=== PATIENT | female | born 1940 | race Caucasian/White ===

== ENCOUNTER 2016-11-20 17:00 | Inpatient (IN) | payer OTHER ==
[~2016-11-20] VITALS: Ht 152.4 cm; Wt 82.0 kg
[~2016-11-20 17:00] MED LIST: ALBU1AER9 INH; ALLO100T PO; CLOP1TAB15 PO; CRAN1CAP16 PO; DOCU100C31 PO; ERGO1TAB10 PO; INSUINJ SQ; LEVO50TA PO; LOVA40TA3 PO; MAGN1CAP4 PO; NYST100010 TOP; NYST80OI TOP; ONDA4TAB46 PO; OXYB5TAB74 PO; PANT40TA PO; POTA10CA28 PO; RANI150T3 PO; RIVA1TAB4 PO; SUCR1TAB29 PO; SYMIN160 INH; TRAM-10 PO
[2016-11-20] MEDS ORDERED: ALLO300T2 PO (17:10)
[2016-11-20] MEDS ORDERED: FERR325T5 PO (17:10)
[2016-11-20] MEDS ORDERED: MISC4CAP PO (17:41)
[2016-11-20] MEDS ORDERED: CRAN200C PO (17:41)
[2016-11-20] MEDS ORDERED: LEVO75TA5 PO (17:41)
[2016-11-20] MEDS ORDERED: MAGN1TAB19 PO (17:41)
[2016-11-20] MEDS ORDERED: POLY99.0 OPB (17:41)
[2016-11-20] MEDS ORDERED: OPTIRAY 320 IV PRN (17:45)
[2016-11-20] MEDS ORDERED: GUAI1TAB55 PO (17:47)
[2016-11-20] MEDS ORDERED: NVLNI SC (17:47)
[2016-11-20] MEDS ORDERED: TPRSR/25 PO (17:47)
[2016-11-20] MEDS ORDERED: POTA20TA13 PO (18:00)
[2016-11-20] MEDS ORDERED: PRVC/40 PO (18:00)
[2016-11-20] MEDS ORDERED: METO2.5T PO (18:00)
[2016-11-20] MEDS ORDERED: SERT25TA PO (18:00)
[2016-11-20] MEDS ORDERED: SCPTP TOP (18:00)
[2016-11-20] MEDS ORDERED: PRED20TA PO (18:00)
[2016-11-20] MEDS ORDERED: ONDA8TAB12 PO (18:04)
[2016-11-20 18:08] LABS: ISTAT CREATININE 1.2 mg/dl (0.6-1.3); ISTAT HEMOGLOBIN 12.9 g/dl (12.0-16.0); ISTAT IONIZED CALCIUM 1.22 mmol/l (1.12-1.32)
[2016-11-20] MEDS ORDERED: ACET325T96 PO (18:15)
[2016-11-20] MEDS ORDERED: SODIENE PR (18:15)
[2016-11-20] MEDS ORDERED: BISA10SU7 PR (18:15)
[2016-11-20] MEDS ORDERED: IPRASOL4 INH (18:15)
[2016-11-20] MEDS ORDERED: TRAM-10 PO (18:15)
[2016-11-20] MEDS ORDERED: MOML PO (18:15)
[2016-11-20 18:25] LABS: ALT/SGPT 18 U/L (12-78); BLOOD UREA NITROGEN 51 mg/dl (7-18); BUN/CREATININE RATIO 42.5 (10-20); CALCIUM 9.9 mg/dl (8.5-10.1); CARBON DIOXIDE 29 mmol/L (21-32); CHLORIDE 93 mmol/L (98-107); GLUCOSE 217 mg/dl (70-99); POTASSIUM 3.1 mmol/L (3.5-5.1); SODIUM 136 mmol/L (136-145)
[2016-11-20 18:29] LABS: ALB/GLOB RATIO 0.6 (0.9-2); ALKALINE PHOSPHATASE 110 U/L (45-117); AST/SGOT 16 U/L (15-37)
[2016-11-20 18:47] LABS: HEMATOCRIT 36.2 % (37-47); MEAN CELL VOLUME 83.4 fL (80-100); MEAN CORPUSCULAR HEMOGLOBIN 27.9 pg (25-34); MEAN CORPUSCULAR HGB CONC 33.4 g/dl (32-36); MEAN PLATELET VOLUME 10.1 fL (7.4-10.4); PLATELET COUNT 352 K/uL (130-400); RED BLOOD COUNT 4.34 M/uL (4.2-5.4); WHITE BLOOD COUNT 31.36 K/uL (4.8-10.8)
[2016-11-20 18:48] LABS: BASO % 0.1 %; BASO ABS # 0.03 K/uL (0-0.2); COMPLETE YES; IG% 1.1 %; LYMPH % 3.5 %; LYMPH ABS # 1.09 K/uL (1.2-3.4); MONO % 2.1 %; NEUT % 93.2 %
[2016-11-20] MEDS ORDERED: FURO80TA63 PO (19:26)
--- NOTE | 2016-11-20 19:30 | DIAGNOSTIC IMAGING REPORT ---
CT ANGIOGRAPHY OF THE CHEST, PULMONARY EMBOLUS PROTOCOL CLINICAL HISTORY: Shortness of breath COMPARISON STUDY: Chest CT November 03, 2015 and chest radiograph October 18, 2016. TECHNIQUE: Following IV administration of 120 mL of Optiray-320, helical axial images of the chest were obtained utilizing the pulmonary embolus protocol. Maximal intensity projections and sagittal and coronal reformats were viewed on an independent 3D workstation. IV contrast was administered without complication. CT DOSE: 1713.64 mGy.cm FINDINGS: No pulmonary emboli are identified. The heart is moderately enlarged. There is no pericardial effusion. There are median sternotomy wires and a prosthetic aortic valve. No enlarged thoracic lymph nodes are present. The central airways are patent. No pneumothorax or pleural effusion is present. There are multifocal airspace opacities within both lower lobes. The abdomen and pelvis will be reported separately. A right pacemaker is in place. IMPRESSION: 1. No pulmonary emboli identified. 2. Multifocal airspace opacities within the lower lobes. An infectious etiology such as bronchopneumonia is favored. Atelectasis could appear similar but is considered less likely. 3. Moderate cardiomegaly. Electronically signed by: Yonathan Leung M.D. 11/20/2016 7:28 PM Dictated Date/Time: 11/20/2016 7:20 PM
[2016-11-20 19:31] LABS: INR 1.4 (0.9-1.1); PROTHROMBIN TIME (PATIENT) 14.8 SECONDS (9.0-12.0)
[2016-11-20 19:32] LABS: PARTIAL THROMBOPLASTIN RATIO 1.5
[2016-11-20] MEDS ORDERED: PIPERACILLIN/TAZOBACTAM 4.5 GM/100ML D5W IV STA (19:37)
[2016-11-20] MEDS ORDERED: VANCOMYCIN 1GM/270ML NSS IV STA (19:37)
--- NOTE | 2016-11-20 19:41 | DIAGNOSTIC IMAGING REPORT ---
CT OF THE ABDOMEN AND PELVIS WITH CONTRAST CLINICAL HISTORY: Previous diverticulitis. Abscess. Abnormal labs. COMPARISON STUDY: CT of the abdomen and pelvis October 18, 2016 TECHNIQUE: Following IV administration of 120 mL of Optiray-320, axial images of the abdomen and pelvis were obtained from the lung bases to the proximal femurs. Images were reviewed in the axial, sagittal, and coronal planes. IV contrast was administered without complication. Oral contrast was administered. FINDINGS: The chest will be reported separately. Several subcentimeter hepatic lesions are likely benign. These are too small to characterize. Bilateral adrenal nodules/nodularity remains unchanged. The spleen, pancreas and kidneys are unremarkable. No pneumatosis, free air or portal venous gas is present. Note is made of extensive diverticulosis of the colon. There is wall thickening of the distal descending colon and proximal to mid sigmoid colon with mild to moderate adjacent infiltration. This has improved since exam of October 18, 2016. The previously described diverticular abscess along the left aspect of the bladder dome has decreased in size. It now measures 2.9 x 1.8 cm. It previously measured 3.5 x 3.4 cm. This contains mostly gas with a small amount of fluid. There is an apparent tract to the skin, possibly from a prior percutaneous drainage. No additional abscesses are identified. There is no gas within the bladder. There is asymmetric wall thickening of the bladder adjacent to the abscess/diverticulitis. IMPRESSION: 1. Acute diverticulitis of the proximal sigmoid colon. Mild improvement since exam of October 18, 2016. Interval decrease in size of the diverticular abscess along the left aspect of the bladder dome status post apparent interval percutaneous drainage. This can be correlated with prior procedural history. Minimal amount of fluid within the cavity. No new abscess. A follow-up colonoscopy once the patient's acute symptoms resolve is recommended to exclude the less likely possibility of an underlying mass. 2. Persistent wall thickening of the bladder which is due to diverticulitis. No gas within the bladder to indicate a fistula at this time although the patient is at risk for development of a colovesicular fistula. Electronically signed by: Yonathan Leung M.D. 11/20/2016 7:39 PM Dictated Date/Time: 11/20/2016 7:28 PM
[2016-11-20 20:02] LABS: VEN BLOOD GAS BASE EXCESS 4.2 mmol/L; VENOUS BLOOD GAS PCO2 46 mmHg (38.0-50.0); VENOUS BLOOD GAS PO2 28 mmHg
[2016-11-20 20:04] LABS: VEN BLD GAS O2 SATURATION < 60.0 %
[2016-11-20 20:13] LABS: URINE APPEARANCE CLEAR (CLEAR); URINE BILIRUBIN NEG (NEG); URINE COLOR YELLOW; URINE EPITHELIAL CELL AUTO 0-5 /lpf (0-5); URINE NITRITE NEG (NEG); URINE PH 7.5 (4.5-7.5); URINE SPECIFIC GRAVITY 1.015 (1.000-1.030); UROBILINOGEN NEG (NEG); ZZURINE CULT IF INDIC CATH NO
[2016-11-20 20:17] LABS: MANUAL MICROSCOPIC REQUIRED? NO; REVIEW REQ? NO
--- NOTE | 2016-11-20 20:24 | EMERGENCY ROOM VISIT NOTE ---
History Report prepared by Odilon: Marielena Puga Under the Supervision of: Luisa MendiolaO. First contact with patient: 17:01 Chief Complaint: ABNORMAL LABS Stated Complaint: ABNORMAL LABS History of Present Illness The patient is a 76 year old female who presents to the Emergency Room with complaints of a persistent cough that began five weeks ago. She does admit that this has been getting worse. Staff notes that she has been coughing much more and becoming more short of breath. The patient states that she recently had diverticulitis and notes that she has an abscess in her abdomen from it. She states that she is not on antibiotics currently. The patient states that she developed a cough that has been persistent for a while now. EMS reports that the patient was sent here from [facility]. The patient states that her last bowel movement was yesterday. Pt denies headache, change in vision, fevers, chest pain, shortness of breath, nausea, vomiting, diarrhea, pain with urination, and melena. Source of History: patient Onset: five weeks ago Position: other (global) Quality: other (cough) Timing: other (persistent) Review of Systems See HPI for pertinent positives & negatives. A total of 10 systems reviewed and were otherwise negative. Past Medical & Surgical Medical Problems: (1) Acute respiratory failure with hypoxia (2) Collins's palsy (3) CHF (congestive heart failure) (4) COPD (chronic obstructive pulmonary disease) (5) COPD exacerbation (6) Diverticulitis (7) Ductal carcinoma in situ (DCIS) of left breast (8) Emphysema of lung (9) Frequent falls (10) Gait abnormality (11) GERD (gastroesophageal reflux disease) (12) hyperkalemia, acute kidney failure, fall (13) Leucocytosis (14) Pacemaker (15) Pneumonia (16) Sepsis (17) sepsis, UTI, severe hypokalemia Surgical Problems: (1) H/O aortic valve replacement (2) S/P AVR (aortic valve replacement) Family History Cancer Diabetes mellitus Heart disease Hypertension Social History Smoking Status: Never Smoker Alcohol Use: none Drug Use: none Marital Status: Housing Status: lives alone Occupation Status: retired Current/Historical Medications Scheduled Allopurinol (Zyloprim), 300 MG PO DAILY Allopurinol (Zyloprim), 100 MG PO DAILY Budesonide/Formoterol Fumarate (Symbicort 160/4.5 Inhaler ), 2 PUFFS INH BID Clopidogrel (Plavix), 75 MG PO DAILY Cranberry (Vaccinium Macrocarp (Cranberry Extract), 200 MG PO DAILY Docusate Sodium (Docusate Sodium), 100 MG PO BID Ferrous Sulfate (Ferrous Sulfate), 325 MG PO DAILY Furosemide (Lasix), 80 MG PO BID Guaifenesin Ext Rel (Mucinex Ext Rel), 600 MG PO Q12 Insulin Human NPH (Novolin N), 16 UNITS SC DAILY Levothyroxine Sodium (Levothyroxine Sodium), 75 MCG PO DAILY Loratadine (Claritin), 10 MG PO DAILY Magnesium Oxide (Mg Supplement (Magnesium Oxide), 400 MG PO BID Metolazone (Zaroxolyn), 2.5 MG PO 3XWK Metoprolol Succinate (Metoprolol Succinate ER), 12.5 MG PO BID Oxybutynin Chloride (Ditropan), 5 MG PO BID Pantoprazole (Protonix), 40 MG PO DAILY Polyvinyl Alcohol (Artificial Tears), 1 DROP OPB QID Potassium Chloride Microencaps (Potassium Chloride Er), 40 MEQ PO BID Pravastatin Sod (Pravastatin Sodium), 40 MG PO QPM Prednisone (Prednisone), 40 MG PO DAILY Probiotic Product (Align), 4 MG PO DAILY Ranitidine Hcl (Zantac), 150 MG PO BID Rivaroxaban (Xarelto), 20 MG PO DAILY Scopolamine (Transderm-Scop), 1.5 MG TOP [id number] Sertraline (Zoloft), 25 MG PO DAILY Sucralfate (Carafate), 1 GM PO ACHS Scheduled PRN Acetaminophen Tab (Tylenol), 650 MG PO Q4H PRN for Mild Pain Albuterol (Proair Hfa), 2 PUFFS INH UD PRN for SOB/Wheezing Bisacodyl (Bisac-Evac), 10 MG WV UD PRN for Constipation Ipratropium-Albuterol (Duoneb), 1 TREATMENT INH Q6H PRN for SOB/Wheezing Magnesium Hydroxide (Milk Of Magnesia), 30 ML PO UD PRN for Constipation Ondansetron Hcl (Zofran), 8 MG PO Q6H PRN for Nausea or Vomiting Sodium Phosphate/Biphosphate (Fleet Enema), 1 EA WV UD PRN for Constipation Tramadol (Ultram), 25 MG PO Q4H PRN for Moderate Pain Tramadol (Ultram), 50 MG PO Q4H PRN for Severe Pain Allergies Coded Allergies: Atorvastatin (Verified Allergy, Severe, SWELLING, 08/13/16) Sulfa Antibiotics (Verified Allergy, Severe, MOUTH AND TOUNGE SWELL, ) Angiotensin Receptor Blockers (Verified Allergy, Unknown, Unknown, 11/20/16) Losartan (Verified Allergy, Unknown, swelling/reflux, 08/13/16) Morphine and Related (Verified Allergy, Unknown, Unknown, 11/20/16) Quinolones (Verified Allergy, Unknown, Unknown, 11/20/16) Statins (Verified Allergy, Unknown, Unknown, 11/20/16) Sulfonylureas (Verified Allergy, Unknown, Unknown, 11/20/16) Glipizide (Verified Adverse Reaction, Intermediate, NAUSEA, 08/13/16) Metformin (Verified Adverse Reaction, Intermediate, vomiting, 08/13/16) Nitrofurantoin (Verified Adverse Reaction, Intermediate, dizziness,nausea vomiting, 08/13/16) BROWN Inhibitors (Verified Adverse Reaction, Mild, COUGH, 08/13/16) Levofloxacin (Verified Adverse Reaction, Mild, NAUSEA, 08/13/16) Lisinopril (Verified Adverse Reaction, Mild, cough, 08/13/16) Pravastatin (Verified Adverse Reaction, Mild, NAUSEA, 08/13/16) Cephalexin (Verified Adverse Reaction, Unknown, GI SYMPTOMS, 10/18/16) Oxycodone (Verified Adverse Reaction, Unknown, DELIRIUM, 08/13/16) Physical Exam Vital Signs Date Time Temp Pulse Resp B/P Pulse Ox O2 Delivery O2 Flow Rate FiO2 11/20/16 19:46 82 11/20/16 18:51 82 18 105/74 97 Room Air 11/20/16 17:35 Room Air 11/20/16 17:13 36.7 81 20 118/87 94 Room Air Physical Exam GENERAL: Sitting up in bed, no acute distress, nontoxic. EYE EXAM: normal conjunctiva. OROPHARYNX: no exudate, no erythema, lips, buccal mucosa, and tongue normal and mucous membranes are moist NECK: supple, no nuchal rigidity, no adenopathy, non-tender LUNGS: Rhonchi bilaterally. Normal chest wall mechanics HEART: no murmurs, S1 normal and S2 normal ABDOMEN: Small incision is well healed with a port hole inferior to the umbilicus, slight amount of green drainage. abdomen soft, non-tender, normo- active bowel sounds, no masses, no rebound or guarding. BACK: Back is symmetrical on inspection and there is no deformity, no midline tenderness, no CVA tenderness. SKIN: no rashes and no bruising UPPER EXTREMITIES: upper extremities are grossly normal. LOWER EXTREMITIES: No pitting edema. Calves are equal bilaterally NEURO EXAM: Normal sensorium, cranial nerves II-XII grossly intact, normal speech, no gross weakness of arms, no gross weakness of legs. Medical Decision & Procedures ER Provider Diagnostic Interpretation: CT:Per my review, radiologist interpretation. CT ANGIOGRAPHY OF THE CHEST, PULMONARY EMBOLUS PROTOCOL CLINICAL HISTORY: Shortness of breath COMPARISON STUDY: Chest CT November 03, 2015 and chest radiograph October 18, 2016. TECHNIQUE: Following IV administration of 120 mL of Optiray-320, helical axial images of the chest were obtained utilizing the pulmonary embolus protocol. Maximal intensity projections and sagittal and coronal reformats were viewed on an independent 3D workstation. IV contrast was administered without complication. CT DOSE: 1713.64 mGy.cm FINDINGS: No pulmonary emboli are identified. The heart is moderately enlarged. There is no pericardial effusion. There are median sternotomy wires and a prosthetic aortic valve. No enlarged thoracic lymph nodes are present. The central airways are patent. No pneumothorax or pleural effusion is present. There are multifocal airspace opacities within both lower lobes. The abdomen and pelvis will be reported separately. A right pacemaker is in place. IMPRESSION: 1. No pulmonary emboli identified. 2. Multifocal airspace opacities within the lower lobes. An infectious etiology such as bronchopneumonia is favored. Atelectasis could appear similar but is considered less likely. 3. Moderate cardiomegaly. Electronically signed by: Yonathan Leung M.D. 11/20/2016 7:28 PM Dictated Date/Time: 11/20/2016 7:[address] OF THE ABDOMEN AND PELVIS WITH CONTRAST CLINICAL HISTORY: Previous diverticulitis. Abscess. Abnormal labs. COMPARISON STUDY: CT of the abdomen and pelvis October 18, 2016 TECHNIQUE: Following IV administration of 120 mL of Optiray-320, axial images of the abdomen and pelvis were obtained from the lung bases to the proximal femurs. Images were reviewed in the axial, sagittal, and coronal planes. IV contrast was administered without complication. Oral contrast was administered. FINDINGS: The chest will be reported separately. Several subcentimeter hepatic lesions are likely benign. These are too small to characterize. Bilateral adrenal nodules/nodularity remains unchanged. The spleen, pancreas and kidneys are unremarkable. No pneumatosis, free air or portal venous gas is present. Note is made of extensive diverticulosis of the colon. There is wall thickening of the distal descending colon and proximal to mid sigmoid colon with mild to moderate adjacent infiltration. This has improved since exam of October 18, 2016. The previously described diverticular abscess along the left aspect of the bladder dome has decreased in size. It now measures 2.9 x 1.8 cm. It previously measured 3.5 x 3.4 cm. This contains mostly gas with a small amount of fluid. There is an apparent tract to the skin, possibly from a prior percutaneous drainage. No additional abscesses are identified. There is no gas within the bladder. There is asymmetric wall thickening of the bladder adjacent to the abscess/diverticulitis. IMPRESSION: 1. Acute diverticulitis of the proximal sigmoid colon. Mild improvement since exam of October 18, 2016. Interval decrease in size of the diverticular abscess along the left aspect of the bladder dome status post apparent interval percutaneous drainage. This can be correlated with prior procedural history. Minimal amount of fluid within the cavity. No new abscess. A follow-up colonoscopy once the patient's acute symptoms resolve is recommended to exclude the less likely possibility of an underlying mass. 2. Persistent wall thickening of the bladder which is due to diverticulitis. No gas within the bladder to indicate a fistula at this time although the patient is at risk for development of a colovesicular fistula. Electronically signed by: Yonathan Leung M.D. 11/20/2016 7:39 PM Dictated Date/Time: 11/20/2016 7:28 PM Laboratory Results 11/20/16 17:50 Red Blood Count 4.34, Mean Corpuscular Volume 83.4, Mean Corpuscular Hemoglobin 27.9, Mean Corpuscular Hemoglobin Concent 33.4, Mean Platelet Volume 10.1, Neutrophils (%) (Auto) 93.2, Lymphocytes (%) (Auto) 3.5, Monocytes (%) (Auto) 2.1, Eosinophils (%) (Auto) 0.0, Basophils (%) (Auto) 0.1, Neutrophils # (Auto) 29.22, Lymphocytes # (Auto) 1.09, Monocytes # (Auto) 0.66, Eosinophils # (Auto) 0.00, Basophils # (Auto) 0.03 11/20/16 17:50 Test 11/20/16 17:50 11/20/16 17:51 11/20/16 19:45 11/20/16 19:46 White Blood Count 31.36 K/uL (4.8-10.8) Red Blood Count 4.34 M/uL (4.2-5.4) Hemoglobin 12.1 g/dL (12.0-16.0) Hematocrit 36.2 % (37-47) Mean Corpuscular Volume 83.4 fL (80-100) Mean Corpuscular Hemoglobin 27.9 pg (25-34) Mean Corpuscular Hemoglobin Concent 33.4 g/dl (32-36) Platelet Count 352 K/uL (130-400) Mean Platelet Volume 10.1 fL (7.4-10.4) Neutrophils (%) (Auto) 93.2 % Lymphocytes (%) (Auto) 3.5 % Monocytes (%) (Auto) 2.1 % Eosinophils (%) (Auto) 0.0 % Basophils (%) (Auto) 0.1 % Neutrophils # (Auto) 29.22 K/uL (1.4-6.5) Lymphocytes # (Auto) 1.09 K/uL (1.2-3.4) Monocytes # (Auto) 0.66 K/uL (0.11-0.59) Eosinophils # (Auto) 0.00 K/uL (0-0.5) Basophils # (Auto) 0.03 K/uL (0-0.2) RDW Standard Deviation 47.6 fL (36.4-46.3) RDW Coefficient of Variation 15.7 % (11.5-14.5) Immature Granulocyte % (Auto) 1.1 % Immature Granulocyte # (Auto) 0.36 K/uL (0.00-0.02) Prothrombin Time 14.8 SECONDS (9.0-12.0) Prothromb Time International Ratio 1.4 (0.9-1.1) Activated Partial Thromboplast Time 39.7 SECONDS (21.0-31.0) Partial Thromboplastin Ratio 1.5 D-Dimer 3440 ug/L FEU (0-500) Estimated GFR () 51.2 Estimated GFR (Non- 44.2 BUN/Creatinine Ratio 42.5 (10-20) Calcium Level 9.9 mg/dl (8.5-10.1) Total Bilirubin 0.3 mg/dl (0.2-1) Aspartate Amino Transf (AST/SGOT) 16 U/L (15-37) Alanine Aminotransferase (ALT/SGPT) 18 U/L (12-78) Alkaline Phosphatase 110 U/L (45-117) Troponin I < 0.015 ng/ml (0-0.045) Total Protein 7.6 gm/dl (6.4-8.2) Albumin 2.9 gm/dl (3.4-5.0) Globulin 4.7 gm/dl (2.5-4.0) Albumin/Globulin Ratio 0.6 (0.9-2) Bedside Hemoglobin 12.9 g/dl (12.0-16.0) Bedside Hematocrit 38 % (37-47) Bedside Sodium 133 mEq/L (135-144) Bedside Potassium 3.1 mEq/L (3.3-5.0) Bedside Chloride 92 mEq/L (101-112) Bedside Total CO2 29 mEq/l (24-31) Anion Gap 16.0 mmol/L (16-25) Bedside Blood Urea Nitrogen 47 mg/dl (7-18) Bedside Creatinine 1.2 mg/dl (0.6-1.3) Bedside Glucose (other) 220 mg/dl (70-99) Bedside Ionized Calcium (Russ) 1.22 mmol/l (1.12-1.32) Influenza Type A Antigen Neg for Influ A (NEG) Influenza Type B Antigen Neg for Influ B (NEG) Urine Color YELLOW Urine Appearance CLEAR (CLEAR) Urine pH 7.5 (4.5-7.5) Urine Specific [place] 1.015 (1.000-1.030) Urine Protein NEG (NEG) Urine Glucose (UA) NEG (NEG) Urine Ketones NEG (NEG) Urine Occult Blood NEG (NEG) Urine Nitrite NEG (NEG) Urine Bilirubin NEG (NEG) Urine Urobilinogen NEG (NEG) Urine Leukocyte Esterase NEG (NEG) Urine WBC (Auto) 0 /hpf (0-5) Urine RBC (Auto) 0-4 /hpf (0-4) Urine Hyaline Casts (Auto) 1-5 /lpf (0-5) Urine Epithelial Cells (Auto) 0-5 /lpf (0-5) Urine Bacteria (Auto) NEG (NEG) Venous Blood pH 7.43 (7.36-7.41) Venous Blood Partial Pressure CO2 46 mmHg (38.0-50.0) Venous Blood Partial Pressure O2 28 mmHg Venous Blood HCO3 29 mmol/L Venous Blood Oxygen Saturation < 60.0 % Venous Blood Base Excess 4.2 mmol/L Laboratory results per my review. Medications Administered Medications (Trade) Dose Ordered Sig/Vibha Route Start Time Stop Time Status Last Admin Dose Admin Piperacillin Sod/ Tazobactam Sod (Zosyn Iv) 4.5 gm NOW STAT IV 11/20/16 19:37 11/20/16 19:39 DC 11/20/16 20:09 4.5 GM ECG Indication: SOB/dyspnea, other (cough) Rate (beats per minute): 86 Rhythm: atrial flutter (variable block) Findings: PVC, ST depression (inferiorly, anterior, lateral), other (left axis) Comparison ECG Date: 10/18/16 Change: no significant change ED Course ED COURSE: Vital signs were reviewed and showed normal vitals The patients medical record was reviewed The above diagnostic studies were performed and reviewed. ED treatments and interventions as stated above. 1701: The patient was evaluated in room B4A. A complete history and physical examination was performed. 1715: They state that the patient was sent over for a large white count and her potassium is abnormal. They are concerned for sepsis. The patient was started on steroids yesterday. 1936: Ordered Vancomycin HCl 2 gm IV, Zosyn IV 4.5 gm IV. 1944: Upon reevaluation, the patient is resting comfortably. I discussed my findings with the patient and she understands and agrees with the treatment plan. Based on the patients age, coexisting illnesses, exam and lab findings the decision to treat as an inpatient was made. The patient remained stable while under my care. The patient will be evaluated for further management. 2011: I discussed the patient's case with Dr. Obando [facility] [place]. He is going to evaluate the patient for further treatment. 2012: I reevaluated the patient and she is doing well. I updated her on the plan. Medical Decision Differential diagnoses includes but is not limited to pneumonia, bronchitis, COPD/Asthma exacerbation, pneumothorax, pulmonary embolism, congestive heart failure, acute coronary syndrome Patient is a 76-year-old female who was recently admitted and discharged on November 02 from [facility] for diverticulitis with diverticular abscess. At that time she had abdominal pain with persistent nausea vomiting. She denies any complaints today with exception of slight shortness of breath. Nursing staff notes that she has been coughing more and has become more short of breath. She recently started a small dose steroids yesterday. Labs today show significant leukocytosis 30,000. CT of her chest shows bilateral infiltrates. CT of her abdomen shows diverticulitis with a small diverticular abscess. She was recently seen 2 days ago by [facility] who had a CAT scan at that time and instructed her to follow-up with GI and finish her antibiotics. I discussed my findings with general surgery from [facility] and they agree that her symptoms are not secondary to the small abscess. Currently there is a 2 day wait for transfer to [facility]. Remainder labs show mild hypokalemia. UA was negative. Influenza was negative. EKG did show a flutter with a variable block. She is no chest pain or shortness breath. She does have ST depressions in the lateral leads which are unchanged from previous EKG. VBG was fairly unremarkable. Patient was given IV Zosyn and vancomycin to cover for HCAP and was discussed with internal medicine. Patient was updated bedside. Patient will be admitted for sepsis secondary to pneumonia. Consults Time Called: 1707 Consulting Physician: Lillian Robison Returned Call: [phone] They state that the patient was sent over for a large white count and her potassium is abnormal. They are concerned for sepsis. The patient was started on steroids yesterday. Additional Consults: Time Called: 1942 Consulted Physician: SHAYAN Doherty Returned Call: 2011 Additional Comments: I discussed the patient's case with SHAYAN Doherty. He is going to evaluate the patient for further treatment. Impression Primary Impression: Bilateral pneumonia Additional Impressions: Sepsis, Diverticulitis, diverticular abscess, A- flutter with variable block Scribe Attestation The scribe's documentation has been prepared under my direction and personally reviewed by me in its entirety. I confirm that the note above accurately reflects all work, treatment, procedures, and medical decision making performed by me. Departure Information Dispostion Being Evaluated By Hospitalist
--- NOTE | 2016-11-20 20:54 | History and Physical ---
History & Physical Date & Time of Service: Nov 20, 2016 at 20:33 Chief Complaint: Abnormal Labs Primary Care Physician: No Doctor, Assigned History of Present Illness Source: patient 75 y/o F w/Hx frequent falls, diastolic CHF, AF, CAD. Recent admit to [facility] for management of a diverticular abscess requiring drainage. Drain was removed and pt was D/Cd 3 days prior. She was sent to a rehab facility and developed a productive cough. She denied significant SOB or wheezing. Denies CP or fevers. CTA reveals B/L PNM. A CT abdomen was also repeated revealing diverticulitis with abscess which has improved from previous. Past Medical/Surgical History Past Medical/Surgical History Medical Problems: (1) CHF (congestive heart failure) Status: Chronic Diastolic (2) COPD (chronic obstructive pulmonary disease) Status: Chronic (3) Ductal carcinoma in situ (DCIS) of left breast Permanent Comment: Abnormal left breast mammogram Status post biopsy revealing DCIS Reexcision with no residual disease status post completion of radiation therapy 08/17/2012 utilizing accelerated partial breast treatment received 3850 cGy Reexcision of fibroadipose tissue and fat necrosis 02/15/2014 (4) Emphysema of lung Status: Chronic (5) GERD (gastroesophageal reflux disease) Status: Chronic (6) Pacemaker Status: Chronic 7) Morbid obesity 8) DM 2 9) Chronic AF 10) Chronic leukocytosis 11) Chronically elevated BUN without creatinine elevation. 12) CAD - NSTEMI - cath/stent 11/30 13) Diverticular abscess requiring drainage 12/01 14) Gout Surgical Problems: (1) H/O aortic valve replacement Status: Chronic (2) S/P AVR (aortic valve replacement) Status: Resolved Family History Cancer Diabetes mellitus Heart disease Hypertension Social History Smoking Status: Never Smoker Drug Use: none Marital Status: Housing status: lives alone Occupational Status: retired Immunizations History of Influenza Vaccine: Yes Influenza Vaccine Date: Aug 02, 2011 History of Tetanus Vaccine?: Yes History of Pneumococcal: Yes Pneumococcal Date: Jul 02, 2000 History of Hepatitis B Vaccine: No Multi-Drug Resistant Organisms History of MDRO: No Allergies Coded Allergies: Atorvastatin (Verified Allergy, Severe, SWELLING, 08/13/16) Sulfa Antibiotics (Verified Allergy, Severe, MOUTH AND TOUNGE SWELL, ) Angiotensin Receptor Blockers (Verified Allergy, Unknown, Unknown, 11/20/16) Losartan (Verified Allergy, Unknown, swelling/reflux, 08/13/16) Morphine and Related (Verified Allergy, Unknown, Unknown, 11/20/16) Quinolones (Verified Allergy, Unknown, Unknown, 11/20/16) Statins (Verified Allergy, Unknown, Unknown, 11/20/16) Sulfonylureas (Verified Allergy, Unknown, Unknown, 11/20/16) Glipizide (Verified Adverse Reaction, Intermediate, NAUSEA, 08/13/16) Metformin (Verified Adverse Reaction, Intermediate, vomiting, 08/13/16) Nitrofurantoin (Verified Adverse Reaction, Intermediate, dizziness,nausea vomiting, 08/13/16) BROWN Inhibitors (Verified Adverse Reaction, Mild, COUGH, 08/13/16) Levofloxacin (Verified Adverse Reaction, Mild, NAUSEA, 08/13/16) Lisinopril (Verified Adverse Reaction, Mild, cough, 08/13/16) Pravastatin (Verified Adverse Reaction, Mild, NAUSEA, 08/13/16) Cephalexin (Verified Adverse Reaction, Unknown, GI SYMPTOMS, 10/18/16) Oxycodone (Verified Adverse Reaction, Unknown, DELIRIUM, 08/13/16) Home Medications Scheduled Allopurinol (Zyloprim), 300 MG PO DAILY Allopurinol (Zyloprim), 100 MG PO DAILY Budesonide/Formoterol Fumarate (Symbicort 160/4.5 Inhaler ), 2 PUFFS INH BID Clopidogrel (Plavix), 75 MG PO DAILY Cranberry (Vaccinium Macrocarp (Cranberry Extract), 200 MG PO DAILY Docusate Sodium (Docusate Sodium), 100 MG PO BID Ferrous Sulfate (Ferrous Sulfate), 325 MG PO DAILY Furosemide (Lasix), 80 MG PO BID Guaifenesin Ext Rel (Mucinex Ext Rel), 600 MG PO Q12 Insulin Human NPH (Novolin N), 16 UNITS SC DAILY Levothyroxine Sodium (Levothyroxine Sodium), 75 MCG PO DAILY Loratadine (Claritin), 10 MG PO DAILY Magnesium Oxide (Mg Supplement (Magnesium Oxide), 400 MG PO BID Metolazone (Zaroxolyn), 2.5 MG PO 3XWK Metoprolol Succinate (Metoprolol Succinate ER), 12.5 MG PO BID Oxybutynin Chloride (Ditropan), 5 MG PO BID Pantoprazole (Protonix), 40 MG PO DAILY Polyvinyl Alcohol (Artificial Tears), 1 DROP OPB QID Potassium Chloride Microencaps (Potassium Chloride Er), 40 MEQ PO BID Pravastatin Sod (Pravastatin Sodium), 40 MG PO QPM Prednisone (Prednisone), 40 MG PO DAILY Probiotic Product (Align), 4 MG PO DAILY Ranitidine Hcl (Zantac), 150 MG PO BID Rivaroxaban (Xarelto), 20 MG PO DAILY Scopolamine (Transderm-Scop), 1.5 MG TOP [id number] Sertraline (Zoloft), 25 MG PO DAILY Sucralfate (Carafate), 1 GM PO ACHS Scheduled PRN Acetaminophen Tab (Tylenol), 650 MG PO Q4H PRN for Mild Pain Albuterol (Proair Hfa), 2 PUFFS INH UD PRN for SOB/Wheezing Bisacodyl (Bisac-Evac), 10 MG OK UD PRN for Constipation Ipratropium-Albuterol (Duoneb), 1 TREATMENT INH Q6H PRN for SOB/Wheezing Magnesium Hydroxide (Milk Of Magnesia), 30 ML PO UD PRN for Constipation Ondansetron Hcl (Zofran), 8 MG PO Q6H PRN for Nausea or Vomiting Sodium Phosphate/Biphosphate (Fleet Enema), 1 EA OK UD PRN for Constipation Tramadol (Ultram), 25 MG PO Q4H PRN for Moderate Pain Tramadol (Ultram), 50 MG PO Q4H PRN for Severe Pain Review of Systems Constitutional: + fatigue, + weakness, No chills, No fever, No sweats Eyes: No worsening of vision ENT: No hearing loss, No nasal symptoms, No unusual epistaxis Respiratory: + cough, + sputum, No shortness of breath, No wheezing Cardiovascular: No PND, No chest pain, No orthopnea Abdomen: + pain, No diarrhea, No nausea, No vomiting Musculoskeletal: No joint pain, No muscle pain Genitourinary - Female: No dysuria, No urinary frequency, No urinary urgency Neurologic: No memory loss Psychiatric: No depression symptoms Endocrine: No fatigue Hematologic / Lymphatic: No abnormal bleeding/bruising Integumentary: No rash Allergic / Immunologic: No environmental allergies Physical Exam Vital Signs Date Time Temp Pulse Resp B/P Pulse Ox O2 Delivery O2 Flow Rate FiO2 11/20/16 19:46 82 11/20/16 18:51 82 18 105/74 97 Room Air 11/20/16 17:35 Room Air 11/20/16 17:13 36.7 81 20 118/87 94 Room Air General Appearance: WD/WN, no apparent distress Head: normocephalic Eyes: normal inspection ENT: normal ENT inspection, pharynx normal Neck: supple, no JVD Respiratory/Chest: chest non-tender, no respiratory distress, no accessory muscle use, + crackles Cardiovascular: normal peripheral pulses, + systolic murmur, + irregularly irregular Abdomen/GI: normal bowel sounds, + tenderness (LLQ) Back: normal inspection Extremities/Musculoskelatal: normal inspection, no calf tenderness, normal capillary refill, + pedal edema 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, no motor/sensory deficits, alert, + pertinent finding (Lethargy noted ) Skin: normal color, + pertinent finding (Drain site healing in LLQ) Diagnostics Laboratory Results Results Past 24 Hours Test 11/20/16 17:50 11/20/16 17:51 11/20/16 19:45 11/20/16 19:46 Range/Units White Blood Count 31.36 4.8-10.8 K/uL Red Blood Count 4.34 4.2-5.4 M/uL Hemoglobin 12.1 12.0-16.0 g/dL Hematocrit 36.2 37-47 % Mean Corpuscular Volume 83.4 80-100 fL Mean Corpuscular Hemoglobin 27.9 25-34 pg Mean Corpuscular Hemoglobin Concent 33.4 32-36 g/dl Platelet Count 352 130-400 K/uL Mean Platelet Volume 10.1 7.4-10.4 fL Neutrophils (%) (Auto) 93.2 % Lymphocytes (%) (Auto) 3.5 % Monocytes (%) (Auto) 2.1 % Eosinophils (%) (Auto) 0.0 % Basophils (%) (Auto) 0.1 % Neutrophils # (Auto) 29.22 1.4-6.5 K/uL Lymphocytes # (Auto) 1.09 1.2-3.4 K/uL Monocytes # (Auto) 0.66 0.11-0.59 K/uL Eosinophils # (Auto) 0.00 0-0.5 K/uL Basophils # (Auto) 0.03 0-0.2 K/uL RDW Standard Deviation 47.6 36.4-46.3 fL RDW Coefficient of Variation 15.7 11.5-14.5 % Immature Granulocyte % (Auto) 1.1 % Immature Granulocyte # (Auto) 0.36 0.00-0.02 K/uL Prothrombin Time 14.8 9.0-12.0 SECONDS Prothromb Time International Ratio 1.4 0.9-1.1 Activated Partial Thromboplast Time 39.7 21.0-31.0 SECONDS Partial Thromboplastin Ratio 1.5 D-Dimer 3440 0-500 ug/L FEU Sodium Level 136 136-145 mmol/L Potassium Level 3.1 3.5-5.1 mmol/L Chloride Level 93 98-107 mmol/L Carbon Dioxide Level 29 21-32 mmol/L Anion Gap 14.0 16.0 16-25 mmol/L Blood Urea Nitrogen 51 7-18 mg/dl Creatinine 1.20 0.60-1.20 mg/dl Estimated GFR () 51.2 Estimated GFR (Non- 44.2 BUN/Creatinine Ratio 42.5 10-20 Random Glucose 217 70-99 mg/dl Calcium Level 9.9 8.5-10.1 mg/dl Total Bilirubin 0.3 0.2-1 mg/dl Aspartate Amino Transf (AST/SGOT) 16 15-37 U/L Alanine Aminotransferase (ALT/SGPT) 18 12-78 U/L Alkaline Phosphatase 110 45-117 U/L Troponin I < 0.015 0-0.045 ng/ml Total Protein 7.6 6.4-8.2 gm/dl Albumin 2.9 3.4-5.0 gm/dl Globulin 4.7 2.5-4.0 gm/dl Albumin/Globulin Ratio 0.6 0.9-2 Bedside Hemoglobin 12.9 12.0-16.0 g/dl Bedside Hematocrit 38 37-47 % Bedside Sodium 133 135-144 mEq/L Bedside Potassium 3.1 3.3-5.0 mEq/L Bedside Chloride 92 101-112 mEq/L Bedside Total CO2 29 24-31 mEq/l Bedside Blood Urea Nitrogen 47 7-18 mg/dl Bedside Creatinine 1.2 0.6-1.3 mg/dl Bedside Glucose (other) 220 70-99 mg/dl Bedside Ionized Calcium (Russ) 1.22 1.12-1.32 mmol/l Influenza Type A Antigen Neg for Influ A NEG Influenza Type B Antigen Neg for Influ B NEG Urine Color YELLOW Urine Appearance CLEAR CLEAR Urine pH 7.5 4.5-7.5 Urine Specific [place] 1.015 1.000-1.030 Urine Protein NEG NEG Urine Glucose (UA) NEG NEG Urine Ketones NEG NEG Urine Occult Blood NEG NEG Urine Nitrite NEG NEG Urine Bilirubin NEG NEG Urine Urobilinogen NEG NEG Urine Leukocyte Esterase NEG NEG Urine WBC (Auto) 0 0-5 /hpf Urine RBC (Auto) 0-4 0-4 /hpf Urine Hyaline Casts (Auto) 1-5 0-5 /lpf Urine Epithelial Cells (Auto) 0-5 0-5 /lpf Urine Bacteria (Auto) NEG NEG Venous Blood pH 7.43 7.36-7.41 Venous Blood Partial Pressure CO2 46 38.0-50.0 mmHg Venous Blood Partial Pressure O2 28 mmHg Venous Blood HCO3 29 mmol/L Venous Blood Oxygen Saturation < 60.0 % Venous Blood Base Excess 4.2 mmol/L Diagnostic Radiology CT abdomen 1. Acute diverticulitis of the proximal sigmoid colon. Mild improvement since exam of October 18, 2016. Interval decrease in size of the diverticular abscess along the left aspect of the bladder dome status post apparent interval percutaneous drainage. This can be correlated with prior procedural history. Minimal amount of fluid within the cavity. No new abscess. A follow-up colonoscopy once the patient's acute symptoms resolve is recommended to exclude the less likely possibility of an underlying mass. 2. Persistent wall thickening of the bladder which is due to diverticulitis. No gas within the bladder to indicate a fistula at this time although the patient is at risk for development of a colovesicular fistula. CTA IMPRESSION: 1. No pulmonary emboli identified. 2. Multifocal airspace opacities within the lower lobes. An infectious etiology EKG AF - occasional pacer spikes w/wide complex Impression Assessment and Plan 75 y/o F w/Hx frequent falls, diastolic CHF, AF, CAD. Recent admit to [facility] for management of a diverticular abscess requiring drainage. Drain was removed and pt was D/Cd 3 days prior. She was sent to a rehab facility and developed a productive cough. She denied significant SOB or wheezing. Denies CP or fevers. CTA reveals B/L PNM. A CT abdomen was also repeated revealing diverticulitis with abscess which has improved from previous. 1) B/L PNM - pt will be treated for HCAP considering multiple recent hospital visits. We will place her on Zosyn, Vanc, Zithro pending culture results. Will be provided with Nebulizers and an 02 protocol. 2) Diverticular abscess - improving per imaging - would be covered by above Abx 3) CHF - diastolic - she is clinically dehydrated and on a high dose of diuretics - we will provide gentle IVF and hold her Metolazone 4) CAD - denies CP - no evidence of ACS - cont Plavix, statin 5) COPD - cont home meds in addition to pneumonia treatments provided - she is on a prednisone taper 6) AF/pacer - rate controlled - not a good anticoag candidate due to falls 7) Deconditioned - PT/OT while in hospital Full code - Heparin prophylaxis Total time for this admit including extensive record review - med rec - review of labs, imaging, EKG - discussion with ER attending and pt - 43 min Level of Care Med/Surg Resuscitation Status FULL RESUSCITATION VTE Prophylaxis Given or contraindicated: SCD's
[2016-11-20] MEDS ORDERED: POLYETHYLENE (MIRALAX) 17 GM PACK PO PRN (21:00)
[2016-11-20] MEDS ORDERED: MAGNESIUM HYDROXIDE SUSP 30 ML UDC PO PRN ×2 (21:00)
[2016-11-20] MEDS ORDERED: ONDANSETRON 8 MG TAB PO PRN (21:00)
[2016-11-20] MEDS ORDERED: ALUMINUM/MAGNESIUM/SIMETH (MAALOX MAX) 30 ML UDC PO PRN (21:00)
[2016-11-20] MEDS ORDERED: TRAMADOL HCL 50 MG TAB PO PRN (21:00)
[2016-11-20] MEDS ORDERED: ACETAMINOPHEN 325 MG TAB PO PRN (21:00)
[2016-11-20] MEDS ORDERED: VANCOMYCIN INJ 2,000 MG in SODIUM CHLORIDE 0.9% 500ML 500 ML IV STA (21:25)
[2016-11-20] MEDS ORDERED: CLR10 PO (22:12)
[2016-11-20 22:35] VITALS: BP 96/57; PULSE 83; TEMP 36.5; O2SAT 95
[2016-11-20 23:40] VITALS: BP 106/68; PULSE 80; TEMP 36.5; O2SAT 95
[2016-11-20] MEDS ORDERED: PIPERACILL/TAZOBAC CONSULT ACTIVE PRN (23:45)
[2016-11-20] MEDS ORDERED: VANCOMYCIN CONSULT ACTIVE PRN (23:45)
[2016-11-21] VITALS (10 sets, daily range): BP systolic 100–126; BP diastolic 65–84; PULSE 76–99; TEMP 36.5–36.7; O2SAT 90–96; Ht 152.4 cm; Wt 82.0 kg
[2016-11-21] MEDS ORDERED: GLUCOSE 40% GEL 15 GM TUBE PO PRN (00:15)
[2016-11-21] MEDS ORDERED: GLUCAGON FOR INJ 1 MG VIAL SQ PRN (00:15)
[2016-11-21] MEDS ORDERED: PATIENT'S HEIGHT AND/OR WEIGHT NEEDED SCH (00:15)
[2016-11-21] MEDS ORDERED: SODIUM CHLORIDE 0.9% 1000ML 500 ML IV SCH (00:15)
[2016-11-21] MEDS ORDERED: GLUCOSE 10 TABS/TUBE PO PRN (00:15)
[2016-11-21] MEDS ORDERED: DEXTROSE 50% 50 ML SYR IV PRN (00:15)
[2016-11-21] MEDS: AZITHROMYCIN IV 500 MG in DEXTROSE 5% 250ML 250 ML IV SCH (01:09)
[2016-11-21] MEDS: ALBUT/IPRATROP 3MG/0.5MG NEB 3 ML VIAL INH SCH ×4 (02:16→20:41)
[2016-11-21] MEDS: PIPERACILL/TAZOBAC IV 3.375 GM in DEXTROSE 5% 100ML 100 ML IV SCH ×3 (05:03→22:19)
[2016-11-21] MEDS: SUCRALFATE 1 GM TAB PO SCH ×4 (05:48→21:17)
[2016-11-21] MEDS: LEVOTHYROXINE 75 MCG TAB PO SCH (05:49)
[2016-11-21] MEDS: HEPARIN SOD 5000 UNIT/0.5 ML CARP SQ SCH ×2 (05:50→14:16)
[2016-11-21] MEDS ORDERED: RIVAROXABAN 10 MG TAB PO SCH (08:00)
[2016-11-21] MEDS ORDERED: POTASSIUM CHLORIDE 20 MEQ TABCR PO SCH (08:00)
[2016-11-21] MEDS ORDERED: VANCOMYCIN INJ 1,000 MG in SODIUM CHLORIDE 0.9% 250ML 250 ML IV SCH (09:00)
[2016-11-21] MEDS ORDERED: GUAIFENESIN 600 MG TABCR PO SCH (09:00)
[2016-11-21] MEDS: ALLOPURINOL 100 MG TAB PO SCH (09:21)
[2016-11-21 09:22] LABS: HEMATOCRIT 36.5 % (37-47); MEAN CELL VOLUME 83.5 fL (80-100); MEAN CORPUSCULAR HEMOGLOBIN 27.9 pg (25-34); MEAN CORPUSCULAR HGB CONC 33.4 g/dl (32-36); MEAN PLATELET VOLUME 10.4 fL (7.4-10.4); PLATELET COUNT 334 K/uL (130-400); RED BLOOD COUNT 4.37 M/uL (4.2-5.4); WHITE BLOOD COUNT 28.47 K/uL (4.8-10.8)
[2016-11-21] MEDS: LORATADINE 10 MG TAB PO SCH (09:22)
[2016-11-21] MEDS: CLOPIDOGREL BISULFATE 75 MG TAB PO SCH (09:22)
[2016-11-21] MEDS: RANITIDINE HCL 150 MG TAB PO SCH ×2 (09:23→21:20)
[2016-11-21] MEDS: LACTOBACILLUS ACIDOPHILUS (FLORANEX) TAB PO SCH (09:23)
[2016-11-21] MEDS: FUROSEMIDE 80 MG TAB PO SCH ×2 (09:24→21:19)
[2016-11-21] MEDS: ALLOPURINOL 300 MG TAB PO SCH (09:25)
[2016-11-21] MEDS: FERROUS SULFATE 325 MG TAB PO SCH (09:25)
[2016-11-21] MEDS: CHECK SCOPOLAMINE PATCH PLACEMENT SCH ×2 (09:26→16:25)
[2016-11-21] MEDS: SERTRALINE HCL 50 MG TAB PO SCH (09:26)
[2016-11-21] MEDS: OXYBUTYNIN CHLORIDE 5 MG TAB PO SCH ×2 (09:26→21:21)
[2016-11-21] MEDS: PANTOprazole SOD 40 MG TAB PO SCH (09:26)
[2016-11-21] MEDS: METOPROLOL SUCC 25MG EXT REL TAB PO SCH ×3 (09:28→21:20)
[2016-11-21] MEDS: SCOPOLAMINE 1.5 MG TDSY TD SCH (09:28)
[2016-11-21] MEDS ORDERED: [UNRECOGNIZED DRUG - REMARK] PRN (09:30)
[2016-11-21] MEDS: GUAIFENESIN 600 MG TABCR PO SCH ×2 (09:31→21:20)
[2016-11-21] MEDS: MAGNESIUM OXIDE 400 MG TAB PO SCH ×2 (09:32→21:21)
[2016-11-21] MEDS: ARTIFICIAL TEARS OP SOLN OPB SCH ×8 (09:48→21:28)
[2016-11-21] MEDS: INSULIN ASPART 100 UNITS/ML 3 ML PEN SC SCH ×4 (09:48→21:18)
[2016-11-21 09:55] LABS: CALCIUM 9.6 mg/dl (8.5-10.1); CREATININE 1.2 mg/dl (0.60-1.20); MAGNESIUM 2.2 mg/dl (1.8-2.4); POTASSIUM 2.4 mmol/L (3.5-5.1)
[2016-11-21 10:19] LABS: ANISOCYTOSIS PRESENT; BASO % 0.2 %; BASO ABS # 0.05 K/uL (0-0.2); COMPLETE YES; IG% 1.3 %; LYMPH % 6.7 %; MONO % 3.8 %
[2016-11-21] MEDS: POTASSIUM CHLR 10 MEQ / WTR 10 MEQ in PREMIXED WATER 100 ML IV SCH ×4 (10:38→19:39)
--- NOTE | 2016-11-21 10:41 | Pharmacy Progress Note ---
Pharmacy Antibiotic Consult Date of Service: Nov 21, 2016. Pharmacy Dosing Scope Pharmacy is consulted to initiate vancomycin, zosyn, and azithromycin IV dosing therapy, order appropriate labs and adjust drug dose/frequency. Subjective The patient is a 76 year old female admitted on Nov 20, 2016 at 20:57. Objective Height (Feet): 5 Height (Inches): 0.00 Weight (Kilograms): 82.000 Lab Results (24hrs): Laboratory Tests Test 11/20/16 17:50 11/21/16 09:00 BUN/Creatinine Ratio 42.5 38.0 Blood Urea Nitrogen 51 mg/dl 46 mg/dl Creatinine 1.20 mg/dl 1.20 mg/dl White Blood Count 31.36 K/uL 28.47 K/uL Red Blood Count 4.34 M/uL 4.37 M/uL Hemoglobin 12.1 g/dL 12.2 g/dL Hematocrit 36.2 % 36.5 % Mean Corpuscular Volume 83.4 fL 83.5 fL Mean Corpuscular Hemoglobin 27.9 pg 27.9 pg Mean Corpuscular Hemoglobin Concent 33.4 g/dl 33.4 g/dl Platelet Count 352 K/uL 334 K/uL Mean Platelet Volume 10.1 fL 10.4 fL Neutrophils (%) (Auto) 93.2 % 88.0 % Lymphocytes (%) (Auto) 3.5 % 6.7 % Monocytes (%) (Auto) 2.1 % 3.8 % Eosinophils (%) (Auto) 0.0 % 0.0 % Basophils (%) (Auto) 0.1 % 0.2 % Neutrophils # (Auto) 29.22 K/uL 25.05 K/uL Lymphocytes # (Auto) 1.09 K/uL 1.90 K/uL Monocytes # (Auto) 0.66 K/uL 1.09 K/uL Eosinophils # (Auto) 0.00 K/uL 0.01 K/uL Basophils # (Auto) 0.03 K/uL 0.05 K/uL Assessment & Plan Patient started on vancomycin, zosyn and azithromycin for possible PNA/HCAP. Of note, patient recently hospitalized for management of diverticular abscess requiring drainage. CXR suggestive of possible pneumonia. CT of abdomen ordered which showed diverticulitis with repeated abscess (improvement noted from previous CT. BC x 2 are ordered Vancomycin: * LD: 2 gm iv x 1 (~24 mg/kg) given last evening * Will dose with 1250 mg (~15 mg/kg) iv q 24 hrs to achieve an estimated trough ~15-20 mcg/ml (goal for PNA/abscess infection); was less aggressive with dosing interval due to elevated BMI and risk of accumulation (BMI 35 kg/m2) * Estimated kinetics: t1/2~20 hrs, ke~0.036 hr-1, CrCl ~38 ml/min, Scr ~1.2 mg/ dL (appears baseline Scr closer to 1 mg/dL based upon prior admissions) * Plan to obtain a trough prior to the 2300 dose on 11/22 to ensure therapeutic; note this will not be steady state but want to ensure therapeutic Zosyn: * dosed 3.375 gm iv q 8 hrs which is appropriate for CrCl >20 ml/min (actual ~ 38 ml/min) Zithromax: * dosed 500 mg iv qd - which is appropriate for CrCl >10 ml/min Pharmacy will continue to follow and will adjust dose/frequency as necessary. Thank you
[2016-11-21] MEDS: ALBUTEROL 0.083% NEBU SOLN 3 ML VIAL INH PRN (12:13)
[2016-11-21 13:20] LABS: INFLUENZA A PCR Neg for Influ A (NEG); INFLUENZA B PCR Neg for Influ B (NEG)
[2016-11-21] MEDS: POTASSIUM CHLORIDE 20 MEQ TABCR PO SCH ×2 (14:16→21:22)
--- NOTE | 2016-11-21 18:12 | Progress Note ---
Subjective Date of Service: Nov 21, 2016. Subjective Pt evaluation today including: conversation w/ patient, physical exam, chart review, lab review, review of studies (CT chest, abd and pelvis), review of inpatient medication list Pain: denies abd pain PO Intake: fair at best Pt states she has had a cough "since " but it got much worse in the last 2-3 days. Had cold/hot chills at [facility] last few days as well but no fever. Placed on prednisone yesterday by the MD at the [facility] for wheezing. Multiple sick contacts with flu at the [facility] yesterday. Was at [facility] in [place] earlier this month for diverticular abscess and had drain placed for such by IR. Problem List Medical Problems: (1) Anticoagulant long-term use Status: Acute (2) Bilateral pneumonia Status: Acute (3) Bronchitis Status: Acute (4) Bronchitis Status: Acute (5) Cellulitis Status: Acute (6) Congestive heart failure Status: Acute (7) Dehydration Status: Acute (8) Failure of outpatient treatment Status: Acute (9) Failure to thrive Status: Acute (10) Fall Status: Acute (11) Fall Status: Acute (12) Generalized weakness Status: Acute (13) Generalized weakness Status: Acute (14) H. pylori infection Status: Acute (15) Hypoxia Status: Acute (16) Intractable nausea and vomiting Status: Acute (17) Intractable vomiting Status: Acute (18) Leukocytosis Status: Acute (19) Renal insufficiency Status: Acute (20) Supratherapeutic INR Status: Acute (21) Theophylline toxicity Status: Acute (22) Urinary tract infection Status: Acute (23) UTI (urinary tract infection) Status: Acute (24) Vomiting and diarrhea Status: Acute (25) Weakness Status: Acute (26) Weakness Status: Acute (27) Weakness Status: Acute Review of Systems Constitutional: + chills Respiratory: + cough, + dyspnea on exertion, No shortness of breath Cardiac: No chest pain Abdomen: No pain Objective Vital Signs Date Time Temp Pulse Resp B/P Pulse Ox O2 Delivery O2 Flow Rate FiO2 11/21/16 16:00 Room Air 11/21/16 15:06 36.7 99 18 102/68 96 Room Air 11/21/16 14:43 80 20 95 Room Air 11/21/16 12:13 98 20 96 Room Air 11/21/16 08:00 94 Room Air 11/21/16 07:47 84 20 94 Room Air 11/21/16 07:23 36.6 86 18 100/65 90 Room Air 11/21/16 02:17 93 20 95 Room Air 11/21/16 00:05 36.5 80 20 106/68 Room Air 11/20/16 23:40 36.5 80 20 106/68 95 Room Air 11/20/16 22:35 36.5 83 18 96/57 95 Room Air 11/20/16 20:56 88 20 108/76 95 Room Air 11/20/16 19:46 82 11/20/16 18:51 82 18 105/74 97 Room Air Physical Exam General Appearance: no apparent distress, + obese, + pertinent finding ( coughing) ENT: pharynx normal Neck: no JVD Respiratory/Chest: no respiratory distress, no accessory muscle use, + crackles (both bases), + wheezing Cardiovascular: no gallop, + systolic murmur (11/20 LSB), + irregularly irregular Abdomen: normal bowel sounds, non tender, soft, no organomegaly, + pertinent finding (LLQ - former drain site with packing tape in place, scant redness, no odor) Extremities: no pedal edema Neurologic/Psychiatric: alert, oriented x 3 Laboratory Results Last 24 Hours Test 11/20/16 19:45 11/20/16 19:46 11/21/16 09:00 11/21/16 10:47 Urine Color YELLOW Urine Appearance CLEAR Urine pH 7.5 Urine Specific [place] 1.015 Urine Protein NEG Urine Glucose (UA) NEG Urine Ketones NEG Urine Occult Blood NEG Urine Nitrite NEG Urine Bilirubin NEG Urine Urobilinogen NEG Urine Leukocyte Esterase NEG Urine WBC (Auto) 0 /hpf Urine RBC (Auto) 0-4 /hpf Urine Hyaline Casts (Auto) 1-5 /lpf Urine Epithelial Cells (Auto) 0-5 /lpf Urine Bacteria (Auto) NEG Venous Blood pH 7.43 Venous Blood Partial Pressure CO2 46 mmHg Venous Blood Partial Pressure O2 28 mmHg Venous Blood HCO3 29 mmol/L Venous Blood Oxygen Saturation < 60.0 % Venous Blood Base Excess 4.2 mmol/L White Blood Count 28.47 K/uL Red Blood Count 4.37 M/uL Hemoglobin 12.2 g/dL Hematocrit 36.5 % Mean Corpuscular Volume 83.5 fL Mean Corpuscular Hemoglobin 27.9 pg Mean Corpuscular Hemoglobin Concent 33.4 g/dl Platelet Count 334 K/uL Mean Platelet Volume 10.4 fL Neutrophils (%) (Auto) 88.0 % Lymphocytes (%) (Auto) 6.7 % Monocytes (%) (Auto) 3.8 % Eosinophils (%) (Auto) 0.0 % Basophils (%) (Auto) 0.2 % Neutrophils # (Auto) 25.05 K/uL Lymphocytes # (Auto) 1.90 K/uL Monocytes # (Auto) 1.09 K/uL Eosinophils # (Auto) 0.01 K/uL Basophils # (Auto) 0.05 K/uL RDW Standard Deviation 47.8 fL RDW Coefficient of Variation 15.7 % Immature Granulocyte % (Auto) 1.3 % Immature Granulocyte # (Auto) 0.37 K/uL Anisocytosis PRESENT Sodium Level 135 mmol/L Potassium Level 2.4 mmol/L Chloride Level 95 mmol/L Carbon Dioxide Level 29 mmol/L Anion Gap 11.0 mmol/L Blood Urea Nitrogen 46 mg/dl Creatinine 1.20 mg/dl Est Creatinine Clear Calc Drug Dose 38.4 ml/min Estimated GFR () 51.2 Estimated GFR (Non- 44.2 BUN/Creatinine Ratio 38.0 Random Glucose 131 mg/dl Calcium Level 9.6 mg/dl Magnesium Level 2.2 mg/dl Influenza Type A (RT-PCR) Neg for Influ A Influenza Type B (RT-PCR) Neg for Influ B Test 11/21/16 11:25 11/21/16 16:27 Bedside Glucose 210 mg/dl 265 mg/dl Assessment and Plan 76yo female: 1. b/l pneumonia - at risk for gram negative etiology. No h/o dysphagia thus aspiration unlikely. Check MRSA swab. If negative consider d/c of vanco. Cont zosyn/zithromax. Check flu PCR since there has been flu outbreak at [facility]. 2. recent diverticulitis with diverticular abscess - s/p IR drainage at [facility]. Drain has been removed. Provide local wound care to previous drain site. 3. chronic diastolic CHF - compensated vs mildly volume contracted; holding lasix today. 4. T2DM - uncontrolled 2nd to steroids & stress. add lantus. 5. hypokalemia - replace IV + PO. Repeat BMP am. 6. a. fib on chronic anticoagulation - rates controlled. 7. pacemaker status - noted. 8. DVT proph - xarelto; stop the heparin SC. 9. chronic leukocytosis - has seen heme/onc in the past for this and had w/u. Follow. 10. COPD with exacerbation - continue steroids, nebs, supportive care. PT, OT consults Continued [facility] stay due to: multiple IV medications needed Discharge planning: assisted facility
[2016-11-21] MEDS: INSULIN GLARGINE SOLOSTAR 100 UNITS/ML 3 ML PEN SC SCH (21:19)
[2016-11-21] MEDS: PRAVASTATIN SOD 40 MG TAB PO SCH (21:23)
[2016-11-21] MEDS ORDERED: VANCOMYCIN INJ 1,250 MG in SODIUM CHLORIDE 0.9% 250ML 250 ML IV SCH (23:00)
[2016-11-22] VITALS (10 sets, daily range): BP systolic 95–131; BP diastolic 54–71; PULSE 76–142; TEMP 36.6–36.9; O2SAT 92–97
[2016-11-22] MEDS: CHECK SCOPOLAMINE PATCH PLACEMENT SCH ×3 (00:27→17:20)
[2016-11-22] MEDS: ALBUT/IPRATROP 3MG/0.5MG NEB 3 ML VIAL INH SCH ×3 (01:42→14:23)
[2016-11-22] MEDS: AZITHROMYCIN IV 500 MG in DEXTROSE 5% 250ML 250 ML IV SCH (02:00)
[2016-11-22] MEDS: ONDANSETRON INJ 2 MG/ML 2 ML VIAL IV PRN (03:35)
[2016-11-22] MEDS: PIPERACILL/TAZOBAC IV 3.375 GM in DEXTROSE 5% 100ML 100 ML IV SCH ×3 (04:22→20:28)
[2016-11-22] MEDS: SUCRALFATE 1 GM TAB PO SCH ×4 (06:27→21:27)
[2016-11-22] MEDS: LEVOTHYROXINE 75 MCG TAB PO SCH (06:27)
[2016-11-22 07:00] LABS: BUN/CREATININE RATIO 40.2 (10-20); CALCIUM 9.1 mg/dl (8.5-10.1); CREATININE 1.2 mg/dl (0.60-1.20); POTASSIUM 3.4 mmol/L (3.5-5.1)
[2016-11-22 07:26] LABS: BASO % 0.1 %; BASO ABS # 0.02 K/uL (0-0.2); COMPLETE YES; HEMATOCRIT 29.7 % (37-47); IG% 1.5 %; LYMPH % 9.2 %; LYMPH ABS # 1.63 K/uL (1.2-3.4); MEAN CELL VOLUME 82.5 fL (80-100); MEAN CORPUSCULAR HEMOGLOBIN 26.9 pg (25-34); MEAN CORPUSCULAR HGB CONC 32.7 g/dl (32-36); MEAN PLATELET VOLUME 9.7 fL (7.4-10.4); MONO % 4.4 %; NEUT % 84.8 %; PLATELET COUNT 277 K/uL (130-400); WHITE BLOOD COUNT 17.81 K/uL (4.8-10.8)
[2016-11-22] MEDS: BENZONATATE 100MG CAP PO SCH ×4 (09:15→20:20)
[2016-11-22] MEDS: GUAIFENESIN 600 MG TABCR PO SCH ×2 (09:22→21:27)
[2016-11-22] MEDS: LACTOBACILLUS ACIDOPHILUS (FLORANEX) TAB PO SCH (09:23)
[2016-11-22] MEDS: LORATADINE 10 MG TAB PO SCH (09:23)
[2016-11-22] MEDS: PANTOprazole SOD 40 MG TAB PO SCH (09:24)
[2016-11-22] MEDS: MAGNESIUM OXIDE 400 MG TAB PO SCH ×2 (09:24→20:19)
[2016-11-22] MEDS: ALLOPURINOL 300 MG TAB PO SCH (09:25)
[2016-11-22] MEDS: ALLOPURINOL 100 MG TAB PO SCH (09:25)
[2016-11-22] MEDS: FERROUS SULFATE 325 MG TAB PO SCH (09:25)
[2016-11-22] MEDS: CLOPIDOGREL BISULFATE 75 MG TAB PO SCH (09:25)
[2016-11-22] MEDS: POTASSIUM CHLORIDE 20 MEQ TABCR PO SCH ×3 (09:25→20:20)
[2016-11-22] MEDS: ARTIFICIAL TEARS OP SOLN OPB SCH ×8 (09:26→20:28)
[2016-11-22] MEDS: OXYBUTYNIN CHLORIDE 5 MG TAB PO SCH ×2 (09:26→20:20)
[2016-11-22] MEDS: RANITIDINE HCL 150 MG TAB PO SCH ×2 (09:26→20:20)
[2016-11-22] MEDS: SERTRALINE HCL 50 MG TAB PO SCH (09:26)
[2016-11-22] MEDS: BUDESONIDE/FORMOTEROL FUMARATE 160/4.5 60 PUFFS/INHALER INH SCH ×2 (09:27→20:19)
[2016-11-22] MEDS: FUROSEMIDE 80 MG TAB PO SCH ×2 (09:28→20:20)
[2016-11-22] MEDS: METOPROLOL SUCC 25MG EXT REL TAB PO SCH ×3 (09:29→20:20)
[2016-11-22] MEDS: INSULIN ASPART 100 UNITS/ML 3 ML PEN SC SCH ×4 (09:31→21:35)
[2016-11-22] MEDS: ALBUTEROL 0.083% NEBU SOLN 3 ML VIAL INH PRN (09:55)
[2016-11-22] MEDS ORDERED: NURSING VERBAL MED ORDER ONE (11:45)
[2016-11-22 14:28] LABS: HEMATOCRIT 30.8 % (37-47)
--- NOTE | 2016-11-22 14:41 | Progress Note ---
Subjective Date of Service: Nov 22, 2016. Subjective Pt evaluation today including: conversation w/ patient, physical exam, chart review, lab review Pain: denies PO Intake: improved today c/o coughing fits - mainly nonproductive; but denies sob at rest overall feels a little better today denies chest pain denies abd pain Problem List Medical Problems: (1) Anticoagulant long-term use Status: Acute (2) Bilateral pneumonia Status: Acute (3) Bronchitis Status: Acute (4) Bronchitis Status: Acute (5) Cellulitis Status: Acute (6) Congestive heart failure Status: Acute (7) Dehydration Status: Acute (8) Failure of outpatient treatment Status: Acute (9) Failure to thrive Status: Acute (10) Fall Status: Acute (11) Fall Status: Acute (12) Generalized weakness Status: Acute (13) Generalized weakness Status: Acute (14) H. pylori infection Status: Acute (15) Hypoxia Status: Acute (16) Intractable nausea and vomiting Status: Acute (17) Intractable vomiting Status: Acute (18) Leukocytosis Status: Acute (19) Renal insufficiency Status: Acute (20) Supratherapeutic INR Status: Acute (21) Theophylline toxicity Status: Acute (22) Urinary tract infection Status: Acute (23) UTI (urinary tract infection) Status: Acute (24) Vomiting and diarrhea Status: Acute (25) Weakness Status: Acute (26) Weakness Status: Acute (27) Weakness Status: Acute Review of Systems Constitutional: No chills, No fever Respiratory: No dyspnea at rest, No hemoptysis Cardiac: No chest pain, No edema, No orthopnea Abdomen: No pain Objective Vital Signs Date Time Temp Pulse Resp B/P Pulse Ox O2 Delivery O2 Flow Rate FiO2 11/22/16 14:23 99 20 95 Room Air 11/22/16 09:55 82 20 96 Room Air 11/22/16 09:40 142 131/58 11/22/16 08:00 Room Air 11/22/16 07:07 82 20 95 Room Air 11/22/16 07:04 36.6 91 20 95/54 92 Room Air 11/22/16 01:42 88 20 95 Room Air 11/22/16 00:07 36.9 76 18 111/71 97 Room Air 11/22/16 00:00 95 Room Air 11/21/16 21:34 76 126/84 11/21/16 19:25 80 20 95 Room Air 11/21/16 16:00 Room Air 11/21/16 15:06 36.7 99 18 102/68 96 Room Air 11/21/16 14:43 80 20 95 Room Air Physical Exam General Appearance: no apparent distress, + obese ENT: pharynx normal Neck: no JVD Respiratory/Chest: + rales (fine, bases), + wheezing (end-exp -- mild) Cardiovascular: no murmur, + tachycardia (borderline), + irregularly irregular Abdomen: normal bowel sounds, non tender, soft, no organomegaly Extremities: no pedal edema Neurologic/Psychiatric: alert, oriented x 3 Skin: + pertinent finding (former drain site from diverticular abscess with mild yellow exudate but no diana purulent material or surrounding cellulitis ) Laboratory Results Last 24 Hours Test 11/21/16 16:27 11/21/16 20:00 11/22/16 05:42 11/22/16 07:33 Bedside Glucose 265 mg/dl 297 mg/dl 160 mg/dl White Blood Count 17.81 K/uL Red Blood Count 3.60 M/uL Hemoglobin 9.7 g/dL Hematocrit 29.7 % Mean Corpuscular Volume 82.5 fL Mean Corpuscular Hemoglobin 26.9 pg Mean Corpuscular Hemoglobin Concent 32.7 g/dl Platelet Count 277 K/uL Mean Platelet Volume 9.7 fL Neutrophils (%) (Auto) 84.8 % Lymphocytes (%) (Auto) 9.2 % Monocytes (%) (Auto) 4.4 % Eosinophils (%) (Auto) 0.0 % Basophils (%) (Auto) 0.1 % Neutrophils # (Auto) 15.12 K/uL Lymphocytes # (Auto) 1.63 K/uL Monocytes # (Auto) 0.78 K/uL Eosinophils # (Auto) 0.00 K/uL Basophils # (Auto) 0.02 K/uL RDW Standard Deviation 47.6 fL RDW Coefficient of Variation 15.8 % Immature Granulocyte % (Auto) 1.5 % Immature Granulocyte # (Auto) 0.26 K/uL Sodium Level 134 mmol/L Potassium Level 3.4 mmol/L Chloride Level 100 mmol/L Carbon Dioxide Level 25 mmol/L Anion Gap 9.0 mmol/L Blood Urea Nitrogen 48 mg/dl Creatinine 1.20 mg/dl Est Creatinine Clear Calc Drug Dose 38.4 ml/min Estimated GFR () 51.2 Estimated GFR (Non- 44.2 BUN/Creatinine Ratio 40.2 Random Glucose 153 mg/dl Calcium Level 9.1 mg/dl Test 11/22/16 11:40 11/22/16 14:08 Bedside Glucose 207 mg/dl Hemoglobin 10.3 g/dL Hematocrit 30.8 % Assessment and Plan 76yo female: 1. b/l pneumonia - at risk for gram negative etiology. MRSA swab is also positive. No h/o dysphagia thus aspiration unlikely. Cont zosyn/zithromax/vanco (latter since MRSA +). Rapid flu and flu PCR both negative. Day #2 of IV abx today. 2. recent diverticulitis with diverticular abscess - s/p IR drainage at [facility] earlier in October. Recent CT abd/pelvis with nearly resolved abscess cavity. Drain has been removed. Provide local wound care to previous drain site. 3. chronic diastolic CHF - compensated vs mildly volume contracted. Resume lasix tomorrow on 11/23/16. 4. T2DM - uncontrolled 2nd to steroids & stress. Improved with lantus. No changes today. 5. hypokalemia - nearly normal today. Continue K supplementation. 6. a. fib on chronic anticoagulation - rates controlled with occasionally high rates. Cont xarelto. Change albuterol to xopenex to see if this helps. 7. pacemaker status - noted. 8. DVT proph - xarelto. 9. chronic leukocytosis - has seen heme/onc in the past for this and had w/u. Improved today. 10. COPD with exacerbation - continue steroids as is (prednisone 40mg daily), nebs, supportive care. 11. anemia - fairly significant drop overnight. Unclear if this was from fluids and/or phlebotomy. Repeat later this afternoon for stability. PT, OT consults dispo - Lillian Tran when medically ready Continued [facility] stay due to: multiple IV medications needed Discharge planning: retirement facility
[2016-11-22] MEDS ORDERED: LEVALBUTEROL/IPRATROPIUM NEB INH SCH (15:00)
[2016-11-22] MEDS: RIVAROXABAN TAB 15 MG TAB PO SCH (18:25)
[2016-11-22 18:40] LABS: URINE APPEARANCE CLEAR (CLEAR); URINE BILIRUBIN NEG (NEG); URINE COLOR YELLOW; URINE NITRITE NEG (NEG); URINE SPECIFIC GRAVITY 1.012 (1.000-1.030); UROBILINOGEN NEG (NEG)
[2016-11-22 18:43] LABS: MANUAL MICROSCOPIC REQUIRED? NO; REVIEW REQ? NO
[2016-11-22] MEDS: LEVALBUTEROL 1.25MG/0.5ML NEB INH SCH (20:36)
[2016-11-22] MEDS: IPRATROPIUM BROMIDE NEB SOLN 0.02% 2.5 ML VIAL INH SCH (20:36)
[2016-11-22] MEDS: PRAVASTATIN SOD 40 MG TAB PO SCH (21:27)
[2016-11-22] MEDS: INSULIN GLARGINE SOLOSTAR 100 UNITS/ML 3 ML PEN SC SCH (21:34)
[2016-11-22] MEDS ORDERED: VANCOMYCIN TROUGH ONE (22:30)
[2016-11-23] VITALS (7 sets, daily range): BP systolic 119–136; BP diastolic 66–89; PULSE 88–105; TEMP 36.6–36.8; O2SAT 94–98
[2016-11-23] MEDS: ONDANSETRON INJ 2 MG/ML 2 ML VIAL IV PRN ×3 (00:04→10:20)
[2016-11-23] MEDS: IPRATROPIUM BROMIDE NEB SOLN 0.02% 2.5 ML VIAL INH SCH ×4 (01:55→19:45)
[2016-11-23] MEDS: LEVALBUTEROL 1.25MG/0.5ML NEB INH SCH ×4 (01:55→19:45)
[2016-11-23] MEDS: VANCOMYCIN INJ 1,250 MG in SODIUM CHLORIDE 0.9% 250ML 250 ML IV SCH (03:50)
[2016-11-23] MEDS: AZITHROMYCIN IV 500 MG in DEXTROSE 5% 250ML 250 ML IV SCH (03:53)
[2016-11-23] MEDS: LEVOTHYROXINE 75 MCG TAB PO SCH (06:06)
[2016-11-23] MEDS: PIPERACILL/TAZOBAC IV 3.375 GM in DEXTROSE 5% 100ML 100 ML IV SCH ×2 (06:08→11:54)
[2016-11-23 07:19] LABS: HEMATOCRIT 30.3 % (37-47); MEAN CELL VOLUME 84.6 fL (80-100); MEAN CORPUSCULAR HEMOGLOBIN 27.9 pg (25-34); MEAN PLATELET VOLUME 10.1 fL (7.4-10.4); PLATELET COUNT 290 K/uL (130-400); RED BLOOD COUNT 3.58 M/uL (4.2-5.4); WHITE BLOOD COUNT 17.17 K/uL (4.8-10.8)
[2016-11-23 07:21] LABS: BUN/CREATININE RATIO 35.5 (10-20); CREATININE 1.1 mg/dl (0.60-1.20); POTASSIUM 4.2 mmol/L (3.5-5.1)
[2016-11-23] MEDS: LACTOBACILLUS ACIDOPHILUS (FLORANEX) TAB PO SCH (09:31)
[2016-11-23] MEDS: LORATADINE 10 MG TAB PO SCH (09:31)
[2016-11-23] MEDS: GUAIFENESIN 600 MG TABCR PO SCH ×2 (09:31→21:22)
[2016-11-23] MEDS: RANITIDINE HCL 150 MG TAB PO SCH ×2 (09:32→21:23)
[2016-11-23] MEDS: OXYBUTYNIN CHLORIDE 5 MG TAB PO SCH ×2 (09:32→21:24)
[2016-11-23] MEDS: METOPROLOL SUCC 25MG EXT REL TAB PO SCH ×2 (09:32→21:23)
[2016-11-23] MEDS: POTASSIUM CHLORIDE 20 MEQ TABCR PO SCH ×3 (09:33→21:23)
[2016-11-23] MEDS: PANTOprazole SOD 40 MG TAB PO SCH (09:35)
[2016-11-23] MEDS: MAGNESIUM OXIDE 400 MG TAB PO SCH ×2 (09:35→21:24)
[2016-11-23] MEDS: BENZONATATE 100MG CAP PO SCH ×3 (09:35→21:23)
[2016-11-23] MEDS: FUROSEMIDE 80 MG TAB PO SCH ×2 (09:51→21:24)
[2016-11-23] MEDS: SUCRALFATE 1 GM TAB PO SCH ×4 (09:51→21:22)
[2016-11-23] MEDS: BUDESONIDE/FORMOTEROL FUMARATE 160/4.5 60 PUFFS/INHALER INH SCH ×2 (09:51→21:02)
[2016-11-23] MEDS: ARTIFICIAL TEARS OP SOLN OPB SCH ×8 (09:52→21:03)
[2016-11-23] MEDS: CHECK SCOPOLAMINE PATCH PLACEMENT SCH ×3 (09:52→16:55)
[2016-11-23] MEDS: CLOPIDOGREL BISULFATE 75 MG TAB PO SCH (09:52)
[2016-11-23] MEDS: FERROUS SULFATE 325 MG TAB PO SCH (09:52)
[2016-11-23] MEDS: ALLOPURINOL 300 MG TAB PO SCH (09:52)
[2016-11-23] MEDS: ALLOPURINOL 100 MG TAB PO SCH (09:53)
[2016-11-23] MEDS: SERTRALINE HCL 50 MG TAB PO SCH (09:55)
[2016-11-23] MEDS: INSULIN ASPART 100 UNITS/ML 3 ML PEN SC SCH ×4 (09:58→21:58)
[2016-11-23] MEDS: MICONAZOLE NITRATE POWDER 43 GM EXT PRN ×2 (11:47→21:17)
--- NOTE | 2016-11-23 16:19 | Progress Note ---
Subjective Date of Service: Nov 23, 2016. Subjective pt still with fairly intense abdominal pain worsened with movement, significant amount of diverticulitis seen on CT, overall is stable except for pain with movement Problem List Medical Problems: (1) Anticoagulant long-term use Status: Acute (2) Bilateral pneumonia Status: Acute (3) Bronchitis Status: Acute (4) Bronchitis Status: Acute (5) Cellulitis Status: Acute (6) Congestive heart failure Status: Acute (7) Dehydration Status: Acute (8) Failure of outpatient treatment Status: Acute (9) Failure to thrive Status: Acute (10) Fall Status: Acute (11) Fall Status: Acute (12) Generalized weakness Status: Acute (13) Generalized weakness Status: Acute (14) H. pylori infection Status: Acute (15) Hypoxia Status: Acute (16) Intractable nausea and vomiting Status: Acute (17) Intractable vomiting Status: Acute (18) Leukocytosis Status: Acute (19) Renal insufficiency Status: Acute (20) Supratherapeutic INR Status: Acute (21) Theophylline toxicity Status: Acute (22) Urinary tract infection Status: Acute (23) UTI (urinary tract infection) Status: Acute (24) Vomiting and diarrhea Status: Acute (25) Weakness Status: Acute (26) Weakness Status: Acute (27) Weakness Status: Acute Review of Systems Constitutional: + weakness, No chills, No fever Respiratory: No cough, No shortness of breath Cardiac: No chest pain, No edema Abdomen: + pain, No diarrhea, No nausea, No vomiting Female : No dysuria, No urinary frequency Neurologic: No memory loss, No paralysis Psychiatric: No anhedonism, No depression symptoms Objective Vital Signs Date Time Temp Pulse Resp B/P Pulse Ox O2 Delivery O2 Flow Rate FiO2 11/23/16 07:50 98 16 98 Room Air 11/23/16 07:32 36.8 101 20 119/75 96 Room Air 11/23/16 01:55 105 18 97 Room Air 11/23/16 00:21 36.6 104 22 136/89 98 Room Air 11/22/16 20:00 Room Air 11/22/16 19:35 99 24 95 Room Air 11/22/16 16:00 Room Air 11/22/16 15:05 36.7 111 16 98/59 96 Room Air 11/22/16 14:23 99 20 95 Room Air 11/22/16 09:55 82 20 96 Room Air 11/22/16 09:40 142 131/58 Physical Exam General Appearance: + mild distress, + obese Neck: supple, no JVD Respiratory/Chest: chest non-tender, lungs clear, normal breath sounds Cardiovascular: regular rate, rhythm, no murmur Abdomen: normal bowel sounds, soft, + guarding, + tenderness Extremities: no pedal edema, no calf tenderness Neurologic/Psychiatric: alert, oriented x 3 Laboratory Results Last 24 Hours Test 11/22/16 11:40 11/22/16 14:08 11/22/16 18:20 11/23/16 06:31 Bedside Glucose 207 mg/dl Hemoglobin 10.3 g/dL 10.0 g/dL Hematocrit 30.8 % 30.3 % Urine Color YELLOW Urine Appearance CLEAR Urine pH 7.0 Urine Specific [place] 1.012 Urine Protein NEG Urine Glucose (UA) NEG Urine Ketones NEG Urine Occult Blood NEG Urine Nitrite NEG Urine Bilirubin NEG Urine Urobilinogen NEG Urine Leukocyte Esterase NEG White Blood Count 17.17 K/uL Red Blood Count 3.58 M/uL Mean Corpuscular Volume 84.6 fL Mean Corpuscular Hemoglobin 27.9 pg Mean Corpuscular Hemoglobin Concent 33.0 g/dl RDW Standard Deviation 49.0 fL RDW Coefficient of Variation 16.0 % Platelet Count 290 K/uL Mean Platelet Volume 10.1 fL Sodium Level 138 mmol/L Potassium Level 4.2 mmol/L Chloride Level 104 mmol/L Carbon Dioxide Level 24 mmol/L Anion Gap 10.0 mmol/L Blood Urea Nitrogen 39 mg/dl Creatinine 1.10 mg/dl Est Creatinine Clear Calc Drug Dose 41.9 ml/min Estimated GFR () 56.9 Estimated GFR (Non- 49.1 BUN/Creatinine Ratio 35.5 Random Glucose 207 mg/dl Calcium Level 9.0 mg/dl Assessment and Plan 76yo female: Acute on Chronic respiratory failure, COPD with exacerbation - continue steroids as is (prednisone 40mg daily), nebs, supportive care. b/l pneumonia - at risk for gram negative etiology. MRSA swab is also positive. zosyn/zithromax/vanco (latter since MRSA +). Rapid flu and flu PCR both negative. Recent diverticulitis with diverticular abscess - s/p IR drainage at [facility] earlier in October. Recent CT abd/pelvis with nearly resolved abscess cavity but significant inflammation is persistent pain will have Surgical opinion. Provide local wound care to previous drain site. Chronic diastolic CHF - compensated resume lasix 11/23/16. T2DM - uncontrolled 2nd to steroids & stress. lantus plus SSI. A. fib on chronic anticoagulation - Cont xarelto. DVT proph - xarelto. Chronic leukocytosis - has seen heme/onc in the past for this and had w/u. Lillian Tran when medically ready Continued [facility] stay due to: multiple IV medications needed Discharge planning: fdc facility
[2016-11-23] MEDS: RIVAROXABAN TAB 15 MG TAB PO SCH (17:37)
[2016-11-23] MEDS: PRAVASTATIN SOD 40 MG TAB PO SCH (21:22)
[2016-11-23] MEDS: PIPERACILL/TAZOBAC IV 4.5 GM in DEXTROSE 5% 100ML 100 ML IV SCH (21:42)
[2016-11-23] MEDS: INSULIN GLARGINE SOLOSTAR 100 UNITS/ML 3 ML PEN SC SCH (21:56)
[2016-11-24] MEDS: CHECK SCOPOLAMINE PATCH PLACEMENT SCH ×3 (00:21→16:12)
[2016-11-24 00:31] VITALS: BP 117/76; PULSE 85; TEMP 36.7; O2SAT 98
[2016-11-24] MEDS ORDERED: VANCOMYCIN TROUGH ONE (01:30)
[2016-11-24 02:25] VITALS: PULSE 87; O2SAT 95
[2016-11-24] MEDS: IPRATROPIUM BROMIDE NEB SOLN 0.02% 2.5 ML VIAL INH SCH ×3 (02:25→14:31)
[2016-11-24] MEDS: LEVALBUTEROL 1.25MG/0.5ML NEB INH SCH ×3 (02:25→14:31)
[2016-11-24] MEDS: VANCOMYCIN INJ 1,250 MG in SODIUM CHLORIDE 0.9% 250ML 250 ML IV SCH (02:28)
[2016-11-24] MEDS: AZITHROMYCIN IV 500 MG in DEXTROSE 5% 250ML 250 ML IV SCH (02:28)
[2016-11-24] MEDS ORDERED: COUGH DROP (SUGAR FREE) LOZ 24 LOZ/1 BOX ONE (02:45)
[2016-11-24] MEDS: PIPERACILL/TAZOBAC IV 4.5 GM in DEXTROSE 5% 100ML 100 ML IV SCH ×2 (04:49→11:32)
[2016-11-24] MEDS: SUCRALFATE 1 GM TAB PO SCH ×3 (06:08→16:11)
[2016-11-24] MEDS: LEVOTHYROXINE 75 MCG TAB PO SCH (06:08)
[2016-11-24 07:48] LABS: HEMATOCRIT 32.4 % (37-47); MEAN CELL VOLUME 85.3 fL (80-100); MEAN CORPUSCULAR HEMOGLOBIN 27.6 pg (25-34); MEAN CORPUSCULAR HGB CONC 32.4 g/dl (32-36); MEAN PLATELET VOLUME 10.2 fL (7.4-10.4); PLATELET COUNT 298 K/uL (130-400); WHITE BLOOD COUNT 18.26 K/uL (4.8-10.8)
[2016-11-24 08:03] VITALS: BP 104/71; PULSE 97; TEMP 36.5; O2SAT 96
[2016-11-24 08:16] LABS: CREATININE 0.97 mg/dl (0.60-1.20)
[2016-11-24] MEDS: SERTRALINE HCL 50 MG TAB PO SCH (09:11)
[2016-11-24] MEDS: ALLOPURINOL 100 MG TAB PO SCH (09:11)
[2016-11-24] MEDS: RANITIDINE HCL 150 MG TAB PO SCH (09:11)
[2016-11-24] MEDS: FUROSEMIDE 80 MG TAB PO SCH (09:12)
[2016-11-24] MEDS: FERROUS SULFATE 325 MG TAB PO SCH (09:12)
[2016-11-24] MEDS: GUAIFENESIN 600 MG TABCR PO SCH (09:12)
[2016-11-24] MEDS: ALLOPURINOL 300 MG TAB PO SCH (09:12)
[2016-11-24] MEDS: CLOPIDOGREL BISULFATE 75 MG TAB PO SCH (09:13)
[2016-11-24] MEDS: LORATADINE 10 MG TAB PO SCH (09:13)
[2016-11-24] MEDS: LACTOBACILLUS ACIDOPHILUS (FLORANEX) TAB PO SCH (09:13)
[2016-11-24] MEDS: PANTOprazole SOD 40 MG TAB PO SCH (09:14)
[2016-11-24] MEDS: MAGNESIUM OXIDE 400 MG TAB PO SCH (09:14)
[2016-11-24] MEDS: POTASSIUM CHLORIDE 20 MEQ TABCR PO SCH ×2 (09:14→13:20)
[2016-11-24] MEDS: OXYBUTYNIN CHLORIDE 5 MG TAB PO SCH (09:15)
[2016-11-24] MEDS: ARTIFICIAL TEARS OP SOLN OPB SCH ×6 (09:15→17:00)
[2016-11-24] MEDS: BUDESONIDE/FORMOTEROL FUMARATE 160/4.5 60 PUFFS/INHALER INH SCH (09:15)
[2016-11-24] MEDS: METOPROLOL SUCC 25MG EXT REL TAB PO SCH (09:15)
[2016-11-24] MEDS: BENZONATATE 100MG CAP PO SCH ×2 (09:16→13:20)
[2016-11-24] MEDS: SCOPOLAMINE 1.5 MG TDSY TD SCH (09:18)
[2016-11-24] MEDS: INSULIN ASPART 100 UNITS/ML 3 ML PEN SC SCH ×3 (09:26→18:10)
--- NOTE | 2016-11-24 11:07 | Medical Consult ---
Consultation Date of Consultation: Nov 24, 2016. Attending Physician: Juan Jose Michael M.D. History of Present Illness 76 y/o female admitted 4 days ago from [facility] for cough, pneumonia. She was [facility] recovering from recent diverticulitis and IR drainage of 3 cm abscess at [facility]. She was transferred from [facility] to [facility] on Oct 18, 2016. Drain was removed last week in [place]. We were asked to see her for continuing abdominal pain, mostly when she is rolling or being moved. She is tolerating diet and bowels moved this morning. Most recent colonoscopy was 2011, she had a follow-up deferred a few years ago just prior to open heart surgery. Past Medical/Surgical History Medical Problems: (1) Anticoagulant long-term use Status: Acute (2) Bilateral pneumonia Status: Acute (3) Bronchitis Status: Acute (4) Bronchitis Status: Acute (5) Cellulitis Status: Acute (6) Congestive heart failure Status: Acute (7) Dehydration Status: Acute (8) Failure of outpatient treatment Status: Acute (9) Failure to thrive Status: Acute (10) Fall Status: Acute (11) Fall Status: Acute (12) Generalized weakness Status: Acute (13) Generalized weakness Status: Acute (14) H. pylori infection Status: Acute (15) Hypoxia Status: Acute (16) Intractable nausea and vomiting Status: Acute (17) Intractable vomiting Status: Acute (18) Leukocytosis Status: Acute (19) Renal insufficiency Status: Acute (20) Supratherapeutic INR Status: Acute (21) Theophylline toxicity Status: Acute (22) Urinary tract infection Status: Acute (23) UTI (urinary tract infection) Status: Acute (24) Vomiting and diarrhea Status: Acute (25) Weakness Status: Acute (26) Weakness Status: Acute (27) Weakness Status: Acute Family History Cancer Diabetes mellitus Heart disease Hypertension Social History Smoking Status: Never Smoker Drug Use: none Marital Status: Housing Status: lives alone Occupation Status: retired Allergies Coded Allergies: Atorvastatin (Verified Allergy, Severe, SWELLING, 08/13/16) Sulfa Antibiotics (Verified Allergy, Severe, MOUTH AND TOUNGE SWELL, ) Angiotensin Receptor Blockers (Verified Allergy, Unknown, Unknown, 11/20/16) Losartan (Verified Allergy, Unknown, swelling/reflux, 08/13/16) Morphine and Related (Verified Allergy, Unknown, Unknown, 11/20/16) Quinolones (Verified Allergy, Unknown, Unknown, 11/20/16) Statins (Verified Allergy, Unknown, Unknown, 11/20/16) Sulfonylureas (Verified Allergy, Unknown, Unknown, 11/20/16) Glipizide (Verified Adverse Reaction, Intermediate, NAUSEA, 08/13/16) Metformin (Verified Adverse Reaction, Intermediate, vomiting, 08/13/16) Nitrofurantoin (Verified Adverse Reaction, Intermediate, dizziness,nausea vomiting, 08/13/16) BROWN Inhibitors (Verified Adverse Reaction, Mild, COUGH, 08/13/16) Levofloxacin (Verified Adverse Reaction, Mild, NAUSEA, 08/13/16) Lisinopril (Verified Adverse Reaction, Mild, cough, 08/13/16) Pravastatin (Verified Adverse Reaction, Mild, NAUSEA, 08/13/16) Cephalexin (Verified Adverse Reaction, Unknown, GI SYMPTOMS, 10/18/16) Oxycodone (Verified Adverse Reaction, Unknown, DELIRIUM, 08/13/16) Current Inpatient Medications Current Inpatient Medications Medications (Trade) Dose Ordered Sig/Vibha Route Start Time Stop Time Status Last Admin Dose Admin Ioversol (Optiray 320) 100 ml UD PRN IV 11/20/16 17:45 11/24/16 17:44 Acetaminophen (Tylenol Tab) 650 mg Q4H PRN PO 11/20/16 21:00 12/20/16 20:59 Al Hydrox/Mg Hydrox/Simethicone (Maalox Max Susp) 15 ml Q4H PRN PO 11/20/16 21:00 12/20/16 20:59 Magnesium Hydroxide (Milk Of Magnesia Susp) 30 ml Q6H PRN PO 11/20/16 21:00 12/20/16 20:59 Polyethylene (Miralax Powder Packet) 17 gm DAILY PRN PO 11/20/16 21:00 12/20/16 20:59 Ondansetron HCl (Zofran Inj) 4 mg Q6H PRN IV 11/20/16 21:00 12/20/16 20:59 11/23/16 10:20 4 MG Allopurinol (Zyloprim Tab) 100 mg DAILY PO 11/21/16 08:00 12/21/16 08:59 11/24/16 09:11 100 MG Allopurinol (Zyloprim Tab) 300 mg DAILY PO 11/21/16 08:00 12/21/16 08:59 11/24/16 09:12 300 MG Budesonide/ Formoterol Fumarate (Symbicort 160/ 4.5 Inh) 2 puffs BID INH 11/22/16 08:00 12/22/16 07:59 11/24/16 09:15 2 PUFFS Clopidogrel Bisulfate (plAVix TAB) 75 mg DAILY PO 11/21/16 08:00 12/21/16 08:59 11/24/16 09:13 75 MG Ferrous Sulfate (Feosol Tab) 325 mg DAILY PO 11/21/16 08:00 12/21/16 08:59 11/24/16 09:12 325 MG Furosemide (Lasix tab) 80 mg BID PO 11/21/16 08:00 12/21/16 07:59 11/24/16 09:12 80 MG Levothyroxine Sodium (Synthroid Tab) 75 mcg DAILYBB PO 11/21/16 06:30 12/21/16 06:29 11/24/16 06:08 75 MCG Loratadine (Claritin Tab) 10 mg DAILY PO 11/21/16 08:00 12/21/16 08:59 11/24/16 09:13 10 MG Ondansetron HCl (Zofran Tab) 8 mg Q6H PRN PO 11/20/16 21:00 12/20/16 20:59 11/23/16 18:40 8 MG Oxybutynin Chloride (Ditropan Tab) 5 mg BID PO 11/21/16 08:00 12/21/16 07:59 11/24/16 09:15 5 MG Pantoprazole Sodium (Protonix Tab) 40 mg DAILY PO 11/21/16 08:00 12/21/16 08:59 11/24/16 09:14 40 MG Pravastatin Sodium (Pravachol Tab) 40 mg QPM PO 11/21/16 21:00 12/21/16 20:59 11/23/16 21:22 40 MG Prednisone (PredniSONE TAB) 40 mg DAILY PO 11/21/16 08:00 12/21/16 08:59 11/24/16 09:11 40 MG Ranitidine HCl (zANTac TAB) 150 mg BID PO 11/21/16 08:00 12/21/16 07:59 11/24/16 09:11 150 MG Scopolamine (Transderm-Scop Patch) 1.5 mg Q3D@0900 TD 11/21/16 09:00 12/21/16 08:59 11/24/16 09:18 1.5 MG Sertraline HCl (Zoloft Tab) 25 mg DAILY PO 11/21/16 08:00 12/21/16 08:59 11/24/16 09:11 25 MG Sucralfate (Carafate Tab) 1 gm ACHS PO 11/21/16 06:30 12/21/16 06:29 11/24/16 06:08 1 GM Tramadol HCl (Ultram Tab) 50 mg Q4H PRN PO 11/20/16 21:00 12/20/16 20:59 Magnesium Oxide (Mag-Ox Tab) 400 mg BID PO 11/21/16 08:00 12/21/16 07:59 11/24/16 09:14 400 MG Artificial Tears (Artificial Tears) 1 drops QID OPB 11/21/16 08:00 12/21/16 07:59 11/24/16 09:15 1 DROPS Lactobacillus Acidophilus (Floranex Tab) 4 tab DAILY PO 11/21/16 08:00 12/21/16 07:59 11/24/16 09:13 4 TAB Miscellaneous (Remove Transderm-Scop Patch) 1 ea Q3D@0859 N/A 11/21/16 08:59 12/21/16 08:58 11/24/16 09:17 1 EA Miscellaneous Information (Check Scopolamine Patch Placement) 1 ea QS N/A 11/21/16 08:00 12/21/16 07:59 11/24/16 09:17 1 EA Albuterol Sulfate (Ventolin 0.083% 2.5MG/3ML Neb) 2.5 mg Q6H PRN INH 11/20/16 21:15 12/20/16 21:14 11/22/16 09:55 2.5 MG Insulin Aspart SLIDING SCALE G... ACHS SC 11/21/16 06:30 12/21/16 06:29 11/24/16 09:26 2 UNITS Azithromycin/ Dextrose (Zithromax IV/D5 250ml) 255 ml @ 125 mls/hr DAILY@0000 IV 11/21/16 00:00 11/28/16 00:00 11/24/16 02:28 125 MLS/HR Vancomycin HCl (Consult) 1 ea UD PRN N/A 11/20/16 23:45 12/20/16 23:44 Piperacillin Sod/ Tazobactam Sod (Consult) 1 ea UD PRN N/A 11/20/16 23:45 12/20/16 23:44 Glucose (Glucose 40% Gel) 15-30 GRAMS 15 GRAMS... UD PRN PO 11/21/16 00:15 12/21/16 00:14 Glucose (Glucose Chew Tab) 4-8 Tablets 4 Tabl... UD PRN PO 11/21/16 00:15 12/21/16 00:14 Dextrose (Dextrose 50% 50ML Syringe) 25-50ML OF 50% DW IV FOR... UD PRN IV 11/21/16 00:15 12/21/16 00:14 Glucagon (Glucagon Inj) 1 mg UD PRN SQ 11/21/16 00:15 12/21/16 00:14 Guaifenesin (Mucinex Contr Rel Tab) 1,200 mg Q12 PO 11/21/16 09:15 12/21/16 09:14 11/24/16 09:12 1,200 MG Miscellaneous Information 1 ea UD PRN N/A 11/21/16 09:30 12/21/16 09:29 Potassium Chloride (Klor-Con Tab) 40 meq TID PO 11/21/16 14:00 12/21/16 13:59 11/24/16 09:14 40 MEQ Rivaroxaban (Xarelto Tab) 15 mg DAILYBD PO 11/22/16 16:30 12/22/16 16:29 11/23/16 17:37 15 MG Insulin Glargine (Lantus Solostar Pen) 10 unit HS SC 11/21/16 22:00 12/21/16 21:59 11/23/16 21:56 10 UNIT Benzonatate 100 mg 100 mg TID PO 11/22/16 09:15 12/22/16 09:14 11/24/16 09:16 100 MG Vancomycin HCl/ Sodium Chloride (Vancomycin Inj/ Nss 250ml) 275 ml @ 125 mls/hr DAILY@0200 IV 11/23/16 02:00 11/30/16 01:59 11/24/16 02:28 125 MLS/HR Miconazole Nitrate (Desenex Powder) 1 appln BID PRN EXT 11/22/16 11:45 12/22/16 11:44 11/23/16 21:17 1 APPLN Ipratropium [place] (Atrovent 0.02% 0.5MG/2.5ML Neb) 0.5 mg Q6R INH 11/22/16 21:00 12/22/16 20:59 11/24/16 07:30 0.5 MG Levalbuterol (Xopenex 1.25MG/ 0.5ML Neb) 1.25 mg Q6R INH 11/22/16 21:00 12/22/16 20:59 11/24/16 07:30 1.25 MG Metoprolol Succinate 25 mg 25 mg BID PO 11/22/16 20:00 12/22/16 19:59 11/24/16 09:15 25 MG Piperacillin Sod/ Tazobactam Sod/ Dextrose (Zosyn Iv/D5 100ml) 120 ml @ 30 mls/hr Q8H IV 11/23/16 20:00 11/28/16 19:59 11/24/16 04:49 30 MLS/HR Review of Systems Constitutional: No chills, No fever Respiratory: + cough, + sputum Abdomen: No nausea, No vomiting Physical Exam Date Time Temp Pulse Resp B/P Pulse Ox O2 Delivery O2 Flow Rate FiO2 11/24/16 08:03 36.5 97 18 104/71 96 Room Air 11/24/16 02:25 87 16 95 Room Air 11/24/16 00:31 36.7 85 18 117/76 98 Room Air 11/24/16 00:00 Room Air 11/23/16 20:00 Room Air 11/23/16 19:46 88 16 96 Room Air 11/23/16 16:00 Room Air 11/23/16 15:14 36.7 98 20 119/66 94 Room Air 11/23/16 14:19 96 16 98 Room Air General Appearance: no apparent distress Abdomen/GI: non tender, soft, + pertinent finding (small wound from drainage catheter ) Laboratory Results Last 24 Hours Test 11/23/16 11:38 11/23/16 16:45 11/23/16 20:06 11/24/16 01:41 Bedside Glucose 92 mg/dl 180 mg/dl 212 mg/dl Vancomycin Level Trough 20.6 mcg/ml Test 11/24/16 07:35 11/24/16 07:55 White Blood Count 18.26 K/uL Red Blood Count 3.80 M/uL Hemoglobin 10.5 g/dL Hematocrit 32.4 % Mean Corpuscular Volume 85.3 fL Mean Corpuscular Hemoglobin 27.6 pg Mean Corpuscular Hemoglobin Concent 32.4 g/dl RDW Standard Deviation 49.9 fL RDW Coefficient of Variation 16.3 % Platelet Count 298 K/uL Mean Platelet Volume 10.2 fL Creatinine 0.97 mg/dl Est Creatinine Clear Calc Drug Dose 47.5 ml/min Estimated GFR () 66.2 Estimated GFR (Non- 57.1 Bedside Glucose 100 mg/dl CT IMPRESSION: 1. Acute diverticulitis of the proximal sigmoid colon. Mild improvement since exam of October 18, 2016. Interval decrease in size of the diverticular abscess along the left aspect of the bladder dome status post apparent interval percutaneous drainage. This can be correlated with prior procedural history. Minimal amount of fluid within the cavity. No new abscess. A follow-up colonoscopy once the patient's acute symptoms resolve is recommended to exclude the less likely possibility of an underlying mass. 2. Persistent wall thickening of the bladder which is due to diverticulitis. No gas within the bladder to indicate a fistula at this time although the patient is at risk for development of a colovesicular fistula. Electronically signed by: Yonathan Leung M.D. 11/20/2016 7:39 PM Dictated Date/Time: 11/20/2016 7:28 PM Assessment & Plan diverticulitis CT improved since IR drainage. Her exam is benign. She is on IV zosyn and vanco already and continued treatment for pneumonia should sufficiently cover her diverticulitis. Consider repeat colonoscopy (was also being followed for polyps) once her acute issues have resolved. She is hoping to return to [facility] soon to continue rehab and return home.
[2016-11-24] MEDS ORDERED: PRED10TA PO (11:57)
[2016-11-24] MEDS ORDERED: TPRSR25 PO (11:57)
[2016-11-24] MEDS ORDERED: TRAM-10 PO (11:57)
--- NOTE | 2016-11-24 12:00 | Discharge Instructions ---
Discharge Instructions Admission Reason for Admission: Bilateral Pneumonia, Diverticulitis Discharge Discharge Diagnosis / Problem: pneumonia Discharge Goals Goal(s): Diagnostic testing, Therapeutic intervention Activity Recommendations Activity Level: Self Positioning, Assistance Required Therapies: Physical Therapy, Occupational Therapy Lifting Limitations: none Shower/Bathe: keep incision dry .76yo female: Acute on Chronic respiratory failure, COPD with exacerbation - continue steroids as is (prednisone 40mg daily), nebs, supportive care. b/l pneumonia - at risk for gram negative etiology. MRSA swab is also positive. zosyn/zithromax/vanco (latter since MRSA +). Rapid flu and flu PCR both negative. Recent diverticulitis with diverticular abscess - s/p IR drainage at [facility] earlier in October. Recent CT abd/pelvis with nearly resolved abscess cavity but significant inflammation is persistent pain will have [facility] Provide local wound care to previous drain site. Chronic diastolic CHF - compensated resume lasix 11/23/16. T2DM - uncontrolled 2nd to steroids & stress. lantus plus SSI. A. fib on chronic anticoagulation - Cont xarelto. DVT proph - xarelto. Chronic leukocytosis - has seen heme/onc in the past for this and had w/u. Additional Information Patient informed of condition: Yes Advance Directives: Yes DNR: No Level of Care: Skilled Communicable Disease: Yes Prognosis: Stable Current Hospital Diet Patient's current hospital diet: AHA Diet (Heart Healthy), Diabetes Type 2 Diet Discharge Diet Recommended Diet: Regular Diet Pending Studies Studies pending at discharge: no Medical Emergencies . Who to Call and When: Medical Emergencies: If at any time you feel your situation is an emergency, please call 911 immediately. . Non-Emergent Contact Non-Emergency issues call your: Primary Care Provider . . "Provider Documentation" section prepared by Juan Jose Michael. Core Measure Problem Core Measures: None
[2016-11-24] MEDS ORDERED: AMOX875T PO (12:02)
[2016-11-24] MEDS ORDERED: NVLGIPEN SC (12:02)
[2016-11-24 14:18] VITALS: BP 104/71; TEMP 36.5; O2SAT 96
[2016-11-24 14:31] VITALS: PULSE 91; O2SAT 95
--- NOTE | 2016-11-24 15:18 | Pharmacy Progress Note ---
Pharmacy Antibiotic Prog Note Date of Service: Nov 24, 2016. Subjective: The patient is currently receiving VANC 1250mg (~15 mg/kg) IV every 24 hours for HCAP (+) MRSA swab * The patient is currently on day # 5 of VANC-IV therapy. The patient is currently receiving ZOSYN 4.5 grams IV CI every 8 hours for HCAP * The patient is currently on day # 5 of ZOSYN-IV therapy. Objective: Height (Feet): 5 Height (Inches): 0.00 Weight (Kilograms): 82.000 Levels: Item Value Date Time Vancomycin Level Trough 20.6 mcg/ml 11/24/16 0141 Lab Results (24hrs): Laboratory Tests Test 11/24/16 07:35 Creatinine 0.97 mg/dl White Blood Count 18.26 K/uL Recent Pertinent Medications: * Day # 4: Azithromycin 500mg IV daily Assessment & Plan: VANC-IV: * This drug level is: SLIGHTLY Supratherapeutic, though previous Vanc-IV dose was hung 2 hours late thus contributing to elevated trough. Also renal function is slightly better today. * However, will slightly decrease VANC-IV maintenance dose & maintain dosing interval: VANC 1150mg (14mg/kg) IV every 24 hours. * Today is Day # 5, will opt not to draw further levels unless Vanc therapy extended beyond the 7-day stop per pulmonary indication. * Will follow renal function closely and make adjustments as needed. Pharmacy will continue to follow and will adjust dose/frequency as necessary. Thank you
--- NOTE | 2016-11-24 15:50 | Progress Note ---
Subjective Date of Service: Nov 24, 2016. Problem List Medical Problems: (1) Anticoagulant long-term use Status: Acute (2) Bilateral pneumonia Status: Acute (3) Bronchitis Status: Acute (4) Bronchitis Status: Acute (5) Cellulitis Status: Acute (6) Congestive heart failure Status: Acute (7) Dehydration Status: Acute (8) Failure of outpatient treatment Status: Acute (9) Failure to thrive Status: Acute (10) Fall Status: Acute (11) Fall Status: Acute (12) Generalized weakness Status: Acute (13) Generalized weakness Status: Acute (14) H. pylori infection Status: Acute (15) Hypoxia Status: Acute (16) Intractable nausea and vomiting Status: Acute (17) Intractable vomiting Status: Acute (18) Leukocytosis Status: Acute (19) Renal insufficiency Status: Acute (20) Supratherapeutic INR Status: Acute (21) Theophylline toxicity Status: Acute (22) Urinary tract infection Status: Acute (23) UTI (urinary tract infection) Status: Acute (24) Vomiting and diarrhea Status: Acute (25) Weakness Status: Acute (26) Weakness Status: Acute (27) Weakness Status: Acute Objective Vital Signs Date Time Temp Pulse Resp B/P Pulse Ox O2 Delivery O2 Flow Rate FiO2 11/24/16 08:03 36.5 97 18 104/71 96 Room Air 11/24/16 02:25 87 16 95 Room Air 11/24/16 00:31 36.7 85 18 117/76 98 Room Air 11/24/16 00:00 Room Air 11/23/16 20:00 Room Air 11/23/16 19:46 88 16 96 Room Air 11/23/16 16:00 Room Air 11/23/16 15:14 36.7 98 20 119/66 94 Room Air 11/23/16 14:19 96 16 98 Room Air Laboratory Results Last 24 Hours Test 11/23/16 20:06 11/24/16 01:41 11/24/16 07:35 Bedside Glucose 212 mg/dl Vancomycin Level Trough 20.6 mcg/ml White Blood Count 18.26 K/uL Red Blood Count 3.80 M/uL Hemoglobin 10.5 g/dL Hematocrit 32.4 % Mean Corpuscular Volume 85.3 fL Mean Corpuscular Hemoglobin 27.6 pg Mean Corpuscular Hemoglobin Concent 32.4 g/dl RDW Standard Deviation 49.9 fL RDW Coefficient of Variation 16.3 % Platelet Count 298 K/uL Mean Platelet Volume 10.2 fL Creatinine 0.97 mg/dl Est Creatinine Clear Calc Drug Dose 47.5 ml/min Estimated GFR () 66.2 Estimated GFR (Non- 57.1 Assessment and Plan 76yo female: Acute on Chronic respiratory failure, COPD with exacerbation - continue steroids as is (prednisone 40mg daily), nebs, supportive care. b/l pneumonia - at risk for gram negative etiology. MRSA swab is also positive. zosyn/zithromax/vanco (latter since MRSA +). Rapid flu and flu PCR both negative. Recent diverticulitis with diverticular abscess - s/p IR drainage at [facility] [place] earlier in October. Recent CT abd/pelvis with nearly resolved abscess cavity but significant inflammation is persistent pain will have Surgical opinion. Provide local wound care to previous drain site. Chronic diastolic CHF - compensated resume lasix 11/23/16. T2DM - uncontrolled 2nd to steroids & stress. lantus plus SSI. A. fib on chronic anticoagulation - Cont xarelto. DVT proph - xarelto. Chronic leukocytosis - has seen heme/onc in the past for this and had w/u. Lillian Tran when medically ready Continued [facility] stay due to: multiple IV medications needed Discharge planning: longterm facility
--- NOTE | 2016-11-24 15:58 | Discharge Summary ---
Discharge Summary Admission Date: Nov 20, 2016 at 20:57 Discharge Date: Nov 24, 2016 Discharge Disposition: intermediate facility Principal Diagnosis: pneumonia Immunizations: Have You Had Influenza Vaccine: Yes Influenza Vaccine Date: Aug 02, 2011 History of Tetanus Vaccine?: Yes History of Pneumococcal: Yes Pneumococcal Date: Jul 02, 2000 History of Hepatitis B Vaccine: No Medication Reconciliation New Medications: Amoxicillin & Pot Clavulanate (Augmentin 875-125 mg) 1 Tab Tab 875 MG PO BID, #20 TAB Insulin Aspart (Novolog Flexpen) 100 Units/Ml Inj 0 UNITS SC ACHS, #1 PEN use while on steroids goal 120-150 correction 25 carb ratio 10 Metoprolol Succinate (Metoprolol Succinate ER) 25 Mg Tabcr 25 MG PO BID, #60 DOSE Changed Medications: Prednisone Tab (Prednisone) 10 Mg Tab 10 MG PO UD, #42 TAB (Changed from: Prednisone 20 Mg Tab 40 Mg PO DAILY 5 Days # 10 TAB) 4 pills a day for 4 days then 3 pills a day for 4 days then 2 pills a day for 4 days then 1 pill a day and asses for future need Continued Medications: Acetaminophen Tab (Tylenol) 325 Mg Tab 650 MG PO Q4H PRN for Mild Pain, TAB DO NOT EXCEED 3 GM APAP/24 HOURS Albuterol (Proair Hfa) Aers 2 PUFFS INH UD PRN for SOB/Wheezing Allopurinol (Zyloprim) 300 Mg Tab 300 MG PO DAILY, TAB TAKE ONE 300 MG TABLET ALONG WITH ONE 100 MG TABLET TO EQUAL 400 MG DAILY DOSE Allopurinol (Zyloprim) 100 Mg Tab 100 MG PO DAILY, TAB TAKE ONE 100 MG TABLET ALONG WITH ONE 300 MG TABLET TO EQUAL 400 MG DAILY DOSE Bisacodyl (Bisac-Evac) 10 Mg Sup 10 MG CO UD PRN for Constipation NEEDED ON MORNING OF DAY 5 WITHOUT BOWEL MOVEMENT AND MOM WAS INEFFECTIVE Budesonide/Formoterol Fumarate (Symbicort 160/4.5 Inhaler ) Aero 2 PUFFS INH BID Clopidogrel (Plavix) 75 Mg Tab 75 MG PO DAILY Cranberry (Vaccinium Macrocarp (Cranberry Extract) 200 Mg Cap 200 MG PO DAILY Docusate Sodium (Docusate Sodium) 100 Mg Cap 100 MG PO BID, CAP Ferrous Sulfate (Ferrous Sulfate) 325 Mg Tab 325 MG PO DAILY Furosemide (Lasix) 80 Mg Tab 80 MG PO BID, TAB Guaifenesin Ext Rel (Mucinex Ext Rel) 600 Mg Tab 600 MG PO Q12, TAB Insulin Human NPH (Novolin N) 100 Units/Ml Susp 16 UNITS SC DAILY ADMINISTER WITH EVENING MEAL Ipratropium-Albuterol (Duoneb) 3 Ml Nebu 1 TREATMENT INH Q6H PRN for SOB/Wheezing, INHA Levothyroxine Sodium (Levothyroxine Sodium) 75 Mcg Tab 75 MCG PO DAILY, TAB Loratadine (Claritin) 10 Mg Tab 10 MG PO DAILY, TAB Magnesium Hydroxide (Milk Of Magnesia) 30 Ml Susp 30 ML PO UD PRN for Constipation, ML NEEDED FOR NO BOWEL MOVEMENT FOR 3 DAYS. GIVE ON MORNING OF DAY 4. Magnesium Oxide (Mg Supplement (Magnesium Oxide) 400 Mg Tab 400 MG PO BID Ondansetron Hcl (Zofran) 8 Mg Tab 8 MG PO Q6H PRN for Nausea or Vomiting, TAB Oxybutynin Chloride (Ditropan) 5 Mg Tab 5 MG PO BID Pantoprazole (Protonix) 40 Mg Tab 40 MG PO DAILY, TAB Polyvinyl Alcohol (Artificial Tears) 1.4 % Nicole 1 DROP OPB QID Potassium Chloride Microencaps (Potassium Chloride Er) 20 Meq Tab 40 MEQ PO BID, TAB Pravastatin Sod (Pravastatin Sodium) 40 Mg Tab 40 MG PO QPM Probiotic Product (Align) 4 Mg Cap 4 MG PO DAILY ADMINISTER THIS MEDICATION ONCE DAILY AFTER EVENING MEAL Ranitidine Hcl (Zantac) 150 Mg Tab 150 MG PO BID, TAB Rivaroxaban (Xarelto) 20 Mg Tab 20 MG PO DAILY, TAB Scopolamine (Transderm-Scop) 1.5 Mg Tdsy 1.5 MG TOP [id number] REMOVE OLD SCOPOLAMINE PATCH AND APPLY ANOTHER EVERY 3 DAYS Sertraline (Zoloft) 25 Mg Tab 25 MG PO DAILY, TAB Sodium Phosphate/Biphosphate (Fleet Enema) Amy 1 EA CO UD PRN for Constipation, BTL NEEDED MORNING OF DAY 6 WITHOUT BOWEL MOVEMENT IF DULCOLAX SUPPOSITORY WAS INEFFECTIVE Sucralfate (Carafate) 1 Gm Tab 1 GM PO ACHS, TAB Tramadol (Ultram) 50 Mg Tab 50 MG PO Q4H PRN for Severe Pain, #60 TAB (This prescription has been renewed) Discontinued Medications: Metolazone (Zaroxolyn) 2.5 Mg Tab 2.5 MG PO 3XWK, TAB TAKE THIS MEDICATION THREE TIMES WEEKLY 30 MINUTES BEFORE LASIX Metoprolol Succinate (Metoprolol Succinate ER) 25 Mg Tabcr 12.5 MG PO BID Tramadol (Ultram) 50 Mg Tab 25 MG PO Q4H PRN for Moderate Pain, TAB Discharge Exam Review of Systems: Constitutional: No chills, No fever, No sweats Respiratory: No cough, No shortness of breath, No sputum, No wheezing Cardiovascular: No chest pain, No edema, No orthopnea Abdomen: + pain, No diarrhea, No nausea, No vomiting Genitourinary - Female: No dysuria, No urinary frequency Hospital Course .76yo female: Acute on Chronic respiratory failure, COPD with exacerbation - continue steroids as is (prednisone 40mg daily), with taper b/l pneumonia - at risk for gram negative etiology. MRSA swab is also positive. zosyn/zithromax/vanco (latter since MRSA +). will complete outpt augmentin Rapid flu and flu PCR both negative. Recent diverticulitis with diverticular abscess - s/p IR drainage at [facility] [place] earlier in October. Recent CT abd/pelvis with nearly resolved abscess cavity but significant inflammation is persistent pain will have Surgical opinion to follow course from [facility] with follow up there. Provide local wound care to previous drain site. Chronic diastolic CHF - compensated resume lasix 11/23/16. T2DM - uncontrolled 2nd to steroids & stress. lantus plus SSI. A. fib on chronic anticoagulation - Cont xarelto. DVT proph - xarelto. Chronic leukocytosis - has seen heme/onc in the past for this and had w/u. Total Time Spent: Greater than 30 minutes This includes examination of the patient, discharge planning, medication reconciliation, and communication with other providers. Discharge Instructions Please refer to the electronic Patient Visit Report (Discharge Instructions) for additional information.
[2016-11-24] MEDS: RIVAROXABAN TAB 15 MG TAB PO SCH (16:11)
[2016-11-25] MEDS ORDERED: VANCOMYCIN INJ 1,150 MG in SODIUM CHLORIDE 0.9% 250ML 250 ML IV SCH (04:00)
[2017-01-08] MEDS ORDERED: CIPR250T3 PO (01:34)
[2017-01-13] MEDS ORDERED: FURO80TA63 PO (14:22)
[2017-01-13] MEDS ORDERED: POTA20TA13 PO (14:22)
== END 2016-11-24 18:35 | DRG 189 ==
LOC: ENRESERVDT → ENRESERVTM → EDBD 17:00 → C.EDB 17:03 → UNDOADMIN 20:57 → C.MS4W 20:57
PROVIDERS: ADMIT Internal Medicine; ATTEND Internal Medicine
DX: J96.20 Acute and chronic respiratory failure, unspecified whether with hypoxia or hypercapnia (principal); J15.212 Pneumonia due to Methicillin resistant Staphylococcus aureus; J44.0 Chronic obstructive pulmonary disease with (acute) lower respiratory infection; J44.1 Chronic obstructive pulmonary disease with (acute) exacerbation; I50.32 Chronic diastolic (congestive) heart failure; K57.20 Diverticulitis of large intestine with perforation and abscess without bleeding; Y95 Nosocomial condition; E86.0 Dehydration; E11.65 Type 2 diabetes mellitus with hyperglycemia; T38.0X5A Adverse effect of glucocorticoids and synthetic analogues, initial encounter; R29.6 Repeated falls; R53.81 Other malaise; D72.829 Elevated white blood cell count, unspecified; E87.6 Hypokalemia; I48.91 Unspecified atrial fibrillation; N32.9 Bladder disorder, unspecified; K21.9 Gastro-esophageal reflux disease without esophagitis; I25.10 Atherosclerotic heart disease of native coronary artery without angina pectoris; M10.9 Gout, unspecified; E66.01 Morbid (severe) obesity due to excess calories; Z68.35 Body mass index [BMI] 35.0-35.9, adult; Z98.890 Other specified postprocedural states; Z95.0 Presence of cardiac pacemaker; Z95.4 Presence of other heart-valve replacement; Z79.01 Long term (current) use of anticoagulants; Z79.4 Long term (current) use of insulin; Z79.51 Long term (current) use of inhaled steroids; Z79.891 Long term (current) use of opiate analgesic; Z79.899 Other long term (current) drug therapy

== ENCOUNTER → 2016-12-29 | Outpatient (CLI) | payer OTHER ==
[~2016-12-29] MED LIST changes: +ACET325T96 PO; +ALLO300T2 PO; +ASPI81TA28 PO; +BISA10SU7 PR; +CEFU250T15 PO; +CHOL2000 PO; +CIPR250T3 PO; +CLR10 PO; -CRAN1CAP16 PO; +CRAN1TAB4 PO; +CRAN200C PO; +DICL1GEL12 TOP; -ERGO1TAB10 PO; +FERR325T5 PO; +FURO80TA63 PO; +GUAI1TAB55 PO; +INSHNI SQ; -INSUINJ SQ; +IPRASOL4 INH; -LEVO50TA PO; +LEVO75TA5 PO; -LOVA40TA3 PO; -MAGN1CAP4 PO; +MAGN1TAB19 PO; +MISC4CAP PO; +MOML PO; +NVLGIPEN SC; +NVLNI SC; +NYST100010 TD; -NYST100010 TOP; -NYST80OI TOP; -ONDA4TAB46 PO; +ONDA4TAB9 PO; +ONDA8TAB12 PO; +POLY99.0 OPB; -POTA10CA28 PO; +POTA20TA11 PO; +POTA20TA13 PO; +PRED10TA PO; +PRVC/40 PO; +SCOP1DIS14 TD; +SCPTP TOP; +SERT25TA PO; +SODIENE PR; +TPRSR25 PO; +VNTHFA/IN INH
[2016-12-29 17:46] LABS: BASO % 0.3 %; BASO ABS # 0.04 K/uL (0-0.2); COMPLETE YES; HEMATOCRIT 35.2 % (37-47); LYMPH % 17.8 %; LYMPH ABS # 2.71 K/uL (1.2-3.4); MEAN CELL VOLUME 87.1 fL (80-100); MEAN CORPUSCULAR HEMOGLOBIN 27.7 pg (25-34); MEAN CORPUSCULAR HGB CONC 31.8 g/dl (32-36); MEAN PLATELET VOLUME 10.2 fL (7.4-10.4); MONO % 6.8 %; NEUT % 70.1 %; PLATELET COUNT 290 K/uL (130-400); RED BLOOD COUNT 4.04 M/uL (4.2-5.4); WHITE BLOOD COUNT 15.26 K/uL (4.8-10.8)
[2016-12-29 18:31] LABS: ALT/SGPT 17 U/L (12-78); AST/SGOT 9 U/L (15-37); BLOOD UREA NITROGEN 22 mg/dl (7-18); BUN/CREATININE RATIO 30.1 (10-20); CARBON DIOXIDE 29 mmol/L (21-32); CHLORIDE 102 mmol/L (98-107); CREATININE 0.74 mg/dl (0.60-1.20); GLUCOSE 90 mg/dl (70-99); SODIUM 140 mmol/L (136-145)
[2016-12-29 18:41] LABS: ALB/GLOB RATIO 0.8 (0.9-2); ALKALINE PHOSPHATASE 100 U/L (45-117)
== END | disposition home or self-care (01) ==
LOC: C.LABBFT 16:09
PROVIDERS: ATTEND Internal Medicine
DX: I25.5 Ischemic cardiomyopathy (principal); E03.9 Hypothyroidism, unspecified

== ENCOUNTER → 2017-01-04 | Outpatient (CLI) | payer OTHER | END | disposition home or self-care (01) | LOC: C.LABSPEC 11:19 | PROVIDERS: ATTEND Internal Medicine | DX: R39.15 Urgency of urination (principal) ==

== ENCOUNTER 2017-01-10 20:29 | Inpatient (IN) | payer OTHER ==
[~2017-01-10] VITALS: Ht 152.4 cm; Wt 83.8 kg
[~2017-01-10 20:29] MED LIST changes: -ASPI81TA28 PO; -CEFU250T15 PO; -CHOL2000 PO; -CRAN1TAB4 PO; -DICL1GEL12 TOP; -INSHNI SQ; -NYST100010 TD; -ONDA4TAB9 PO; -POTA20TA11 PO; -SCOP1DIS14 TD; -VNTHFA/IN INH
[2017-01-10] MEDS ORDERED: AMINOCAPROIC (AMICAR) 5% MOUTHWASH PO ONE (22:45)
[2017-01-10 22:47] LABS: HEMATOCRIT 27.8 % (37-47); MEAN CELL VOLUME 85.5 fL (80-100); MEAN CORPUSCULAR HGB CONC 32.7 g/dl (32-36); MEAN PLATELET VOLUME 8.8 fL (7.4-10.4); PLATELET COUNT 377 K/uL (130-400); RED BLOOD COUNT 3.25 M/uL (4.2-5.4); WHITE BLOOD COUNT 21.64 K/uL (4.8-10.8)
[2017-01-10] MEDS ORDERED: AMINOCAPROIC ACID INJ 5,000 MG, WATER, STERILE FOR INJ 80 ML PO STA ×4 (22:49→22:51)
--- NOTE | 2017-01-10 22:55 | DIAGNOSTIC IMAGING REPORT ---
CHEST ONE VIEW PORTABLE CLINICAL HISTORY: Weakness. COMPARISON STUDY: Chest CT November 20, 2016. FINDINGS: Lung volumes are normal. There is no pneumothorax or pleural effusion. 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 There are median sternotomy wires and a prosthetic aortic valve. Moderate cardiomegaly is unchanged. There is no evidence of pulmonary edema. No consolidation is identified. Elevation the right humeral head suggests a chronic right rotator cuff tear. IMPRESSION: No acute cardiopulmonary findings. Stable cardiomegaly. No evidence of pulmonary edema. Electronically signed by: Yonathan Leung M.D. 01/10/2017 10:53 PM Dictated Date/Time: 01/10/2017 10:52 PM
[2017-01-10 22:56] LABS: INR 1.1 (0.9-1.1); PARTIAL THROMBOPLASTIN RATIO 1.3; PROTHROMBIN TIME (PATIENT) 11.5 SECONDS (9.0-12.0)
[2017-01-10 23:03] LABS: CALCIUM 8.5 mg/dl (8.5-10.1); CREATININE 0.97 mg/dl (0.60-1.20); MAGNESIUM 2.4 mg/dl (1.8-2.4); POTASSIUM 3.4 mmol/L (3.5-5.1)
[2017-01-10 23:13] LABS: ALB/GLOB RATIO 0.7 (0.9-2); CKMB/CK RATIO 8.5 (0-3.0); THYROID STIMULATING HORMONE 3.15 uIu/ml (0.300-4.500)
[2017-01-10 23:30] LABS: URINE APPEARANCE CLEAR (CLEAR); URINE BILIRUBIN NEG (NEG); URINE COLOR YELLOW; URINE NITRITE NEG (NEG); URINE SPECIFIC GRAVITY 1.005 (1.000-1.030); UROBILINOGEN NEG (NEG); ZZURINE CULT IF INDIC CATH NO
[2017-01-10 23:33] LABS: MANUAL MICROSCOPIC REQUIRED? NO; REVIEW REQ? NO
[2017-01-10 23:49] LABS: BASO % 0.4 %; BASO ABS # 0.09 K/uL (0-0.2); COMPLETE YES; IG% 7.2 %; LYMPH % 13.4 %; LYMPH ABS # 2.89 K/uL (1.2-3.4); MONO % 4.9 %; NEUT % 74.1 %; POLYCHROMASIA 1+; TEAR DROP CELLS 1+
[2017-01-10] MEDS ORDERED: PIPERACILLIN/TAZOBACTAM 4.5 GM/100ML D5W IV STA (23:51)
[2017-01-11] VITALS (10 sets, daily range): BP systolic 97–136; BP diastolic 67–88; PULSE 85–98; TEMP 36.4–36.7; O2SAT 95–100; BMI 35.4
[2017-01-11] MEDS ORDERED: OPTIRAY 320 IV PRN
[2017-01-11] MEDS ORDERED: VNTHFA/IN INH (01:29)
[2017-01-11] MEDS ORDERED: ONDA4TAB9 PO (01:34)
[2017-01-11] MEDS ORDERED: ASPI81TA28 PO (01:35)
[2017-01-11] MEDS ORDERED: SODIUM CHLORIDE 0.9% 1000ML 1,000 ML IV STA (01:48)
[2017-01-11] MEDS ORDERED: SODIUM CHLORIDE 0.9% 250ML 250 ML IV STA (01:48)
[2017-01-11] MEDS ORDERED: METOPROLOL TARTRATE 1 MG/ML VIAL IV STA (01:48)
[2017-01-11] MEDS ORDERED: POTASSIUM CHLR 10 MEQ / WTR 10 MEQ in PREMIXED WATER 100 ML IV SCH (02:45)
[2017-01-11] MEDS ORDERED: POTASSIUM CHLORIDE 10 MEQ TABCR PO STA (02:47)
[2017-01-11] MEDS ORDERED: ACETAMINOPHEN 325 MG TAB PO PRN (03:00)
[2017-01-11] MEDS ORDERED: ALBUT/IPRATROP 3MG/0.5MG NEB 3 ML VIAL INH PRN (03:00)
[2017-01-11] MEDS ORDERED: ZOLPIDEM TARTRATE 5 MG TAB PO PRN (03:00)
[2017-01-11] MEDS ORDERED: METOPROLOL SUCC 50MG EXT REL TAB PO STA (03:07)
[2017-01-11] MEDS ORDERED: DIGOXIN IV 125 MCG in SYRINGE 9.5 ML IV STA (03:10)
[2017-01-11] MEDS ORDERED: PIPERACILL/TAZOBAC CONSULT ACTIVE PRN (03:45)
[2017-01-11] MEDS: NSS + 20MEQ KCL 1000ML 1,000 ML IV SCH ×3 (05:41→19:27)
[2017-01-11] MEDS: PIPERACILL/TAZOBAC IV 4.5 GM in DEXTROSE 5% 100ML 100 ML IV SCH ×3 (05:41→21:30)
[2017-01-11] MEDS: LEVOTHYROXINE 75 MCG TAB PO SCH (05:42)
--- NOTE | 2017-01-11 06:11 | History and Physical ---
History & Physical Date & Time of Service: Jan 11, 2017 at 05:47 Chief Complaint: Atrial Fibrillation W/ Rvr, Diverticulitis Primary Care Physician: Jesus Amaya M.D. History of Present Illness Source: patient The patient is a 76-year-old female who recently underwent a dental procedure for teeth extractions. It sounds as though she got her instructions confused, and instead of stopping Xarelto, she stopped metoprolol. She presents to the emergency department with weakness and shortness of breath that developed a few hours prior to arrival. Her oral intake has been decreased due to the dental procedure. She has had ongoing abdominal issues and follows with physicians at [facility]. Past Medical/Surgical History Medical Problems: (1) Collins's palsy Status: Chronic (2) CHF (congestive heart failure) Status: Chronic (3) COPD (chronic obstructive pulmonary disease) Status: Chronic (4) Ductal carcinoma in situ (DCIS) of left breast Permanent Comment: Abnormal left breast mammogram Status post biopsy revealing DCIS Reexcision with no residual disease status post completion of radiation therapy 08/17/2012 utilizing accelerated partial breast treatment received 3850 cGy Reexcision of fibroadipose tissue and fat necrosis 02/15/2014 Status: Resolved (5) Emphysema of lung Status: Chronic (6) GERD (gastroesophageal reflux disease) Status: Chronic (7) Pacemaker Status: Chronic Surgical Problems: (1) H/O aortic valve replacement Status: Chronic (2) S/P AVR (aortic valve replacement) Status: Resolved Family History Cancer Diabetes mellitus Heart disease Hypertension Social History Smoking Status: Never Smoker Smokeless Tobacco Use: No Alcohol Use: none Drug Use: none Marital Status: Housing status: lives alone Occupational Status: retired Immunizations History of Influenza Vaccine: Yes Influenza Vaccine Date: Aug 02, 2011 History of Tetanus Vaccine?: Yes History of Pneumococcal: Yes Pneumococcal Date: Jul 02, 2000 History of Hepatitis B Vaccine: No Multi-Drug Resistant Organisms History of MDRO: Yes Type of MDRO: MRSA Allergies Coded Allergies: Atorvastatin (Verified Allergy, Severe, SWELLING, 01/11/17) Sulfa Antibiotics (Verified Allergy, Severe, MOUTH AND TOUNGE SWELL, ) Angiotensin Receptor Blockers (Verified Allergy, Unknown, Unknown, 01/11/17 ) Losartan (Verified Allergy, Unknown, swelling/reflux, 01/11/17) Morphine and Related (Verified Allergy, Unknown, Unknown, 01/11/17) Quinolones (Verified Allergy, Unknown, Unknown, 01/11/17) Statins (Verified Allergy, Unknown, Unknown, 01/11/17) Sulfonylureas (Verified Allergy, Unknown, Unknown, 01/11/17) Glipizide (Verified Adverse Reaction, Intermediate, NAUSEA, 01/11/17) Metformin (Verified Adverse Reaction, Intermediate, vomiting, 01/11/17) Nitrofurantoin (Verified Adverse Reaction, Intermediate, dizziness,nausea vomiting, 01/11/17) BROWN Inhibitors (Verified Adverse Reaction, Mild, COUGH, 01/11/17) Levofloxacin (Verified Adverse Reaction, Mild, NAUSEA, 01/11/17) Lisinopril (Verified Adverse Reaction, Mild, cough, 01/11/17) Pravastatin (Verified Adverse Reaction, Mild, NAUSEA, 01/11/17) Cephalexin (Verified Adverse Reaction, Unknown, GI SYMPTOMS, 01/11/17) Oxycodone (Verified Adverse Reaction, Unknown, DELIRIUM, 01/11/17) Home Medications Scheduled Allopurinol (Zyloprim), 300 MG PO DAILY Allopurinol (Zyloprim), 100 MG PO DAILY Aspirin (Aspirin Ec), 81 MG PO DAILY Budesonide/Formoterol Fumarate (Symbicort 160/4.5 Inhaler ), 2 PUFFS INH BID Ciprofloxacin (Cipro), 250 MG PO BID Clopidogrel (Plavix), 75 MG PO DAILY Cranberry (Vaccinium Macrocarp (Cranberry Extract), 200 MG PO DAILY Docusate Sodium (Docusate Sodium), 100 MG PO BID Ferrous Sulfate (Ferrous Sulfate), 325 MG PO DAILY Furosemide (Lasix), 80 MG PO BID Guaifenesin Ext Rel (Mucinex Ext Rel), 600 MG PO Q12 Insulin Aspart (Novolog Flexpen), 0 UNITS SC ACHS Insulin Human NPH (Novolin N), 16 UNITS SC DAILY Levothyroxine Sodium (Levothyroxine Sodium), 75 MCG PO DAILY Loratadine (Claritin), 10 MG PO DAILY Magnesium Oxide (Mg Supplement (Magnesium Oxide), 400 MG PO BID Metoprolol Succinate (Metoprolol Succinate ER), 25 MG PO BID Oxybutynin Chloride (Ditropan), 5 MG PO BID Pantoprazole (Protonix), 40 MG PO DAILY Polyvinyl Alcohol (Artificial Tears), 1 DROP OPB QID Potassium Chloride Microencaps (Potassium Chloride Er), 40 MEQ PO BID Pravastatin Sod (Pravastatin Sodium), 40 MG PO QPM Probiotic Product (Align), 4 MG PO DAILY Ranitidine Hcl (Zantac), 150 MG PO BID Rivaroxaban (Xarelto), 20 MG PO DAILY Sertraline (Zoloft), 25 MG PO DAILY Sucralfate (Carafate), 1 GM PO ACHS Scheduled PRN Acetaminophen Tab (Tylenol), 650 MG PO Q4H PRN for Mild Pain Albuterol Hfa (Ventolin Hfa), 2 PUFFS INH Q6H PRN for SOB/Wheezing Ipratropium-Albuterol (Duoneb), 1 TREATMENT INH Q6H PRN for SOB/Wheezing Ondansetron (Ondansetron HCl), 4 MG PO Q6 PRN for Nausea Review of Systems The patient denies lower extremity swelling, vision change, hearing change, sore throat, fevers, chills, sweats, weight change, blood in urine or stool, dysuria, urinary frequency or urgency, lightheadedness, dizziness, headache, memory loss, rash, abnormal bruising or bleeding, imbalance, focal weakness, numbness or tingling in arms or legs, arthralgias or myalgias, back or neck pain , night sweats, or allergy symptoms. The review of systems is otherwise negative other than for that already noted above, and at least 10 systems have been reviewed. Physical Exam Vital Signs Date Time Temp Pulse Resp B/P Pulse Ox O2 Delivery O2 Flow Rate FiO2 01/11/17 04:50 36.4 89 16 102/71 98 Room Air 01/11/17 04:05 110 21 96/64 99 01/11/17 03:34 127 01/11/17 02:54 118 24 115/64 96 Room Air 01/11/17 02:02 124 20 91/47 97 Room Air 01/11/17 01:21 123 20 91/64 98 Room Air 01/11/17 01:04 105 01/10/17 23:40 121 20 117/68 98 Room Air 01/10/17 23:19 113 22 100 Room Air 01/10/17 22:43 98 Room Air 01/10/17 21:55 116 18 139/83 98 01/10/17 21:20 108 01/10/17 20:56 36.6 87 20 124/70 98 Room Air The patient is awake, well-developed and adequately nourished, alert and oriented 3, normocephalic and atraumatic, lying in bed and in no acute distress. HEENT--PERRL, EOMI, mucous membranes and oropharynx dry. Neck--supple, no JVD or bruits, thyroid normal, trachea midline, no adenopathy. Heart--normal S1 and S2, no extra beats, no murmurs, rubs or gallops. Lungs--clear bilaterally with good air movement, no respiratory distress, no accessory muscle use. Abdomen--normal bowel sounds and soft, mildly tender left lower quadrant, dressing over skin wound. Extremities--no cyanosis, clubbing or edema. There are good distal pulses b/l. Dermatologic--normal except for area with previous fistula and drainage and dressing. Neurologic--cranial nerves II through XII grossly intact, motor and sensory examination normal. Rheumatologic--normal range of motion, nontender, muscles and joints for age. Psychiatric--normal affect. Diagnostics Laboratory Results Results Past 24 Hours Test 01/10/17 22:35 01/10/17 23:06 Range/Units White Blood Count 21.64 4.8-10.8 K/uL Red Blood Count 3.25 4.2-5.4 M/uL Hemoglobin 9.1 12.0-16.0 g/dL Hematocrit 27.8 37-47 % Mean Corpuscular Volume 85.5 80-100 fL Mean Corpuscular Hemoglobin 28.0 25-34 pg Mean Corpuscular Hemoglobin Concent 32.7 32-36 g/dl Platelet Count 377 130-400 K/uL Mean Platelet Volume 8.8 7.4-10.4 fL Neutrophils (%) (Auto) 74.1 % Lymphocytes (%) (Auto) 13.4 % Monocytes (%) (Auto) 4.9 % Eosinophils (%) (Auto) 0.0 % Basophils (%) (Auto) 0.4 % Neutrophils # (Auto) 16.03 1.4-6.5 K/uL Lymphocytes # (Auto) 2.89 1.2-3.4 K/uL Monocytes # (Auto) 1.07 0.11-0.59 K/uL Eosinophils # (Auto) 0.00 0-0.5 K/uL Basophils # (Auto) 0.09 0-0.2 K/uL RDW Standard Deviation 58.0 36.4-46.3 fL RDW Coefficient of Variation 18.4 11.5-14.5 % Immature Granulocyte % (Auto) 7.2 % Immature Granulocyte # (Auto) 1.56 0.00-0.02 K/uL Nucleated RBC Absolute Count (auto) 0.04 0-0 K/uL Nucleated Red Blood Cells % 0.2 % Polychromasia 1+ Tear Drop Cells 1+ Prothrombin Time 11.5 9.0-12.0 SECONDS Prothromb Time International Ratio 1.1 0.9-1.1 Activated Partial Thromboplast Time 33.9 21.0-31.0 SECONDS Partial Thromboplastin Ratio 1.3 Sodium Level 136 136-145 mmol/L Potassium Level 3.4 3.5-5.1 mmol/L Chloride Level 101 98-107 mmol/L Carbon Dioxide Level 25 21-32 mmol/L Anion Gap 10.0 3-11 mmol/L Blood Urea Nitrogen 36 7-18 mg/dl Creatinine 0.97 0.60-1.20 mg/dl Est Creatinine Clear Calc Drug Dose 49.1 ml/min Estimated GFR () 66.2 Estimated GFR (Non- 57.1 BUN/Creatinine Ratio 37.0 10-20 Random Glucose 88 70-99 mg/dl Calcium Level 8.5 8.5-10.1 mg/dl Magnesium Level 2.4 1.8-2.4 mg/dl Total Bilirubin 0.3 0.2-1 mg/dl Aspartate Amino Transf (AST/SGOT) 8 15-37 U/L Alanine Aminotransferase (ALT/SGPT) 10 12-78 U/L Alkaline Phosphatase 107 45-117 U/L Total Creatine Kinase 13 26-192 U/L Creatine Kinase MB 1.1 0.5-3.6 ng/ml Creatine Kinase MB Ratio 8.5 0-3.0 Total Protein 6.0 6.4-8.2 gm/dl Albumin 2.4 3.4-5.0 gm/dl Globulin 3.6 2.5-4.0 gm/dl Albumin/Globulin Ratio 0.7 0.9-2 Lipase 57 73-393 U/L Thyroid Stimulating Hormone (TSH) 3.150 0.300-4.500 uIu/ml Urine Color YELLOW Urine Appearance CLEAR CLEAR Urine pH 7.0 4.5-7.5 Urine Specific Epes 1.005 1.000-1.030 Urine Protein NEG NEG Urine Glucose (UA) NEG NEG Urine Ketones NEG NEG Urine Occult Blood NEG NEG Urine Nitrite NEG NEG Urine Bilirubin NEG NEG Urine Urobilinogen NEG NEG Urine Leukocyte Esterase TRACE NEG Urine WBC (Auto) 5-10 0-5 /hpf Urine RBC (Auto) 0-4 0-4 /hpf Urine Hyaline Casts (Auto) 1-5 0-5 /lpf Urine Epithelial Cells (Auto) 10-20 0-5 /lpf Urine Bacteria (Auto) NEG NEG Diagnostic Radiology Patient Name: ELIZABETH ALLEN Unit Number: [id number] Dictated: 01/10/172251 Transcribed: 01/10/172251 JA Printed Date/Time: [~ rep prt dt]/[~ rep prt tm] [~ rep ct labl] - [~ rep ct ivnm] [facility] [place] [address] Dictated: 01/10/172251 Transcribed: 01/10/172251 JA Printed Date/Time: [~ rep prt dt]/[~ rep prt tm] [~ rep ct labl] - [~ rep ct ivnm] CHEST ONE VIEW PORTABLE CLINICAL HISTORY: Weakness. COMPARISON STUDY: Chest CT November 20, 2016. FINDINGS: Lung volumes are normal. There is no pneumothorax or pleural effusion. 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 There are median sternotomy wires and a prosthetic aortic valve. Moderate cardiomegaly is unchanged. There is no evidence of pulmonary edema. No consolidation is identified. Elevation the right humeral head suggests a chronic right rotator cuff tear. IMPRESSION: No acute cardiopulmonary findings. Stable cardiomegaly. No evidence of pulmonary edema. Electronically signed by: Yonathan Leung M.D. 01/10/2017 10:53 PM Dictated Date/Time: 01/10/2017 10:52 PM The status of this report is Signed. Draft = Not yet reviewed or approved by Radiologist. Signed = Reviewed and approved by Radiologist. <AttendingPhy></AttendingPhy> <FamilyPhy>Jesus Amaya M.D.</FamilyPhy > <PrimaryPhy>Jesus Amaya M.D.</PrimaryPhy> <UnitNumber>[id number]</ UnitNumber> <VisitNumber>[id number]</VisitNumber> <PatientName>ELIZABETH ALLEN</PatientName> <DateOfBirth>1940</DateOfBirth> <Location>[facility]</Location > <ServiceDate>01/10/17</ServiceDate> <MNE>ESINDI</MNE> <OrderingPhy>Jacob [place] PA-C</OrderingPhy> <OrderingPhyMNE>f rep ord dr baird</OrderingPhyMNE> < DictatingPhyMNE>f rep dict dr baird</DictatingPhyMNE> <CCListMNE>f rep ct chee</ CCListMNE> <AdmittingPhyMNE>f pt admit dr baird</AdmittingPhyMNE> <AttendingPhyMNE >f pt attend dr baird</AttendingPhyMNE> <ConsultingPhyMNE>f pt consult dr baird</ConsultingPhyMNE> <FamilyPhyMNE>f pt fam dr baird</FamilyPhyMNE> <OtherPhyMNE>f pt other dr baird</OtherPhyMNE> < PrimaryPhyMNE>f pt prim care dr baird</PrimaryPhyMNE> <ReferringPhyMNE>f pt referring dr baird</ReferringPhyMNE> Impression Assessment and Plan Atrial fibrillation with RVR--the patient will be admitted to the telemetry unit , for serial cardiac enzymes, cardiac rhythm monitoring and a 2-D echocardiogram with Dopplers. Likely cause is due to mistakenly stopping her metoprolol succinate 25 mg by mouth twice a day which will be resumed. Her potassium is also mildly low at 3.4, and will be given additional potassium chloride 40 mEq by mouth now. We'll follow serial BMP and magnesium levels Dental bleeding postprocedure--she did receive aminocaproic acid applied topically per which appears to have controlled the bleeding. We will hold Xarelto at this time. Acute on chronic diverticulitis with possible fistulous connection to the skin surface/fluid collection between the sigmoid colon and the bladder with adjacent bladder wall irritation--the patient will be placed on Zosyn 3.375 mg IV every 8 hours. She follows with surgeons at [facility]. Bladder spasm--continue Ditropan 5 mg by mouth twice a day. GERD --continue Carafate 1 g before meals and at bedtime, and Protonix 40 mg by mouth daily. Diabetes mellitus--reduce Novolin N from 16-10 units subcutaneous daily. We'll place on Accu-Cheks before meals and at bedtime with NovoLog coverage scale. CHF--hold furosemide 80 mg by mouth twice a day, and place on NSS with KCl 20 mEq 100 ML's per hour. COPD--continue Symbicort, Ventolin HFA and DuoNeb's. Depression--continue sertraline 25 mg by mouth at bedtime. Hypothyroidism--continue levothyroxine sodium 75 g by mouth daily. Gout--continue allopurinol 100 mg by mouth daily. Level of Care Telemetry Advanced Directives Existing Living Will: Yes Existing Power of Diamond Blender: Yes Resuscitation Status FULL RESUSCITATION VTE Prophylaxis VTE Risk Assessment Done? Y/N: Yes Risk Level: Moderate Given or contraindicated: Other Anticoagulation (she has been on Xarelto which will be discontinued), SCD's
--- NOTE | 2017-01-11 07:10 | DIAGNOSTIC IMAGING REPORT ---
ABDOMEN AND PELVIS CT WITH IV CONTRAST CT DOSE: 1182.42 mGy.cm HISTORY: Pain abd pain h/o rectovesicular fistula/abscess TECHNIQUE: Multiaxial CT images of the abdomen and pelvis were performed following the use of intravenous contrast. COMPARISON STUDY: 01/11/2017 FINDINGS: Lung bases are clear. Several small hepatic cysts unchanged. Cortical scarring of both kidneys. No evidence for hydronephrosis. Moderate atrophic changes of the pancreas. Hyperplastic changes adrenal glands bilaterally unchanged. Several small reactive periaortic and/or mesenteric nodes. Increased colonic fecal content consistent with a component of chronic chronic fecal stasis. Small collection adjacent to the anterolateral aspect of the bladder containing a combination of air and fluid. This is unchanged. There are findings of a left anterior midline incision. This may represent residual fistula to the skin surface. Findings of diverticulitis appear to be similar. Moderate pericolonic infiltrative change is present. There is no evidence for new or interval abscess. There is no significant free fluid within the pelvic cul-de-sac. Localized bowel wall thickening adjacent to the small collection is stable. IMPRESSION: 1. Unaltered diverticular abscess and or collection adjacent to the anterolateral aspect of the bladder dome. 2. This again potentially contains a fistulous tract extending to the skin surface and again is similar. 3. Findings of diverticulitis of the sigmoid is stable to perhaps minimally improved. 4. Increased colonic fecal load consistent with a component of fecal stasis. 5. Mild cortical scarring of both kidneys 6. Several for a small hepatic cysts unchanged Electronically signed by: Addison Hickman M.D. 01/11/2017 7:09 AM Dictated Date/Time: 01/11/2017 7:03 AM
[2017-01-11] MEDS: PANTOprazole SOD 40 MG TAB PO SCH (07:51)
[2017-01-11] MEDS: SERTRALINE HCL 50 MG TAB PO SCH (07:56)
[2017-01-11] MEDS: FERROUS SULFATE 325 MG TAB PO SCH (07:57)
[2017-01-11] MEDS: LACTOBACILLUS ACIDOPHILUS (FLORANEX) TAB PO SCH ×3 (07:57→16:51)
[2017-01-11] MEDS: METOPROLOL SUCC 25MG EXT REL TAB PO SCH ×2 (07:58→20:05)
[2017-01-11] MEDS: CLOPIDOGREL BISULFATE 75 MG TAB PO SCH (07:58)
[2017-01-11] MEDS: RANITIDINE HCL 150 MG TAB PO SCH ×2 (07:58→21:14)
[2017-01-11] MEDS: MAGNESIUM OXIDE 400 MG TAB PO SCH ×2 (07:59→21:14)
[2017-01-11] MEDS: GUAIFENESIN 600 MG TABCR PO SCH ×2 (07:59→21:14)
[2017-01-11] MEDS: OXYBUTYNIN CHLORIDE 5 MG TAB PO SCH ×2 (08:00→21:14)
[2017-01-11] MEDS: SUCRALFATE 1 GM TAB PO SCH ×4 (08:00→21:14)
[2017-01-11] MEDS: LORATADINE 10 MG TAB PO SCH (08:00)
[2017-01-11] MEDS: DOCUSATE SODIUM 100 MG CAP PO SCH ×2 (08:01→21:14)
[2017-01-11] MEDS: ALLOPURINOL 100 MG TAB PO SCH (08:01)
[2017-01-11] MEDS: ASPIRIN 81 MG ECTAB PO SCH (08:02)
[2017-01-11] MEDS: BUDESONIDE/FORMOTEROL FUMARATE 160/4.5 60 PUFFS/INHALER INH SCH ×2 (08:03→21:15)
[2017-01-11] MEDS: ARTIFICIAL TEARS OP SOLN OPB SCH ×8 (08:03→21:14)
[2017-01-11] MEDS ORDERED: POTASSIUM CHLORIDE 20 MEQ TABCR PO SCH (09:00)
[2017-01-11] MEDS: INSULIN HUMAN NPH SC SCH (09:00)
[2017-01-11 12:54] LABS: MEAN CORPUSCULAR HGB CONC 32.6 g/dl (32-36); MEAN PLATELET VOLUME 8.9 fL (7.4-10.4); PLATELET COUNT 390 K/uL (130-400)
[2017-01-11 13:36] LABS: BUN/CREATININE RATIO 33.1 (10-20); CALCIUM 8.7 mg/dl (8.5-10.1); POTASSIUM 3.6 mmol/L (3.5-5.1)
[2017-01-11 13:40] LABS: BASO % 0.4 %; BASO ABS # 0.08 K/uL (0-0.2); COMPLETE YES; HEMATOCRIT 26.4 % (37-47); IG% 6.3 %; LYMPH % 17.9 %; LYMPH ABS # 3.81 K/uL (1.2-3.4); MEAN CELL VOLUME 86.6 fL (80-100); MEAN CORPUSCULAR HEMOGLOBIN 28.2 pg (25-34); MONO % 5.1 %; NEUT % 70.3 %; POLYCHROMASIA 1+; RED BLOOD COUNT 3.05 M/uL (4.2-5.4); TEAR DROP CELLS 1+; TOXIC GRANULATION 1+; WHITE BLOOD COUNT 21.32 K/uL (4.8-10.8)
[2017-01-11] MEDS ORDERED: NURSING VERBAL MED ORDER ONE ×2 (13:45→21:30)
[2017-01-11] MEDS ORDERED: ONDANSETRON INJ 2 MG/ML 2 ML VIAL IV PRN (13:45)
--- NOTE | 2017-01-11 14:24 | Cardiology Consultation ---
Cardiology Consultation Date of Consultation: Jan 11, 2017. Pt evaluation today including: conversation w/ patient, physical exam, lab review, review of studies, review of inpatient medication list History of Present Illness This is a 76-year-old woman who has a history of aortic stenosis and coronary artery disease, she had catheterization here in November of 2014 which demonstrated aortic stenosis, medical grade coronary artery disease and she was referred for valve replacement. This was performed on 08/16/15 with 23 mm Leggett II porcine valve, I believe only a valve replacement was performed (no bypass surgery) however postoperatively she required pacemaker implantation, this is a [employer] pacemaker implanted on 08/22/2015. She then went to [facility] for rehabilitation. She was in sinus rhythm preoperatively, however she remained in atrial fibrillation post-operatively. We had planned cardioversion some time ago however we had difficulty with anticoagulation. We did perform electrical cardioversion 08/27/2016, however she returned to atrial fibrillation. We have been maintaining her on anticoagulation and rate control however she had diverticulitis requiring several hospitalizations toward the end of 2015. She also had a lot of difficulty with bruising on Xarelto and that was discontinued. I believe she stopped her beta tripp rather than Xarelto prior to dental work, resulting in a high heart rate and some recurrent bleeding from her surgical site. She developed symptoms of tiredness and fatigue and she then came to the emergency room and was admitted. Past Medical/Surgical History (1) Chronic diastolic (congestive) heart failure (2) Atrial fibrillation with RVR (3) Ductal carcinoma in situ (DCIS) of left breast (4) Pacemaker (5) Emphysema of lung (6) S/P AVR (aortic valve replacement) (7) H/O aortic valve replacement Family History Cancer Diabetes mellitus Heart disease Hypertension Social History Smoking Status: Never Smoker History of Alcohol Use: No Review of Systems Constitutional: + fatigue, + weakness, No fever, No weight loss Respiratory: + shortness of breath, No cough, No dyspnea on exertion, No wheezing Cardiac: + see HPI, No PND, No chest pain, No edema, No orthopnea, No palpitations Abdomen: No GI bleeding, No diarrhea, No nausea, No pain, No vomiting Female : No problem reported Neurologic: No balance problems, No numbness/tingling, No paralysis, No weakness Heme: No abnormal bleeding/bruising, No clotting problems Endo: No fatigue Skin: No problem reported All Other Systems: Reviewed and Negative Allergies Coded Allergies: Atorvastatin (Verified Allergy, Severe, SWELLING, 01/22/17) Sulfa Antibiotics (Verified Allergy, Severe, MOUTH AND TOUNGE SWELL, ) Angiotensin Receptor Blockers (Verified Allergy, Unknown, Unknown, 01/22/17 ) Losartan (Verified Allergy, Unknown, swelling/reflux, 01/22/17) Morphine and Related (Verified Allergy, Unknown, Unknown, 01/22/17) Quinolones (Verified Allergy, Unknown, Unknown, 01/22/17) Statins (Verified Allergy, Unknown, Unknown, 01/22/17) Sulfonylureas (Verified Allergy, Unknown, Unknown, 01/22/17) Glipizide (Verified Adverse Reaction, Intermediate, NAUSEA, 01/22/17) Metformin (Verified Adverse Reaction, Intermediate, vomiting, 01/22/17) Nitrofurantoin (Verified Adverse Reaction, Intermediate, dizziness,nausea vomiting, 01/22/17) BROWN Inhibitors (Verified Adverse Reaction, Mild, COUGH, 01/22/17) Levofloxacin (Verified Adverse Reaction, Mild, NAUSEA, 01/22/17) Lisinopril (Verified Adverse Reaction, Mild, cough, 01/22/17) Pravastatin (Verified Adverse Reaction, Mild, NAUSEA, 01/22/17) Cephalexin (Verified Adverse Reaction, Unknown, GI SYMPTOMS, 01/22/17) Oxycodone (Verified Adverse Reaction, Unknown, DELIRIUM, 01/22/17) Medications Current Inpatient Medications Medications (Trade) Dose Ordered Sig/Vibha Route Start Time Stop Time Status Last Admin Dose Admin Ioversol (Optiray 320) 100 ml UD PRN IV 01/11/17 00:00 01/15/17 00:00 Albuterol (Ventolin Hfa Inhaler) 2 puffs Q6H PRN INH 01/11/17 03:00 02/10/17 02:59 Allopurinol (Zyloprim Tab) 400 mg DAILY PO 01/11/17 09:00 02/10/17 08:59 01/11/17 08:01 400 MG Aspirin (Ecotrin Tab) 81 mg DAILY PO 01/11/17 09:00 02/10/17 08:59 01/11/17 08:02 81 MG Budesonide/ Formoterol Fumarate (Symbicort 160/ 4.5 Inh) 2 puffs BID INH 01/11/17 09:00 02/10/17 08:59 01/11/17 08:03 2 PUFFS Clopidogrel Bisulfate (plAVix TAB) 75 mg DAILY PO 01/11/17 09:00 02/10/17 08:59 01/11/17 07:58 75 MG Docusate Sodium (coLACE CAP) 100 mg BID PO 01/11/17 09:00 02/10/17 08:59 01/11/17 08:01 100 MG Ferrous Sulfate (Feosol Tab) 325 mg DAILY PO 01/11/17 09:00 02/10/17 08:59 01/11/17 07:57 325 MG Guaifenesin (Mucinex Contr Rel Tab) 600 mg Q12 PO 01/11/17 09:00 02/10/17 08:59 01/11/17 07:59 600 MG Insulin Human NPH (novoLIN-N NPH) 10 units DAILY SC 01/11/17 09:00 02/10/17 08:59 01/11/17 09:00 10 UNITS Albuterol/ Ipratropium (Duoneb) 3 ml Q6H PRN INH 01/11/17 03:00 02/10/17 02:59 Levothyroxine Sodium (Synthroid Tab) 75 mcg DAILYBB PO 01/11/17 06:00 02/10/17 06:59 01/11/17 05:42 75 MCG Loratadine (Claritin Tab) 10 mg DAILY PO 01/11/17 09:00 02/10/17 08:59 01/11/17 08:00 10 MG Metoprolol Succinate (Toprol Xl Tab) 25 mg BID PO 01/11/17 09:00 02/10/17 08:59 01/11/17 07:58 25 MG Oxybutynin Chloride (Ditropan Tab) 5 mg BID PO 01/11/17 09:00 02/10/17 08:59 01/11/17 08:00 5 MG Pantoprazole Sodium (Protonix Tab) 40 mg DAILY PO 01/11/17 09:00 02/10/17 08:59 01/11/17 07:51 40 MG Ranitidine HCl (zANTac TAB) 150 mg BID PO 01/11/17 09:00 02/10/17 08:59 01/11/17 07:58 150 MG Sertraline HCl (Zoloft Tab) 25 mg DAILY PO 01/11/17 09:00 02/10/17 08:59 01/11/17 07:56 25 MG Sucralfate (Carafate Tab) 1 gm ACHS PO 01/11/17 07:00 02/10/17 06:59 01/11/17 12:19 1 GM Magnesium Oxide (Mag-Ox Tab) 400 mg BID PO 01/11/17 09:00 02/10/17 08:59 01/11/17 07:59 400 MG Artificial Tears (Artificial Tears) 1 drops QID OPB 01/11/17 09:00 02/10/17 08:59 01/11/17 12:19 1 DROPS Lactobacillus Acidophilus 4 tab 4 tab TIDM PO 01/11/17 07:30 02/10/17 07:59 01/11/17 12:19 4 TAB Potassium Chloride/Sodium Chloride (Nss + 20meq KCl 1000ml) 1,000 ml @ 100 mls/hr Q10H IV 01/11/17 04:45 02/10/17 04:44 01/11/17 05:41 100 MLS/HR Acetaminophen (Tylenol Tab) 650 mg Q4H PRN PO 01/11/17 03:00 02/10/17 02:59 Zolpidem Tartrate 5 mg 5 mg HSZ PRN PO 01/11/17 03:00 02/10/17 02:59 Piperacillin Sod/ Tazobactam Sod/ Dextrose (Zosyn Iv/D5 100ml) 120 ml @ 28.75 mls/ hr Q8H IV 01/11/17 06:00 01/21/17 05:59 01/11/17 05:41 28.75 MLS/HR Piperacillin Sod/ Tazobactam Sod (Consult) 1 ea UD PRN N/A 01/11/17 03:45 02/10/17 03:44 Ondansetron HCl (Zofran Inj) 4 mg Q8 PRN IV 01/11/17 13:45 02/10/17 13:44 01/11/17 13:59 4 MG Physical Exam Vital Signs Past 12 Hours Date Time Temp Pulse Resp B/P Pulse Ox O2 Delivery O2 Flow Rate FiO2 01/11/17 11:46 100 Room Air 01/11/17 10:27 36.5 91 20 118/79 98 Room Air 01/11/17 08:00 100 Room Air 01/11/17 07:45 36.4 98 20 136/88 100 01/11/17 04:50 36.4 89 16 102/71 98 Room Air 01/11/17 04:05 110 21 96/64 99 01/11/17 03:34 127 01/11/17 02:54 118 24 115/64 96 Room Air Constitutional: General Apperance: heathly-appearing Level of Distress: NAD Psychiatric: Mental Status: active & alert Head: normocephalic Eyes: EOM: EOMI ENMT: normal ENT inspection, hearing grossly normal Neck: supple, no masses Lungs: Respiratory effort: no dyspnea, good air movement Auscultation: breath sounds normal, no wheezing Cardiovascular: Heart Auscultation: no murmurs, no rubs, no gallops, irregular rate rhythm Peripheral Pulses: Bruits: none appreciated Abdomen: Bowel Sounds: normal Inspection & Palpation: soft, no tenderness, guarding & rebound, no masses Musculoskeletal: normal strength (5/5 throughout) Extremities: no edema Neurologic: Cranial Nerves: grossly intact Sensation: grossly intact Data Laboratory Results: Last 24 Hours Test 01/10/17 22:35 01/10/17 23:06 01/11/17 06:40 01/11/17 11:40 White Blood Count 21.64 K/uL Red Blood Count 3.25 M/uL Hemoglobin 9.1 g/dL Hematocrit 27.8 % Mean Corpuscular Volume 85.5 fL Mean Corpuscular Hemoglobin 28.0 pg Mean Corpuscular Hemoglobin Concent 32.7 g/dl Platelet Count 377 K/uL Mean Platelet Volume 8.8 fL Neutrophils (%) (Auto) 74.1 % Lymphocytes (%) (Auto) 13.4 % Monocytes (%) (Auto) 4.9 % Eosinophils (%) (Auto) 0.0 % Basophils (%) (Auto) 0.4 % Neutrophils # (Auto) 16.03 K/uL Lymphocytes # (Auto) 2.89 K/uL Monocytes # (Auto) 1.07 K/uL Eosinophils # (Auto) 0.00 K/uL Basophils # (Auto) 0.09 K/uL RDW Standard Deviation 58.0 fL RDW Coefficient of Variation 18.4 % Immature Granulocyte % (Auto) 7.2 % Immature Granulocyte # (Auto) 1.56 K/uL Nucleated RBC Absolute Count (auto) 0.04 K/uL Nucleated Red Blood Cells % 0.2 % Polychromasia 1+ Tear Drop Cells 1+ Prothrombin Time 11.5 SECONDS Prothromb Time International Ratio 1.1 Activated Partial Thromboplast Time 33.9 SECONDS Partial Thromboplastin Ratio 1.3 Sodium Level 136 mmol/L Potassium Level 3.4 mmol/L Chloride Level 101 mmol/L Carbon Dioxide Level 25 mmol/L Anion Gap 10.0 mmol/L Blood Urea Nitrogen 36 mg/dl Creatinine 0.97 mg/dl Est Creatinine Clear Calc Drug Dose 49.1 ml/min Estimated GFR () 66.2 Estimated GFR (Non- 57.1 BUN/Creatinine Ratio 37.0 Random Glucose 88 mg/dl Calcium Level 8.5 mg/dl Magnesium Level 2.4 mg/dl Total Bilirubin 0.3 mg/dl Aspartate Amino Transf (AST/SGOT) 8 U/L Alanine Aminotransferase (ALT/SGPT) 10 U/L Alkaline Phosphatase 107 U/L Total Creatine Kinase 13 U/L Creatine Kinase MB 1.1 ng/ml Creatine Kinase MB Ratio 8.5 Total Protein 6.0 gm/dl Albumin 2.4 gm/dl Globulin 3.6 gm/dl Albumin/Globulin Ratio 0.7 Lipase 57 U/L Thyroid Stimulating Hormone (TSH) 3.150 uIu/ml Urine Color YELLOW Urine Appearance CLEAR Urine pH 7.0 Urine Specific [place] 1.005 Urine Protein NEG Urine Glucose (UA) NEG Urine Ketones NEG Urine Occult Blood NEG Urine Nitrite NEG Urine Bilirubin NEG Urine Urobilinogen NEG Urine Leukocyte Esterase TRACE Urine WBC (Auto) 5-10 /hpf Urine RBC (Auto) 0-4 /hpf Urine Hyaline Casts (Auto) 1-5 /lpf Urine Epithelial Cells (Auto) 10-20 /lpf Urine Bacteria (Auto) NEG Bedside Glucose 77 mg/dl 78 mg/dl Test 01/11/17 12:40 White Blood Count 21.32 K/uL Red Blood Count 3.05 M/uL Hemoglobin 8.6 g/dL Hematocrit 26.4 % Mean Corpuscular Volume 86.6 fL Mean Corpuscular Hemoglobin 28.2 pg Mean Corpuscular Hemoglobin Concent 32.6 g/dl Platelet Count 390 K/uL Mean Platelet Volume 8.9 fL Neutrophils (%) (Auto) 70.3 % Lymphocytes (%) (Auto) 17.9 % Monocytes (%) (Auto) 5.1 % Eosinophils (%) (Auto) 0.0 % Basophils (%) (Auto) 0.4 % Neutrophils # (Auto) 15.00 K/uL Lymphocytes # (Auto) 3.81 K/uL Monocytes # (Auto) 1.09 K/uL Eosinophils # (Auto) 0.00 K/uL Basophils # (Auto) 0.08 K/uL RDW Standard Deviation 59.6 fL RDW Coefficient of Variation 18.9 % Immature Granulocyte % (Auto) 6.3 % Immature Granulocyte # (Auto) 1.34 K/uL Nucleated RBC Absolute Count (auto) 0.06 K/uL Nucleated Red Blood Cells % 0.3 % Toxic Granulation 1+ Polychromasia 1+ Tear Drop Cells 1+ Sodium Level 141 mmol/L Potassium Level 3.6 mmol/L Chloride Level 108 mmol/L Carbon Dioxide Level 23 mmol/L Anion Gap 10.0 mmol/L Blood Urea Nitrogen 33 mg/dl Creatinine 1.00 mg/dl Est Creatinine Clear Calc Drug Dose 46.1 ml/min Estimated GFR () 63.8 Estimated GFR (Non- 55.1 BUN/Creatinine Ratio 33.1 Random Glucose 55 mg/dl Calcium Level 8.7 mg/dl Chemistry Specimen Hemolysis Telemetry reviewed: Atrial fibrillation, on admission a rapid heart rate however now well rate controlled. Assessment & Plan 1. Dual-chamber pacemaker: Clinically functioning well, I don't believe it was interrogated but probably does not need to be at this time. 2. Aortic valve replacement: On exam her aortic valve is functioning well, it was working well on echo in February 2016. 3. Coronary disease: She had coronary disease at catheterization, I do not believe she had bypass surgery at the time of her valve replacement. She does not appear to have symptoms related to it however. 4. Atrial fibrillation: She is now in permanent atrial fibrillation and we are not attempting to control the arrhythmia, we are planning on anticoagulation and rate control. At the moment her heart rate is under good control on low- dose metoprolol. I would continue beta blockers for rate control and anticoagulation if possible. Thank you for allowing me to participate in her care.
--- NOTE | 2017-01-11 16:05 | Hospitalist Progress Note ---
Hospitalist Progress Note Date of Service Jan 11, 2017. (Pippa Rucker ., ANUC) Subjective Pt evaluation today including: conversation w/ patient, physical exam, chart review, lab review, review of studies, conversation w/ behavioral health consultant Pain: 3/10 dull lower abdominal pain PO Intake: NPO Voiding: no voiding problems Patient reports feeling much better. She states that she still feels weak and fatigued, but that this is improved from yesterday. She denies any lightheadedness or palpitations. SHe does complain of a mild 3/10 dull aching pain in her lower abdomen. She states that she was recently diagnosed with a UTI that was being treated with Cipro as an outpatient, which seemed to be helping. She states that the pain does not radiate and is relieved somewhat after voiding. She no longer complains of dysuria or hematuria. The patient denies fevers, chills, sweats, chest pain, palpitations, claudication, cough, wheezing, shortness of breath, nausea, vomiting, dysuria, hematuria, urinary retention, paralysis, weakness, numbness and tingling. Additional Comments: See HPI for pertinent positives and negatives. All other systems reviewed and negative. (Pippa Rucker ., ANUC) Objective Vital Signs Date Time Temp Pulse Resp B/P Pulse Ox O2 Delivery O2 Flow Rate FiO2 01/11/17 11:46 100 Room Air 01/11/17 10:27 36.5 91 20 118/79 98 Room Air 01/11/17 08:00 100 Room Air 01/11/17 07:45 36.4 98 20 136/88 100 01/11/17 04:50 36.4 89 16 102/71 98 Room Air 01/11/17 04:05 110 21 96/64 99 01/11/17 03:34 127 01/11/17 02:54 118 24 115/64 96 Room Air 01/11/17 02:02 124 20 91/47 97 Room Air 01/11/17 01:21 123 20 91/64 98 Room Air 01/11/17 01:04 105 01/10/17 23:40 121 20 117/68 98 Room Air 01/10/17 23:19 113 22 100 Room Air 01/10/17 22:43 98 Room Air 01/10/17 21:55 116 18 139/83 98 01/10/17 21:20 108 01/10/17 20:56 36.6 87 20 124/70 98 Room Air (Pippa Rucker ., PA-C) Physical Exam General Appearance: WD/WN, no apparent distress, + obese Eyes: normal inspection, PERRL, EOMI ENT: normal ENT inspection, hearing grossly normal, pharynx normal (no bleeding present ) Neck: supple, no JVD, trachea midline Respiratory/Chest: normal breath sounds, no respiratory distress, + crackles ( bases R>L) Cardiovascular: no gallop, no murmur, + irregularly irregular (rate controlled) Abdomen: normal bowel sounds, non tender (palpation did not produce any tenderness/no effect on her subjective pain), soft Extremities: non-tender, normal inspection, no pedal edema Neurologic/Psychiatric: alert, normal mood/affect, oriented x 3 Skin: normal color, warm/dry, no rash (Pippa Rucker ., PA-C) Laboratory Results Last 24 Hours Test 01/10/17 22:35 01/10/17 23:06 01/11/17 06:40 01/11/17 11:40 White Blood Count 21.64 K/uL Red Blood Count 3.25 M/uL Hemoglobin 9.1 g/dL Hematocrit 27.8 % Mean Corpuscular Volume 85.5 fL Mean Corpuscular Hemoglobin 28.0 pg Mean Corpuscular Hemoglobin Concent 32.7 g/dl Platelet Count 377 K/uL Mean Platelet Volume 8.8 fL Neutrophils (%) (Auto) 74.1 % Lymphocytes (%) (Auto) 13.4 % Monocytes (%) (Auto) 4.9 % Eosinophils (%) (Auto) 0.0 % Basophils (%) (Auto) 0.4 % Neutrophils # (Auto) 16.03 K/uL Lymphocytes # (Auto) 2.89 K/uL Monocytes # (Auto) 1.07 K/uL Eosinophils # (Auto) 0.00 K/uL Basophils # (Auto) 0.09 K/uL RDW Standard Deviation 58.0 fL RDW Coefficient of Variation 18.4 % Immature Granulocyte % (Auto) 7.2 % Immature Granulocyte # (Auto) 1.56 K/uL Nucleated RBC Absolute Count (auto) 0.04 K/uL Nucleated Red Blood Cells % 0.2 % Polychromasia 1+ Tear Drop Cells 1+ Prothrombin Time 11.5 SECONDS Prothromb Time International Ratio 1.1 Activated Partial Thromboplast Time 33.9 SECONDS Partial Thromboplastin Ratio 1.3 Sodium Level 136 mmol/L Potassium Level 3.4 mmol/L Chloride Level 101 mmol/L Carbon Dioxide Level 25 mmol/L Anion Gap 10.0 mmol/L Blood Urea Nitrogen 36 mg/dl Creatinine 0.97 mg/dl Est Creatinine Clear Calc Drug Dose 49.1 ml/min Estimated GFR () 66.2 Estimated GFR (Non- 57.1 BUN/Creatinine Ratio 37.0 Random Glucose 88 mg/dl Calcium Level 8.5 mg/dl Magnesium Level 2.4 mg/dl Total Bilirubin 0.3 mg/dl Aspartate Amino Transf (AST/SGOT) 8 U/L Alanine Aminotransferase (ALT/SGPT) 10 U/L Alkaline Phosphatase 107 U/L Total Creatine Kinase 13 U/L Creatine Kinase MB 1.1 ng/ml Creatine Kinase MB Ratio 8.5 Total Protein 6.0 gm/dl Albumin 2.4 gm/dl Globulin 3.6 gm/dl Albumin/Globulin Ratio 0.7 Lipase 57 U/L Thyroid Stimulating Hormone (TSH) 3.150 uIu/ml Urine Color YELLOW Urine Appearance CLEAR Urine pH 7.0 Urine Specific [place] 1.005 Urine Protein NEG Urine Glucose (UA) NEG Urine Ketones NEG Urine Occult Blood NEG Urine Nitrite NEG Urine Bilirubin NEG Urine Urobilinogen NEG Urine Leukocyte Esterase TRACE Urine WBC (Auto) 5-10 /hpf Urine RBC (Auto) 0-4 /hpf Urine Hyaline Casts (Auto) 1-5 /lpf Urine Epithelial Cells (Auto) 10-20 /lpf Urine Bacteria (Auto) NEG Bedside Glucose 77 mg/dl 78 mg/dl Test 01/11/17 12:40 White Blood Count 21.32 K/uL Red Blood Count 3.05 M/uL Hemoglobin 8.6 g/dL Hematocrit 26.4 % Mean Corpuscular Volume 86.6 fL Mean Corpuscular Hemoglobin 28.2 pg Mean Corpuscular Hemoglobin Concent 32.6 g/dl Platelet Count 390 K/uL Mean Platelet Volume 8.9 fL Neutrophils (%) (Auto) 70.3 % Lymphocytes (%) (Auto) 17.9 % Monocytes (%) (Auto) 5.1 % Eosinophils (%) (Auto) 0.0 % Basophils (%) (Auto) 0.4 % Neutrophils # (Auto) 15.00 K/uL Lymphocytes # (Auto) 3.81 K/uL Monocytes # (Auto) 1.09 K/uL Eosinophils # (Auto) 0.00 K/uL Basophils # (Auto) 0.08 K/uL RDW Standard Deviation 59.6 fL RDW Coefficient of Variation 18.9 % Immature Granulocyte % (Auto) 6.3 % Immature Granulocyte # (Auto) 1.34 K/uL Nucleated RBC Absolute Count (auto) 0.06 K/uL Nucleated Red Blood Cells % 0.3 % Toxic Granulation 1+ Polychromasia 1+ Tear Drop Cells 1+ Sodium Level 141 mmol/L Potassium Level 3.6 mmol/L Chloride Level 108 mmol/L Carbon Dioxide Level 23 mmol/L Anion Gap 10.0 mmol/L Blood Urea Nitrogen 33 mg/dl Creatinine 1.00 mg/dl Est Creatinine Clear Calc Drug Dose 46.1 ml/min Estimated GFR () 63.8 Estimated GFR (Non- 55.1 BUN/Creatinine Ratio 33.1 Random Glucose 55 mg/dl Calcium Level 8.7 mg/dl Chemistry Specimen Hemolysis (Pippa Rucker ., PAManfredC) Assessment and Plan 76 y/o female A-fib with RVR--now rate controlled -Admitted to telemetry -Echo ordered -EKG q am -Continue metoprolol succinate 25 mg PO BID -Consult cardiology, appreciate recs -Xarelto held due to bleeding s/p recent dental procedure -NSS w/ KCl 20 mEq 100 cc/hr. Pt has poor oral intake due to dental procedure, hypotensive on arrival Chronic diverticulitis with possible fistulous connection to the skin surface/ fluid collection between the sigmoid colon and the bladder -Continue Zosyn IV for now -Blood cultures pending -Obtain medical records from pt's surgeon -Abd/pelvis CT shows abscess is stable as well as fistulous tract. Sigmoid diverticulitis stable, possibly even improved. Recent UTI, lower abdominal pain -Check urine culture Bladder spasm -Continue Ditropan 5 mg PO BID GERD -Continue Carafate 1 gm PO QID and Protonix 40 mg PO qd Diabetes mellitus--Last HgbA1c checked 08/16/16 was 6.8 -Novolin N 10 units SC qd -Insulin sliding scale -Check BSGs q ac and qhs -Recheck HgbA1c CHF -Hold furosemide 80 mg PO BID due to IVF COPD -Continue Symbicort 2 puffs inh BID, Ventolin prn and DuoNeb prn Depression -Continue sertraline 25 mg PO qhs Hypothyroidism -Continue Synthroid 75 mcg PO qd Gout -Continue allopurinol 100 mg PO qd DVT prophylaxis -Hold chemical prophylaxis for now due to bleeding -MABLE reno and SCDs Code Status -Level I, FULL RESUSCITATION STATUS (Pippa Rucker, SONU) Reviewed: Pt Seen/Exam by Me, TITUS Notes, Labs, RAD (Mercedes Mcfadden MD) History Physician Biological Sciences Professor Supervision Note: I interviewed and examined the patient. Discussed with SUE Rucker and agree with findings and plan as documented in the note. Any exceptions or clarifications are listed here: [place] [facility] [place] [facility] [place] Had chronic diverticular abscess with drain placement and removal 1-2 mo ago, was to return tomorrow for f/u with [facility] to see what next step is. Has chronic drainage from fistulous tract to the skin. She came in for her dental bleeding and found to be in rapid A-fib. Rates better after restarting metoprolol. Holding Xarelto and bleeding continues tonight. Vitals reviewed Obese OP with active oozing of blood right upper molar region, clot formation in place irreg irreg mild tachy CTAB no wcr Abd morbidly obese, fistulous tract with dressing c/d/i, nontender Ext no edema -Oral bleeding-continue to hold Xarelto, is also on DAPT for h/o stents/CAD -conult her OMFS Dr. Stevens -restart Amicar soln to see if helps bleeding GAGANDEEP-improved after restarting metoprolol -restart Xarelto when bleeding stopped Fistula, chronic abscess, chronic diverticulitis -[place] [facility] [place] -can stop IV abx tomorrow after confirm outptatent urine culture results/date ( was on Cipro prior to admission) Documented By: Mercedes Mcfadden (Mercedes Mcfadden MD)
[2017-01-11] MEDS ORDERED: AMINOCAPROIC (AMICAR) 5% MOUTHWASH PO PRN (21:15)
[2017-01-11] MEDS ORDERED: AMINOCAPROIC ACID INJ 5,000 MG, WATER, STERILE FOR INJ 80 ML PO SCH ×2 (22:00)
[2017-01-12] VITALS (15 sets, daily range): BP systolic 90–133; BP diastolic 61–82; PULSE 56–92; TEMP 36.4–37; O2SAT 92–100; Ht 152.4 cm; Wt 83.8 kg
[2017-01-12] MEDS: ALBUTEROL HFA 8 GM INHALER INH PRN ×2 (00:15→06:01)
[2017-01-12] MEDS: LEVOTHYROXINE 75 MCG TAB PO SCH (05:45)
[2017-01-12] MEDS: PIPERACILL/TAZOBAC IV 4.5 GM in DEXTROSE 5% 100ML 100 ML IV SCH (06:09)
[2017-01-12 06:10] LABS: ESTIMATED AVERAGE GLUCOSE 126 mg/dl; HA1C FLAG Normal (Normal)
[2017-01-12 06:35] LABS: BASO % 0.3 %; BASO ABS # 0.05 K/uL (0-0.2); HEMATOCRIT 23.8 % (37-47); LYMPH ABS # 3.49 K/uL (1.2-3.4); MEAN CELL VOLUME 88.8 fL (80-100); MEAN CORPUSCULAR HEMOGLOBIN 27.6 pg (25-34); MEAN CORPUSCULAR HGB CONC 31.1 g/dl (32-36); MEAN PLATELET VOLUME 9.2 fL (7.4-10.4); MONO % 6.4 %; NEUT % 67.3 %; PLATELET COUNT 374 K/uL (130-400); RED BLOOD COUNT 2.68 M/uL (4.2-5.4); WHITE BLOOD COUNT 16.65 K/uL (4.8-10.8)
[2017-01-12 06:53] LABS: BUN/CREATININE RATIO 35.1 (10-20); CREATININE 0.88 mg/dl (0.60-1.20); POTASSIUM 3.3 mmol/L (3.5-5.1)
[2017-01-12] MEDS: NSS + 20MEQ KCL 1000ML 1,000 ML IV SCH (07:16)
[2017-01-12 07:49] LABS: ANISOCYTOSIS PRESENT; COMPLETE YES
[2017-01-12] MEDS: METOPROLOL SUCC 25MG EXT REL TAB PO SCH ×2 (07:52→20:02)
[2017-01-12] MEDS: DOCUSATE SODIUM 100 MG CAP PO SCH ×2 (07:53→20:11)
[2017-01-12] MEDS: ALLOPURINOL 100 MG TAB PO SCH (07:53)
[2017-01-12] MEDS: OXYBUTYNIN CHLORIDE 5 MG TAB PO SCH ×2 (07:54→20:11)
[2017-01-12] MEDS: LORATADINE 10 MG TAB PO SCH (07:54)
[2017-01-12] MEDS: MAGNESIUM OXIDE 400 MG TAB PO SCH ×2 (07:54→20:11)
[2017-01-12] MEDS: BUDESONIDE/FORMOTEROL FUMARATE 160/4.5 60 PUFFS/INHALER INH SCH ×2 (07:55→20:12)
[2017-01-12] MEDS: ARTIFICIAL TEARS OP SOLN OPB SCH ×8 (07:55→20:11)
[2017-01-12] MEDS: INSULIN HUMAN NPH SC SCH (07:56)
[2017-01-12] MEDS: LACTOBACILLUS ACIDOPHILUS (FLORANEX) TAB PO SCH ×3 (08:00→16:58)
[2017-01-12] MEDS: SUCRALFATE 1 GM TAB PO SCH ×4 (08:01→20:11)
[2017-01-12] MEDS: PANTOprazole SOD 40 MG TAB PO SCH (08:01)
[2017-01-12] MEDS: SERTRALINE HCL 50 MG TAB PO SCH (08:02)
[2017-01-12] MEDS: RANITIDINE HCL 150 MG TAB PO SCH ×2 (08:02→20:10)
[2017-01-12] MEDS: FERROUS SULFATE 325 MG TAB PO SCH (08:03)
[2017-01-12] MEDS: GUAIFENESIN 600 MG TABCR PO SCH ×2 (08:03→20:11)
--- NOTE | 2017-01-12 08:15 | Clinical Documentation Query ---
ARUNA Nix : CLINICAL DOCUMENTATION QUERIES QUERY 1 OF 2 Admission hemoglobin and hematocrit 9.1 g/dl and 27.8%. This a.m (01/12) values further declined to 7.4 g/dl and 23.8%. ENT has been consulted, she is being treated with aminocaproic acid, is being transfused 2 units of PRBC's, and monitored with serial hematology. Please clarify as clinically appropriate. Thank you. In your clinical opinion is this patient being managed for: ( x ) Acute blood loss anemia due to postoperative bleeding s/p dental procedure ( ) Other explanation of clinical findings (Please Explain) ( ) Unable to determine (Please Define) ( ) Need to Discuss ( ) Not Agree The medical record reflects the following clinical findings, treatment, and risk factors. Clinical Indicators: As above Treatment:ENT has been consulted, she is being treated with aminocaproic acid, and monitored with serial hematology. Please clarify as clinically appropriate. Risk Factors: Xarelto use in the setting of teeth extraction. QUERY 2 OF 2 Patient is a 76 year old female admitted for evaluation and treatment of postprocedural bleeding, weakness, and SOB. Documentation includes CHF, not otherwise specified. Historical EMR documentation includes a diagnosis of chronic diastolic CHF. Please clarify as clinically appropriate. Thank you. In your clinical opinion is this patient being managed for: ( x) Chronic diastolic congestive heart failure ( ) Other explanation of clinical findings (Please Explain) ( ) Unable to determine (Please Define) ( ) Need to Discuss ( ) Not Agree The medical record reflects the following clinical findings, treatment, and risk factors. Clinical Indicators: As above Treatment: Home regimen includes Lasix 80 mg PO BID Risk Factors: Age, atrial fibrillation, COPD Please clarify and document your clinical opinion in the progress notes and discharge summary. Terms such as "probable", "suspected", "likely", "questionable", "possible", or "still to be ruled out" are acceptable. IF IN AGREEMENT, YOU MUST DOCUMENT ABOVE DIAGNOSTIC STATEMENT IN DAILY PROGRESS NOTES AND DISCHARGE SUMMARY. This document is not part of the patient's record. Thank You, Anselmo Christiansen, RN [phone]
--- NOTE | 2017-01-12 08:18 | Clinical Documentation Query ---
MISHEL Tate : CLINICAL DOCUMENTATION QUERIES QUERY 1 OF 2 Admission hemoglobin and hematocrit 9.1 g/dl and 27.8%. This a.m (01/12) values further declined to 7.4 g/dl and 23.8%. ENT has been consulted, she is being treated with aminocaproic acid, is being transfused 2 units of PRBC's, and monitored with serial hematology. Please clarify as clinically appropriate. Thank you. In your clinical opinion is this patient being managed for: ( ) Acute blood loss anemia due to postoperative bleeding s/p dental procedure ( ) Other explanation of clinical findings (Please Explain) ( ) Unable to determine (Please Define) ( ) Need to Discuss ( ) Not Agree The medical record reflects the following clinical findings, treatment, and risk factors. Clinical Indicators: As above Treatment:ENT has been consulted, she is being treated with aminocaproic acid, and monitored with serial hematology. Please clarify as clinically appropriate. Risk Factors: Xarelto use in the setting of teeth extraction. QUERY 2 OF 2 Patient is a 76 year old female admitted for evaluation and treatment of postprocedural bleeding, weakness, and SOB. Documentation includes CHF, not otherwise specified. Historical EMR documentation includes a diagnosis of chronic diastolic CHF. Please clarify as clinically appropriate. Thank you. In your clinical opinion is this patient being managed for: ( ) Chronic diastolic congestive heart failure ( ) Other explanation of clinical findings (Please Explain) ( ) Unable to determine (Please Define) ( ) Need to Discuss ( ) Not Agree The medical record reflects the following clinical findings, treatment, and risk factors. Clinical Indicators: As above Treatment: Home regimen includes Lasix 80 mg PO BID Risk Factors: Age, atrial fibrillation, COPD Please clarify and document your clinical opinion in the progress notes and discharge summary. Terms such as "probable", "suspected", "likely", "questionable", "possible", or "still to be ruled out" are acceptable. IF IN AGREEMENT, YOU MUST DOCUMENT ABOVE DIAGNOSTIC STATEMENT IN DAILY PROGRESS NOTES AND DISCHARGE SUMMARY. This document is not part of the patient's record. Thank You, Anselmo Christiansen, RN [phone]
[2017-01-12] MEDS: ASPIRIN 81 MG ECTAB PO SCH (09:00)
[2017-01-12] MEDS: CLOPIDOGREL BISULFATE 75 MG TAB PO SCH (09:00)
[2017-01-12] MEDS ORDERED: FUROSEMIDE INJ 40 MG in SYRINGE 0 ML IV ONE (12:00)
--- NOTE | 2017-01-12 13:11 | CONSULTATION REPORT ---
DATE OF CONSULTATION: 01/12/2017 CHIEF COMPLAINT: Recent oral bleeding. HISTORY OF PRESENT ILLNESS: Katya is a 76-year-old woman. Ten days ago, she saw my partner Dr. Stevens and had 2 right-sided second molars, tooth #2 and tooth #31 removed. She did not have any initial complications after those extractions but presented yesterday with acute right oral bleeding. It was initially managed in the Emergency Department with gauze packing and Amicar. She was admitted because she was found to be in exacerbation of her atrial fibrillation with a rapid ventricular response and then I was asked to see her to examine her surgery sites. There was a note made that there was possibly a medication error on the patient's part where she stopped her metoprolol rather than her Xarelto. I reviewed documentation from her appointment in our office on December. At that point, she had been instructed and she complied with holding her Plavix for 7 days preop and holding her Xarelto for 2 days postop. Her procedure was uneventful and she was instructed to restart her anticoagulation therapy after 24 hours postop and followup phone call from our office 3 days later found that she was doing well without any bleeding at that point in time. For the patient's past medical history and details of her current admission, I will refer you to the documentation in her electronic medical record. On exam, the patient is seen at bedside in no distress. There is good hemostasis with no active bleeding in either of the surgical sites and well formed clot at the maxillary right surgical site. The remainder of her head and neck examination is unremarkable. IMPRESSION: Postoperative bleeding from the right maxillary extraction site, 10 days post procedure. This has now stopped and there is good hemostasis at that site. RECOMMENDATIONS: I would use the topical Amicar p.r.n. if she develops further bleeding but if there is no further bleeding, she probably does not need to continue the Amicar at this point. Saline oral rinses after eating would be advised and she should have a mechanical soft diet. I feel that gradually resuming her oral anticoagulation medications as medically necessary is fine at this point. I would avoid systemic heparin or Lovenox in her case. I would pose the question to her medical team as to whether she requires all 3 anticoagulation, aspirin, Plavix, and Xarelto. I will leave that to the discretion of her cardiology and medical doctors. Please alert me if there is any new bleeding. At this point, I think the risk of new oral bleeding is fairly minimal. Thank you very much for involving me in this patient's care.
--- NOTE | 2017-01-12 13:41 | Hospitalist Progress Note ---
Hospitalist Progress Note Date of Service Jan 12, 2017. (Pippa Rucker ., SUE-C) Subjective Pt evaluation today including: conversation w/ patient, physical exam, chart review, lab review, conversation w/ program evaluation consultant (Spoke with Dr. Mcallister), review of inpatient medication list PO Intake: Tolerating PO diet Voiding: no voiding problems Patient reports feeling the same as yesterday. She states that she is still somewhat weak and fatigued but feels better than when she came in. She denies any SOB at rest but complains of TAYLOR. She also complains of a 3/10 dull pain in her lower abdomen that now only occurs with movement. She denies any pain at rest. She is tolerating a PO diet. Last night she had more bleeding from her dental procedure. The patient denies fevers, chills, sweats, chest pain, palpitations, claudication, cough, wheezing, nausea, vomiting, dysuria, hematuria, urinary retention, paralysis, weakness, numbness and tingling. Additional Comments: See HPI for pertinent positives and negatives. All other systems reviewed and negative. (Pippa Rucker ., SUE-C) Objective Vital Signs Date Time Temp Pulse Resp B/P Pulse Ox O2 Delivery O2 Flow Rate FiO2 01/12/17 12:55 36.4 90 18 133/82 96 01/12/17 12:00 Room Air 01/12/17 11:35 36.6 92 14 92/62 97 01/12/17 11:35 36.6 92 14 92/62 97 01/12/17 11:30 36.8 84 18 101/63 96 01/12/17 10:35 92 15 99/68 97 01/12/17 10:20 36.4 56 16 92/63 100 01/12/17 08:00 Room Air 01/12/17 07:51 36.7 89 18 90/62 100 Room Air 01/12/17 04:00 Room Air 01/12/17 03:27 36.6 86 18 104/68 100 Room Air 01/12/17 00:01 95 Room Air 01/11/17 23:56 36.4 91 18 100/67 95 Room Air 01/11/17 20:00 99 Room Air 01/11/17 19:37 36.7 86 18 97/69 99 Room Air 01/11/17 16:27 36.4 85 20 101/69 100 01/11/17 15:53 100 Room Air (Pippa Rucker, PA-C) Physical Exam General Appearance: WD/WN, no apparent distress, + obese Eyes: normal inspection, PERRL, EOMI ENT: normal ENT inspection, hearing grossly normal, pharynx normal, + pertinent finding (no bleeding at present) Neck: supple, no JVD, trachea midline Respiratory/Chest: normal breath sounds, no respiratory distress, + crackles ( crackles in bases) Cardiovascular: no gallop, no murmur, + irregularly irregular (rate controlled) Abdomen: normal bowel sounds, soft, + tenderness (mild suprapubic tenderness) Extremities: non-tender, normal inspection, no pedal edema Neurologic/Psychiatric: alert, normal mood/affect, oriented x 3 Skin: normal color, warm/dry, no rash (Pippa Rucker ., PA-C) Laboratory Results Last 24 Hours Test 01/11/17 16:26 01/11/17 20:24 01/12/17 05:40 01/12/17 06:38 Bedside Glucose 61 mg/dl 101 mg/dl 73 mg/dl White Blood Count 16.65 K/uL Red Blood Count 2.68 M/uL Hemoglobin 7.4 g/dL Hematocrit 23.8 % Mean Corpuscular Volume 88.8 fL Mean Corpuscular Hemoglobin 27.6 pg Mean Corpuscular Hemoglobin Concent 31.1 g/dl Platelet Count 374 K/uL Mean Platelet Volume 9.2 fL Neutrophils (%) (Auto) 67.3 % Lymphocytes (%) (Auto) 21.0 % Monocytes (%) (Auto) 6.4 % Eosinophils (%) (Auto) 0.0 % Basophils (%) (Auto) 0.3 % Neutrophils # (Auto) 11.22 K/uL Lymphocytes # (Auto) 3.49 K/uL Monocytes # (Auto) 1.06 K/uL Eosinophils # (Auto) 0.00 K/uL Basophils # (Auto) 0.05 K/uL RDW Standard Deviation 61.5 fL RDW Coefficient of Variation 19.2 % Immature Granulocyte % (Auto) 5.0 % Immature Granulocyte # (Auto) 0.83 K/uL Nucleated RBC Absolute Count (auto) 0.04 K/uL Nucleated Red Blood Cells % 0.2 % Anisocytosis PRESENT Sodium Level 144 mmol/L Potassium Level 3.3 mmol/L Chloride Level 113 mmol/L Carbon Dioxide Level 19 mmol/L Anion Gap 12.0 mmol/L Blood Urea Nitrogen 31 mg/dl Creatinine 0.88 mg/dl Est Creatinine Clear Calc Drug Dose 52.8 ml/min Estimated GFR () 74.5 Estimated GFR (Non- 64.3 BUN/Creatinine Ratio 35.1 Random Glucose 60 mg/dl Calcium Level 8.0 mg/dl Test 01/12/17 11:05 Bedside Glucose 104 mg/dl (Pippa Rucker ., SONU) Diagnostic Results Reviewed EKG and agree with interpretation as follows: 93 bpm, a-fib (Pippa Rucker PA-C) Assessment and Plan 76 y/o female who presented to the ED with weakness and SOB. She recently had a tooth extraction and appears to have confused her discharge instructions. Instead of stopping Xarelto, she stopped taking her metoprolol. She presented to the ED in a-fib with RVR. A-fib with RVR--now rate controlled -Admitted to telemetry -Echo ordered -EKG q am -Continue metoprolol succinate 25 mg PO BID, hold if SBP<90 or HR <60 -Consult cardiology, appreciate recs: continue current treatment -Xarelto held due to bleeding s/p recent dental procedure -NSS w/ KCl 20 mEq 100 cc/hr. Pt has poor oral intake due to dental procedure, hypotensive on arrival Acute blood loss anemia in postop setting secondary to dental procedure -Hgb had been stable in 8s and 9s -Hgb on 01/12 dropped to 7.4 -Transfuse 2 units PRBCs now -Recheck H&H at 1600 after blood -Oral surgery consulted appreciate recs: can stop Amicar if area remains clotted. Recommend saline rinses after meals. Slowly restart anticoagulation meds when stable one by one Chronic diverticulitis with possible fistulous connection to the skin surface/ fluid collection between the sigmoid colon and the bladder -Blood cultures NGTD x 2 -D/C Zosyn -Obtain medical records from pt's surgeon -Abd/pelvis CT shows abscess is stable as well as fistulous tract. Sigmoid diverticulitis stable, possibly even improved. Recent UTI, lower abdominal pain--resolved, adequately treated -Outpt culture on 01/04 positive for E. coli. Pt had been empirically started on Cipro for 7 days. Sensitivities from 01/05 show resistance to Cipro -Pt was then switched to Ceftin, which is sensitive. Received 7 days sensitive abx, no further tx necessary -Inpt urine culture from 01/11 negative for growth -D/C Zosyn Bladder spasm -Continue Ditropan 5 mg PO BID GERD -Continue Carafate 1 gm PO QID and Protonix 40 mg PO qd Diabetes mellitus--Last HgbA1c checked 08/16/16 was 6.8 -Novolin N 10 units SC qd -Insulin sliding scale -Check BSGs q ac and qhs -Recheck HgbA1c Chronic diastolic CHF -Lasix 40 mg IV x 1 COPD -Continue Symbicort 2 puffs inh BID, Ventolin prn and DuoNeb prn Depression -Continue sertraline 25 mg PO qhs Hypothyroidism -Continue Synthroid 75 mcg PO qd Gout -Continue allopurinol 100 mg PO qd DVT prophylaxis -Hold chemical prophylaxis for now due to bleeding -MABLE reno and SCDs Code Status -Level I, FULL RESUSCITATION STATUS (Pippa Rucker, SONU) Reviewed: Pt Seen/Exam by Me, TITUS Notes, Labs (Mercedes Mcfadden MD) History Physician Machinery Mover Supervision Note: I interviewed and examined the patient. Discussed with SUE Rucker and agree with findings and plan as documented in the note. Any exceptions or clarifications are listed here: Reviewed records from [facility] [place]. Had chronic diverticular abscess with drain placement and removal 1-2 mo ago, was to return today for f/u with Surgeon to see what next step is. Has chronic drainage from fistulous tract to the skin. She came in for her dental bleeding and found to be in rapid A-fib. Rates better after restarting metoprolol. Holding Xarelto and bleeding now resolved, seen by OMFS and no further procedures needed. H/H low and needs PRBCs today Vitals reviewed Obese OP with no bleeding this AM irreg irreg mild tachy CTAB no wcr Abd morbidly obese, fistulous tract with dressing c/d/i, nontender Ext no edema -Oral bleeding-continue to hold Xarelto, is also on DAPT for h/o stents/CAD although review of record and with pt is that she was only on ASA/Plavix for the last week, but normally only on Plavix and Xarelto -will only restart ASA and Xarelto likely tomorrow -transfuse PRBCs todya and repeat H/H improved -OMFS consult appreciated-change to mechanical soft diet GAGANDEEP, CAD s/p MELODY 11/2015-improved after restarting metoprolol -restart Xarelto when bleeding stopped Fistula, chronic abscess, chronic diverticulitis, leukocytosis is chronic but improved since being here. UTI treated x 7 days -reschedule f/u with [facility] Surgery when able to -can stop IV abx Plan for discharge to home likely tomorrow Documented By: Mercedes Mcfadden (Mercedes Mcfadden MD)
--- NOTE | 2017-01-12 14:30 | ECHOCARDIOGRAM REPORT ---
*NOTICE TO RECEIVING CONSTITUTION PARTY AGENCY This information is strictly Confidential and protected under [place] law. [place] law prohibits you from making any further disclosure of this information unless further disclosure is expressly permitted by the written consent of the person to whom it pertains or is authorized by law. A general authorization for the release of medical or other information is not sufficient for this purpose. Hospital accepts no responsibility if the information is made available to any other person, INCLUDING THE PATIENT. Interpretation Summary * Name: ELIZABETH ALLEN Study Date: 01/12/2017 07:06 AM BP: 104/68 mmHg * Patient Location: C.2T\S\S234\S\1 HR: 89 * : 1940 (M/d/yyyy) Gender: Female Height: 60 in * Age: 76 yrs Ethnicity: CA Weight: 180 lb * Ordering Physician: Pippa Rucker * Referring Physician: Self, Referred * Performed By: Felipe Aleman RCS * * Reason For Study: A-FIB * BSA: 1.8 m2 * -- Conclusions -- * Compared with 11/14/15 study, mild improvement in LV systolic function, MR increased slightly, otherwise no significant change. * The left ventricle is grossly normal size. * There is normal left ventricular wall thickness. * Left ventricular systolic function is moderately reduced. * Ejection Fraction = 40-45%. * There is mild to moderate global hypokinesis of the left ventricle. * There is apical akinesis. * There is septal akinesis. * There is moderate to severe posterior wall hypokinesis. * There is moderate mitral regurgitation. * The left atrium is moderately dilated. * There is mild tricuspid regurgitation. * Right ventricular systolic pressure is elevated at 30-40mmHg. Procedure Details * A complete two-dimensional transthoracic echocardiogram was performed (2D, M-mode, Doppler and color flow Doppler). Left Ventricle * The left ventricle is grossly normal size. * There is normal left ventricular wall thickness. * Left ventricular systolic function is moderately reduced. * Ejection Fraction = 40-45%. * There is apical akinesis. * There is septal akinesis. * There is moderate to severe posterior wall hypokinesis. * There is mild to moderate global hypokinesis of the left ventricle. Right Ventricle * The right ventricle is mild to moderately dilated. Atria * The left atrium is moderately dilated. * The right atrium is mildly dilated. * The interatrial septum is intact with no evidence for an atrial septal defect. Mitral Valve * Calcified mitral apparatus. * There is moderate mitral regurgitation. Tricuspid Valve * The tricuspid valve is normal in structure and function. * There is mild tricuspid regurgitation. * Right ventricular systolic pressure is elevated at 30-40mmHg. Aortic Valve * There is no significant aortic regurgitation. * There is a prosthetic aortic valve. * The gradient is normal for this prosthetic aortic valve. Pulmonic Valve * The pulmonary valve is inadequately visualized, but the Doppler data is adequate for interpretation. * Trace pulmonic valvular regurgitation. Great Vessels * The aortic root is normal size. * No obvious dissection could be visualized. * Mild pulmonary artery dilation. Pericardium/Pleural * There is no pericardial effusion. Great Vessels * The inferior vena cava is mildly dilated. MMode 2D Measurements and Calculations IVSd 1.0 cm IVSs 1.3 cm LVIDd 3.8 cm LVIDs 3.1 cm LVPWd 1.0 cm LVPWs 1.3 cm IVS/LVPW 0.99 FS 20.0 % EDV(Teich) 63.4 ml ESV(Teich) 37.0 ml EF(Teich) 41.7 % EDV(cubed) 56.4 ml ESV(cubed) 28.9 ml EF(cubed) 48.9 % % IVS thick 28.4 % % LVPW thick 25.6 % LV mass(C)d 125.8 grams LV mass(C)dI 70.5 grams/m\S\2 LV mass(C)s 131.3 grams LV mass(C)sI 73.6 grams/m\S\2 CO(Teich) 1.9 l/min CI(Teich) 1.1 l/min/m\S\2 SV(Teich) 26.4 ml SI(Teich) 14.8 ml/m\S\2 CO(cubed) 2.0 l/min CI(cubed) 1.1 l/min/m\S\2 SV(cubed) 27.6 ml SI(cubed) 15.5 ml/m\S\2 Ao root diam 3.3 cm Ao root area 8.5 cm\S\2 ACS 1.5 cm LA dimension 5.3 cm LA/Ao 1.6 LVAd ap4 33.6 cm\S\2 LVLd ap4 8.1 cm EDV(MOD-sp4) 116.0 ml LVAs ap4 20.7 cm\S\2 LVLs ap4 6.7 cm ESV(MOD-sp4) 54.0 ml EF(MOD-sp4) 53.4 % LVAd ap2 30.2 cm\S\2 LVLd ap2 8.6 cm EDV(MOD-sp2) 89.0 ml LVAs ap2 18.3 cm\S\2 LVLs ap2 7.5 cm ESV(MOD-sp2) 36.0 ml EF(MOD-sp2) 59.6 % CO(MOD-sp4) 4.4 l/min CI(MOD-sp4) 2.5 l/min/m\S\2 SV(MOD-sp4) 62.0 ml SI(MOD-sp4) 34.7 ml/m\S\2 CO(MOD-sp2) 3.8 l/min CI(MOD-sp2) 2.1 l/min/m\S\2 SV(MOD-sp2) 53.0 ml SI(MOD-sp2) 29.7 ml/m\S\2 Doppler Measurements and Calculations MV E max nani 119.7 cm/sec MV dec time 0.21 sec Ao V2 max 241.5 cm/sec Ao max PG 23.3 mmHg Ao max PG (full) 18.0 mmHg LV V1 max PG 5.3 mmHg LV V1 max 115.4 cm/sec PA V2 max 95.5 cm/sec PA max PG 3.6 mmHg PI max nani 139.6 cm/sec PI max PG 7.8 mmHg PI dec slope 113.3 cm/sec\S\2 PI P1/2t 361.1 msec TR max nani 257.9 cm/sec
[2017-01-12] MEDS ORDERED: GLUCAGON FOR INJ 1 MG VIAL SQ PRN (15:30)
[2017-01-12] MEDS ORDERED: DEXTROSE 50% 50 ML SYR IV PRN (15:30)
[2017-01-12] MEDS ORDERED: GLUCOSE 40% GEL 15 GM TUBE PO PRN (15:30)
[2017-01-12] MEDS ORDERED: GLUCOSE 10 TABS/TUBE PO PRN (15:30)
[2017-01-12 16:28] LABS: HEMATOCRIT 32.2 % (37-47)
[2017-01-12] MEDS: INSULIN ASPART 100 UNITS/ML 3 ML PEN SC SCH ×2 (17:11→20:57)
[2017-01-12] MEDS ORDERED: POTASSIUM CHLORIDE 20 MEQ TABCR PO STA (18:19)
[2017-01-13 00:01] VITALS: O2SAT 96
[2017-01-13 03:46] VITALS: BP 105/71; PULSE 92; TEMP 36.4; O2SAT 99
[2017-01-13] MEDS: LEVOTHYROXINE 75 MCG TAB PO SCH (05:34)
[2017-01-13 07:38] VITALS: BP 107/56; PULSE 84; TEMP 36.5; O2SAT 100
[2017-01-13] MEDS: INSULIN ASPART 100 UNITS/ML 3 ML PEN SC SCH ×2 (07:56→11:49)
[2017-01-13] MEDS: SUCRALFATE 1 GM TAB PO SCH ×2 (07:59→11:37)
[2017-01-13] MEDS: LACTOBACILLUS ACIDOPHILUS (FLORANEX) TAB PO SCH ×2 (07:59→11:37)
[2017-01-13 08:37] LABS: HEMATOCRIT 33.4 % (37-47); MEAN CORPUSCULAR HEMOGLOBIN 27.7 pg (25-34); MEAN CORPUSCULAR HGB CONC 32.6 g/dl (32-36); MEAN PLATELET VOLUME 9.2 fL (7.4-10.4); PLATELET COUNT 361 K/uL (130-400); RED BLOOD COUNT 3.93 M/uL (4.2-5.4); WHITE BLOOD COUNT 13.64 K/uL (4.8-10.8)
[2017-01-13] MEDS: ALLOPURINOL 100 MG TAB PO SCH (09:07)
[2017-01-13] MEDS: GUAIFENESIN 600 MG TABCR PO SCH (09:07)
[2017-01-13] MEDS: RANITIDINE HCL 150 MG TAB PO SCH (09:07)
[2017-01-13] MEDS: BUDESONIDE/FORMOTEROL FUMARATE 160/4.5 60 PUFFS/INHALER INH SCH (09:07)
[2017-01-13] MEDS: SERTRALINE HCL 50 MG TAB PO SCH (09:08)
[2017-01-13] MEDS: PANTOprazole SOD 40 MG TAB PO SCH (09:09)
[2017-01-13] MEDS: OXYBUTYNIN CHLORIDE 5 MG TAB PO SCH (09:09)
[2017-01-13] MEDS: FERROUS SULFATE 325 MG TAB PO SCH (09:09)
[2017-01-13] MEDS: LORATADINE 10 MG TAB PO SCH (09:09)
[2017-01-13] MEDS: ARTIFICIAL TEARS OP SOLN OPB SCH ×4 (09:10→11:37)
[2017-01-13] MEDS: DOCUSATE SODIUM 100 MG CAP PO SCH (09:10)
[2017-01-13] MEDS: MAGNESIUM OXIDE 400 MG TAB PO SCH (09:10)
[2017-01-13] MEDS: METOPROLOL SUCC 25MG EXT REL TAB PO SCH (09:10)
[2017-01-13 09:15] LABS: BUN/CREATININE RATIO 30.6 (10-20); CALCIUM 8.9 mg/dl (8.5-10.1); CREATININE 0.86 mg/dl (0.60-1.20); POTASSIUM 3.7 mmol/L (3.5-5.1)
[2017-01-13 09:22] LABS: BASO ABS # 0.23 K/uL (0-0.2); BASOPHIL % 1.7 %; COMPLETE YES; DOHLE BODIES 1+; LYMPH ABS # 2.37 K/uL (1.2-3.4); LYMPHOCYTE % 17.4 %; META ABS # 0.48 K/uL (0-0); METAMYELOCYTE % 3.5 %; NEUTROPHILS % 75.7 %; POLYCHROMASIA 1+; TOXIC GRANULATION 1+; VACUOLIZATION 1+
--- NOTE | 2017-01-13 10:23 | Discharge Instructions ---
Discharge Instructions Admission Reason for Admission: Atrial Fibrillation W/ Rvr, Diverticulitis (Pippa Rucker PA-C) Discharge Discharge Diagnosis / Problem: Atrial fibrillation with rapid ventricular response (Pippa Rucker PA-C) Discharge Goals Goal(s): Decrease discomfort, Improve function, Diagnostic testing, Therapeutic intervention (Pippa Rucker PA-C) Activity Recommendations Activity Limitations: resume your previous activity (as tolerated) . (Pippa Rucker PA-C) Instructions / Follow-Up Instructions / Follow-Up You were admitted to the hospital with weakness and shortness of breath. You were found to be in atrial fibrillation with a rapid heart rate, and it appears that your beta tripp, metoprolol, had been stopped accidentally. You were given one dose of digoxin IV and restarted on your home metoprolol dose, which did help to control your heart rate to a reasonable rate. An echocardiogram ( ultrasound of your heart) was performed which did not show any significant changes compared to your previous study. While in the hospital, you did experience bleeding in the mouth from your recent dental procedure. You developed an acute blood loss anemia which required the transfusion of 2 units of blood on 01/12. After receiving the blood , your blood counts were greatly improved. The following morning, your blood counts have continued to improve, suggesting that the bleeding has stopped and is under control. Recommendations: *Oral surgery recommended that you use saline rinses after meals to gently cleanse the mouth. You can continue this home by rinsing your mouth with salty water. They also recommended a diet of soft foods so that the clot formation is not disturbed and does not precipitate more bleeding. Medications: *You may now continue taking Xarelto 20 mg by mouth daily as there is no longer any active bleeding. You may also resume your low dose aspirin 81 mg. As it has been over 1 year since your cardiac stents were placed and you are on other anticoagulation therapy, you may discontinue taking the clopidogrel (Plavix). *You will discontinue taking any outpatient antibiotics, as you received a full course of treatment for the urinary tract infection, and cultures in the hospital were negative. *Your furosemide (Lasix) has been stopped as your blood pressure has been on the lower side of normal. Please follow up with your primary care provider as soon as possible regarding restarting this medication, as you may need to restart on a lower dose. *You may resume your other home medications as before. Follow up: *A referral has been placed for you to follow up with Dr. Amaya regarding your Lasix medication and low normal blood pressure. Please seek medical attention if you experience worsening weakness, lightheadedness, loss of consciousness, palpitations, chest pain, shortness of breath, nausea, or vomiting. (Pippa Rucker PA-C) Instructions / Follow-Up PLEASE ALSO STOP YOUR POTASSIUM PILL. Your PCP can determine if you need to restart your lasix and your potassium in the future. (Mercedes Mcfadden MD) Current Hospital Diet Patient's current hospital diet: AHA Diet (Heart Healthy), Diabetes Type 2 Diet (Pippa Rucker PA-C) Discharge Diet Recommended Diet: Low Sodium Diet (2gm Na), Diabetes Type 2 Diet Diet Texture: Mechanical Soft (ground) (Pippa Rucker PA-C) Procedures Procedures Performed: Echocardiogram (Pippa Rucker PA-C) Pending Studies Studies pending at discharge: no (Pippa Rucker PA-C) Laboratory Results Hemoglobin A1c Test 01/11/17 12:40 Range/Units Estimated Average Glucose 126 mg/dl Hemoglobin A1c 6.0 H 4.5-5.6 % (Pippa Rucker PA-C) Medical Emergencies . Who to Call and When: Medical Emergencies: If at any time you feel your situation is an emergency, please call 911 immediately. . (Pippa Rucker PA-C) Non-Emergent Contact Non-Emergency issues call your: Primary Care Provider, Lay Out Former Call Non-Emergent contact if: you have a fever, you have any medication questions . (Pippa Rucker PA-C) . "Provider Documentation" section prepared by Pippa Rucker. (Pippa Rucker PA-C) VTE Core Measure Inpt VTE Proph given/why not?: Other Anticoagulation (she has been on Xarelto which will be discontinued), SCD's (Pippa Rucker PA-C)
[2017-01-13 10:54] VITALS: BP 103/75; PULSE 84; TEMP 36.5; O2SAT 98
--- NOTE | 2017-01-13 11:47 | Discharge Summary ---
Discharge Summary Date of Service Jan 13, 2017. (Pippa Rucker PA-C) Discharge Summary Admission Date: Jan 11, 2017 at 03:07 Discharge Date: Jan 13, 2017 Discharge Disposition: Home with services (continue previous home services) Principal Diagnosis: A-fib with RVR Immunizations: Have You Had Influenza Vaccine: Yes Influenza Vaccine Date: Aug 02, 2011 History of Tetanus Vaccine?: Yes History of Pneumococcal: Yes Pneumococcal Date: Jul 02, 2000 History of Hepatitis B Vaccine: No Procedures: ECHOCARDIOGRAM REPORT [place], [place] Patient: ELIZABETH ALLEN Admit Date: 01/10/1702/27/17 Med Rec: [id number] Location: [facility] Acct ID: [id number] Room/Bed: [facility] Date: 1940 Sex: F Report #: [id number] Age: 76 Test: Fam Phy: Jesus Amaya M.D. Arterial Embalmer: Att Phy: Mercedes Mcfadden MD Diagnosis: ATRIAL FIBRILLATION W/ RVR, DIVERTICULITIS Ebony Phy: Jesus Amaya M.D. Admit Phy: Des Jain M.D. Interpreting Phy: Edgar Goetz M.D. Ordering Phy: CC: Edgar Goetz M.D. Tussey, Natalie B., MD Endcc: [~ rep ct labl] Page 5 of 5 p: [~ rep prt dt last] [~ rep prt tm last] ECHOCARDIOGRAM REPORT [place], PA Patient: ELIZABETH ALLEN Admit Date: 01/10/1702/27/17 Med Rec: [id number] Location: [facility]2 Acct ID: [id number] Room/Bed: [facility] Date: 1940 Sex: F Report #: [id number] Age: 76 Test: Fam Phy: Jesus Amaya M.D. Arterial Embalmer: Att Phy: Mercedes Mcfadden MD Diagnosis: ATRIAL FIBRILLATION W/ RVR, DIVERTICULITIS Ebony Phy: Jesus Amaya M.D. Admit Phy: Des Jain M.D. Interpreting Phy: Edgar Goetz M.D. Ordering Phy: CC: Edgar Goetz M.D. Tussey, Natalie B., MD Endcc: [~ rep ct labl] Page 1 of 1 p: [~ rep prt dt last] [~ rep prt tm last] *NOTICE TO RECEIVING [employer] This information is strictly Confidential and protected under [place] law. [place] law prohibits you from making any further disclosure of this information unless further disclosure is expressly permitted by the written consent of the person to whom it pertains or is authorized by law. A general authorization for the release of medical or other information is not sufficient for this purpose. Hospital accepts no responsibility if the information is made available to any other person, INCLUDING THE PATIENT. Interpretation Summary * Name: ELIZABETH ALLEN Study Date: 01/12/2017 07:06 AM BP: 104/68 mmHg * [facility] HR: 89 * : 1940 (M/d/yyyy) Gender: Female Height: 60 in * Age: 76 yrs Ethnicity: [place] Weight: 180 lb * Ordering Physician: Pippa Rucker * Referring Physician: Self, Referred * Performed By: Felipe Aleman RCS * * Reason For Study: A-FIB * BSA: 1.8 m2 * -- Conclusions -- * Compared with 11/14/15 study, mild improvement in LV systolic function, MR increased slightly, otherwise no significant change. * The left ventricle is grossly normal size. * There is normal left ventricular wall thickness. * Left ventricular systolic function is moderately reduced. * Ejection Fraction = 40-45%. * There is mild to moderate global hypokinesis of the left ventricle. * There is apical akinesis. * There is septal akinesis. * There is moderate to severe posterior wall hypokinesis. * There is moderate mitral regurgitation. * The left atrium is moderately dilated. * There is mild tricuspid regurgitation. * Right ventricular systolic pressure is elevated at 30-40mmHg. Procedure Details * A complete two-dimensional transthoracic echocardiogram was performed (2D, M- mode, Doppler and color flow Doppler). Left Ventricle * The left ventricle is grossly normal size. * There is normal left ventricular wall thickness. * Left ventricular systolic function is moderately reduced. * Ejection Fraction = 40-45%. * There is apical akinesis. * There is septal akinesis. * There is moderate to severe posterior wall hypokinesis. * There is mild to moderate global hypokinesis of the left ventricle. Right Ventricle * The right ventricle is mild to moderately dilated. Atria * The left atrium is moderately dilated. * The right atrium is mildly dilated. * The interatrial septum is intact with no evidence for an atrial septal defect. Mitral Valve * Calcified mitral apparatus. * There is moderate mitral regurgitation. Tricuspid Valve * The tricuspid valve is normal in structure and function. * There is mild tricuspid regurgitation. * Right ventricular systolic pressure is elevated at 30-40mmHg. Aortic Valve * There is no significant aortic regurgitation. * There is a prosthetic aortic valve. * The gradient is normal for this prosthetic aortic valve. Pulmonic Valve * The pulmonary valve is inadequately visualized, but the Doppler data is adequate for interpretation. * Trace pulmonic valvular regurgitation. Great Vessels * The aortic root is normal size. * No obvious dissection could be visualized. * Mild pulmonary artery dilation. Pericardium/Pleural * There is no pericardial effusion. Great Vessels * The inferior vena cava is mildly dilated. MMode 2D Measurements and Calculations IVSd 1.0 cm IVSs 1.3 cm LVIDd 3.8 cm LVIDs 3.1 cm LVPWd 1.0 cm LVPWs 1.3 cm IVS/LVPW 0.99 FS 20.0 % EDV(Teich) 63.4 ml ESV(Teich) 37.0 ml EF(Teich) 41.7 % EDV(cubed) 56.4 ml ESV(cubed) 28.9 ml EF(cubed) 48.9 % % IVS thick 28.4 % % LVPW thick 25.6 % LV mass(C)d 125.8 grams LV mass(C)dI 70.5 grams/m\S\2 LV mass(C)s 131.3 grams LV mass(C)sI 73.6 grams/m\S\2 CO(Teich) 1.9 l/min CI(Teich) 1.1 l/min/m\S\2 SV(Teich) 26.4 ml SI(Teich) 14.8 ml/m\S\2 CO(cubed) 2.0 l/min CI(cubed) 1.1 l/min/m\S\2 SV(cubed) 27.6 ml SI(cubed) 15.5 ml/m\S\2 Ao root diam 3.3 cm Ao root area 8.5 cm\S\2 ACS 1.5 cm LA dimension 5.3 cm LA/Ao 1.6 LVAd ap4 33.6 cm\S\2 LVLd ap4 8.1 cm EDV(MOD-sp4) 116.0 ml LVAs ap4 20.7 cm\S\2 LVLs ap4 6.7 cm ESV(MOD-sp4) 54.0 ml EF(MOD-sp4) 53.4 % LVAd ap2 30.2 cm\S\2 LVLd ap2 8.6 cm EDV(MOD-sp2) 89.0 ml LVAs ap2 18.3 cm\S\2 LVLs ap2 7.5 cm ESV(MOD-sp2) 36.0 ml EF(MOD-sp2) 59.6 % CO(MOD-sp4) 4.4 l/min CI(MOD-sp4) 2.5 l/min/m\S\2 SV(MOD-sp4) 62.0 ml SI(MOD-sp4) 34.7 ml/m\S\2 CO(MOD-sp2) 3.8 l/min CI(MOD-sp2) 2.1 l/min/m\S\2 SV(MOD-sp2) 53.0 ml SI(MOD-sp2) 29.7 ml/m\S\2 Doppler Measurements and Calculations MV E max nani 119.7 cm/sec MV dec time 0.21 sec Ao V2 max 241.5 cm/sec Ao max PG 23.3 mmHg Ao max PG (full) 18.0 mmHg LV V1 max PG 5.3 mmHg LV V1 max 115.4 cm/sec PA V2 max 95.5 cm/sec PA max PG 3.6 mmHg PI max nani 139.6 cm/sec PI max PG 7.8 mmHg PI dec slope 113.3 cm/sec\S\2 PI P1/2t 361.1 msec TR max nani 257.9 cm/sec Created: Initialized: 01/12/17; 1430 <Electronically signed by Edgar Goetz M.D.> Signed: 01/12/17 1623 Edgar Goetz M.D. The status of this report is Signed. Draft = Not yet reviewed or approved by [employer]. Signed = Reviewed and approved by [employer]. (Pippa Rucker ., PAManfredC) Medication Reconciliation Changed Medications: Furosemide (Lasix) 80 Mg Tab 120 MG PO QAM for 30 Days, #45 TAB (Changed from: 80 MG; BID) Potassium Chloride Microencaps (Potassium Chloride Er) 20 Meq Tab 50 MEQ PO QAM for 30 Days, TAB (Changed from: 40 MEQ; BID) Continued Medications: Acetaminophen Tab (Tylenol) 325 Mg Tab 650 MG PO Q4H PRN for Mild Pain, TAB DO NOT EXCEED 3 GM APAP/24 HOURS Albuterol Hfa (Ventolin Hfa) 200 Puffs/81633 Mcg Aers 2 PUFFS INH Q6H PRN for SOB/Wheezing, #1 INHALER Allopurinol (Zyloprim) 300 Mg Tab 300 MG PO DAILY, TAB TAKE ONE 300 MG TABLET ALONG WITH ONE 100 MG TABLET TO EQUAL 400 MG DAILY DOSE Allopurinol (Zyloprim) 100 Mg Tab 100 MG PO DAILY, TAB TAKE ONE 100 MG TABLET ALONG WITH ONE 300 MG TABLET TO EQUAL 400 MG DAILY DOSE Aspirin (Aspirin Ec) 81 Mg Tab 81 MG PO DAILY Budesonide/Formoterol Fumarate (Symbicort 160/4.5 Inhaler ) Aero 2 PUFFS INH BID Cranberry (Vaccinium Macrocarp (Cranberry Extract) 200 Mg Cap 200 MG PO DAILY Docusate Sodium (Docusate Sodium) 100 Mg Cap 100 MG PO BID, CAP Ferrous Sulfate (Ferrous Sulfate) 325 Mg Tab 325 MG PO DAILY Guaifenesin Ext Rel (Mucinex Ext Rel) 600 Mg Tab 600 MG PO Q12, TAB Insulin Aspart (Novolog Flexpen) 100 Units/Ml Inj 0 UNITS SC ACHS, #1 PEN use while on steroids goal 120-150 correction 25 carb ratio 10 Insulin Human NPH (Novolin N) 100 Units/Ml Susp 16 UNITS SC DAILY ADMINISTER WITH EVENING MEAL Ipratropium-Albuterol (Duoneb) 3 Ml Nebu 1 TREATMENT INH Q6H PRN for SOB/Wheezing, INHA Levothyroxine Sodium (Levothyroxine Sodium) 75 Mcg Tab 75 MCG PO DAILY, TAB Loratadine (Claritin) 10 Mg Tab 10 MG PO DAILY, TAB Magnesium Oxide (Mg Supplement (Magnesium Oxide) 400 Mg Tab 400 MG PO BID Metoprolol Succinate (Metoprolol Succinate ER) 25 Mg Tabcr 25 MG PO BID, #60 DOSE Oxybutynin Chloride (Ditropan) 5 Mg Tab 5 MG PO BID Pantoprazole (Protonix) 40 Mg Tab 40 MG PO DAILY, TAB Polyvinyl Alcohol (Artificial Tears) 1.4 % Nicole 1 DROP OPB QID Pravastatin Sod (Pravastatin Sodium) 40 Mg Tab 40 MG PO QPM Probiotic Product (Align) 4 Mg Cap 4 MG PO DAILY ADMINISTER THIS MEDICATION ONCE DAILY AFTER EVENING MEAL Ranitidine Hcl (Zantac) 150 Mg Tab 150 MG PO BID, TAB Rivaroxaban (Xarelto) 20 Mg Tab 20 MG PO DAILY, TAB Sertraline (Zoloft) 25 Mg Tab 25 MG PO DAILY, TAB Sucralfate (Carafate) 1 Gm Tab 1 GM PO ACHS, TAB Discontinued Medications: Ciprofloxacin (Cipro) 250 Mg Tab 250 MG PO BID, #10 Clopidogrel (Plavix) 75 Mg Tab 75 MG PO DAILY Ondansetron (Ondansetron HCl) 4 Mg Tab 4 MG PO Q6 PRN for Nausea Referrals At Discharge Follow up Referrals: Physician Referral - First Available with Jesus Amaya M.D. Discharge Exam Patient reports feeling well. She denies any new complaints. She states that the bleeding in her mouth seems to have stopped. She does still feel somewhat weak and requires assistance to the bathroom. She has some mild dyspnea on exertion when getting up and down to go to the bathroom, but this resolves with her albuterol inhaler. The patient denies fevers, chills, sweats, chest pain, palpitations, claudication, cough, wheezing, shortness of breath at rest, nausea , vomiting, abdominal pain, dysuria, hematuria, urinary retention, paralysis, motor weakness, numbness and tingling. Review of Systems: Constitutional: + weakness (improved compared to arrival), No chills, No fever, No sweats Eyes: No diplopia, No eye pain, No worsening of vision ENT: No hearing loss, No sore throat, No trouble swallowing Respiratory: + dyspnea on exertion, No cough, No dyspnea at rest, No wheezing Cardiovascular: No chest pain, No edema, No palpitations Abdomen: No nausea, No pain, No vomiting Musculoskeletal: No calf pain, No joint pain, No muscle pain Genitourinary - Female: No dysuria, No hematuria, No urinary retention Neurologic: No numbness/tingling, No paralysis, No weakness Integumentary: No color change, No itch, No rash Physical Exam: General Appearance: WD/WN, no apparent distress, + obese Eyes: normal inspection, PERRL, EOMI ENT: normal ENT inspection, hearing grossly normal, pharynx normal, + pertinent finding (no bleeding) Neck: supple, no JVD, trachea midline Respiratory/Chest: normal breath sounds, no respiratory distress, + crackles (mild crackles in bases R>L, improved) Cardiovascular: no gallop, no murmur, + irregularly irregular (rate controlled) Abdomen / GI: normal bowel sounds, non tender, soft Extremities: normal inspection, no calf tenderness, no pedal edema Neurologic/Psychiatric: alert, normal mood/affect, oriented x 3 Skin: normal color, warm/dry, no rash (Pippa Rucker ., PA-C) Hospital Course 76 y/o female who presented to the ED with weakness and SOB. She recently had a tooth extraction and appears to have confused her discharge instructions. Instead of stopping Xarelto, she stopped taking her metoprolol. She presented to the ED in a-fib with RVR. A-fib with RVR--now rate controlled. No events overnight on tele, HR controlled overnight. -Admitted to telemetry -Echo: LVEF 40-45%, mild to moderate global hypokinesis of left ventricle, apical and septal akinesis, moderate to severe posterior wall hypokinesis -EKG q am. EKGs have been stable with rate controlled a-fib -Continue metoprolol succinate 25 mg PO BID, hold if SBP<90 or HR <60 -Consult cardiology, appreciate recs: continue current treatment -Xarelto held due to bleeding s/p recent dental procedure. Bleeding has now stopped, Hgb stable, may resume Xarelto on discharge. -NSS w/ KCl 20 mEq 100 cc/hr. Pt has poor oral intake due to dental procedure, hypotensive on arrival Acute blood loss anemia in postop setting secondary to dental procedure -Hgb had been stable in 8s and 9s -Hgb on 01/12 dropped to 7.4 -Transfuse 2 units PRBCs -Recheck H&H at 1600 after blood, Hgb 10.5 -Oral surgery consulted appreciate recs: can stop Amicar if area remains clotted. Recommend saline rinses after meals. Slowly restart anticoagulation meds when stable -Hgb 10.9 on 01/13 -Resume Xarelto and ASA 81 on discharge. Will d/c Plavix as pt had stents placed over 1 year ago. Chronic diverticulitis with possible fistulous connection to the skin surface/ fluid collection between the sigmoid colon and the bladder -Blood cultures NGTD x 2 -D/C Zosyn -Obtain medical records from pt's surgeon -Abd/pelvis CT shows abscess is stable as well as fistulous tract. Sigmoid diverticulitis stable, possibly even improved. Recent UTI, lower abdominal pain--resolved, adequately treated -Outpt culture on 01/04 positive for E. coli. Pt had been empirically started on Cipro for 7 days. Sensitivities from 01/05 show resistance to Cipro -Pt was then switched to Ceftin, which is sensitive. Received 7 days sensitive abx, no further tx necessary -Inpt urine culture from 01/11 negative for growth -D/C Zosyn Bladder spasm -Continue Ditropan 5 mg PO BID GERD -Continue Carafate 1 gm PO QID and Protonix 40 mg PO qd Diabetes mellitus--Last HgbA1c checked 08/16/16 was 6.8 -Novolin N 10 units SC qd -Insulin sliding scale -Check BSGs q ac and qhs -Recheck HgbA1c Chronic diastolic CHF -Lasix 40 mg IV x 1 -Will hold home Lasix 80 mg PO BID for now. Pt has been low normal BP. Referral to follow up with PCP at first available appointment made, can restart Lasix possibly at lower dose COPD -Continue Symbicort 2 puffs inh BID, Ventolin prn and DuoNeb prn Depression -Continue sertraline 25 mg PO qhs Hypothyroidism -Continue Synthroid 75 mcg PO qd Gout -Continue allopurinol 100 mg PO qd DVT prophylaxis -Hold chemical prophylaxis due to bleeding -MABLE reno and SCDs Code Status -Level I, FULL RESUSCITATION STATUS Dispo -Pt medically stable for discharge. Bleeding appears to have stopped, Hgb stable. A-fib rate controlled -Pt will return home and continue previous home services. Pt says she is never fully alone and has enough help. -F/u with Dr. Amaya in a few days Total Time Spent: Greater than 30 minutes This includes examination of the patient, discharge planning, medication reconciliation, and communication with other providers. (Pippa Rucker ., PA-C) Discharge Instructions Please refer to the electronic Patient Visit Report (Discharge Instructions) for additional information. (Pippa Rucker ., PA-C) Additional Copies To Jesus Amaya M.D. History Physician Audit Intern Supervision Note: Pt left before I saw her. Plan of care reviewed with PA and agree with discharge summary. Called her to discuss plan of care after discharge. Her lasix dosing was documented wrong on med rec. Review of outpt chart shows should be 120mg qAM and she will take this, reduced KCl to 40meq daily Documented By: Mercedes Mcfadden (Mercedes Mcfadden MD)
[2017-01-13 12:15] VITALS: BP 103/75; PULSE 84; TEMP 36.5; O2SAT 98
[2017-01-13] MEDS ORDERED: FURO80TA63 PO (14:22)
[2017-01-13] MEDS ORDERED: POTA20TA13 PO (14:22)
--- NOTE | 2017-01-15 10:23 | EMERGENCY ROOM VISIT NOTE ---
History First contact with patient: 22:23 Chief Complaint: OTHER COMPLAINT Stated Complaint: ATRIAL FIBRILLATION W/ RVR, DIVERTICULITIS History of Present Illness The patient is a 76 year old female who presents to the Emergency Department via EMS for evaluation of bleeding from her RIGHT-sided mouth after dental extraction. The patient reports that she had a dental extraction performed of the RIGHT upper and lower molar teeth on the . She is had no bleeding since. She does report that she takes Xarelto secondary to atrial fibrillation. She also takes metoprolol, but admittedly reports that she had not taken the medication since the day after the surgery as she was instructed not to do so. Over the last few days she has noticed weakness as well as shortness of breath on exertion and generalized malaise. She is currently being treated for bladder infection based on symptoms by her primary care provider. She denies any pain, however. She reports no fevers or chills. She denies any headaches, chest pain, palpitations, shortness of breath, nausea, vomiting, hematochezia, melena, or diana hematuria. 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 She did have a drain in place in the lower abdomen, but reports that that was removed. She does report occasional drainage from the affected area. She is uncertain if this has caused her issue recently, but does report some suprapubic abdominal discomfort in the area of the drain. Review of Systems A complete 10-point Review of Systems was discussed with the patient, with pertinent positives and negatives listed in the History of Present Illness. All remaining Review of Systems questions can be considered negative unless otherwise specified. Past Medical/Surgical History Medical Problems: (1) Acute respiratory failure with hypoxia (2) Atrial fibrillation with RVR (3) Collins's palsy (4) CHF (congestive heart failure) (5) Chronic diastolic (congestive) heart failure (6) COPD (chronic obstructive pulmonary disease) (7) COPD exacerbation (8) Diverticulitis (9) Ductal carcinoma in situ (DCIS) of left breast (10) Emphysema of lung (11) Frequent falls (12) Gait abnormality (13) GERD (gastroesophageal reflux disease) (14) hyperkalemia, acute kidney failure, fall (15) Leucocytosis (16) Pacemaker (17) Pneumonia (18) Sepsis (19) sepsis, UTI, severe hypokalemia Surgical Problems: (1) H/O aortic valve replacement (2) S/P AVR (aortic valve replacement) Family History Cancer Diabetes mellitus Heart disease Hypertension Social History Smoking Status: Never Smoker Smokeless Tobacco Use: No Alcohol Use: none Drug Use: none Marital Status: Housing Status: lives alone Occupation Status: retired Current/Historical Medications Scheduled Allopurinol (Zyloprim), 300 MG PO DAILY Allopurinol (Zyloprim), 100 MG PO DAILY Aspirin (Aspirin Ec), 81 MG PO DAILY Budesonide/Formoterol Fumarate (Symbicort 160/4.5 Inhaler ), 2 PUFFS INH BID Cranberry (Vaccinium Macrocarp (Cranberry Extract), 200 MG PO DAILY Docusate Sodium (Docusate Sodium), 100 MG PO BID Ferrous Sulfate (Ferrous Sulfate), 325 MG PO DAILY Furosemide (Lasix), 120 MG PO QAM Guaifenesin Ext Rel (Mucinex Ext Rel), 600 MG PO Q12 Insulin Aspart (Novolog Flexpen), 0 UNITS SC ACHS Insulin Human NPH (Novolin N), 16 UNITS SC DAILY Levothyroxine Sodium (Levothyroxine Sodium), 75 MCG PO DAILY Loratadine (Claritin), 10 MG PO DAILY Magnesium Oxide (Mg Supplement (Magnesium Oxide), 400 MG PO BID Metoprolol Succinate (Metoprolol Succinate ER), 25 MG PO BID Oxybutynin Chloride (Ditropan), 5 MG PO BID Pantoprazole (Protonix), 40 MG PO DAILY Polyvinyl Alcohol (Artificial Tears), 1 DROP OPB QID Potassium Chloride Microencaps (Potassium Chloride Er), 50 MEQ PO QAM Pravastatin Sod (Pravastatin Sodium), 40 MG PO QPM Probiotic Product (Align), 4 MG PO DAILY Ranitidine Hcl (Zantac), 150 MG PO BID Rivaroxaban (Xarelto), 20 MG PO DAILY Sertraline (Zoloft), 25 MG PO DAILY Sucralfate (Carafate), 1 GM PO ACHS Scheduled PRN Acetaminophen Tab (Tylenol), 650 MG PO Q4H PRN for Mild Pain Albuterol Hfa (Ventolin Hfa), 2 PUFFS INH Q6H PRN for SOB/Wheezing Ipratropium-Albuterol (Duoneb), 1 TREATMENT INH Q6 PRN for SOB/Wheezing Allergies Coded Allergies: Atorvastatin (Verified Allergy, Severe, SWELLING, 01/11/17) Sulfa Antibiotics (Verified Allergy, Severe, MOUTH AND TOUNGE SWELL, ) Angiotensin Receptor Blockers (Verified Allergy, Unknown, Unknown, 01/11/17 ) Losartan (Verified Allergy, Unknown, swelling/reflux, 01/11/17) Morphine and Related (Verified Allergy, Unknown, Unknown, 01/11/17) Quinolones (Verified Allergy, Unknown, Unknown, 01/11/17) Statins (Verified Allergy, Unknown, Unknown, 01/11/17) Sulfonylureas (Verified Allergy, Unknown, Unknown, 01/11/17) Glipizide (Verified Adverse Reaction, Intermediate, NAUSEA, 01/11/17) Metformin (Verified Adverse Reaction, Intermediate, vomiting, 01/11/17) Nitrofurantoin (Verified Adverse Reaction, Intermediate, dizziness,nausea vomiting, 01/11/17) BROWN Inhibitors (Verified Adverse Reaction, Mild, COUGH, 01/11/17) Levofloxacin (Verified Adverse Reaction, Mild, NAUSEA, 01/11/17) Lisinopril (Verified Adverse Reaction, Mild, cough, 01/11/17) Pravastatin (Verified Adverse Reaction, Mild, NAUSEA, 01/11/17) Cephalexin (Verified Adverse Reaction, Unknown, GI SYMPTOMS, 01/11/17) Oxycodone (Verified Adverse Reaction, Unknown, DELIRIUM, 01/11/17) Physical Exam Vital Signs Date Time Temp Pulse Resp B/P Pulse Ox O2 Delivery O2 Flow Rate FiO2 01/11/17 02:54 118 24 115/64 96 Room Air 01/11/17 02:02 124 20 91/47 97 Room Air 01/11/17 01:21 123 20 91/64 98 Room Air 01/11/17 01:04 105 01/10/17 23:40 121 20 117/68 98 Room Air 01/10/17 23:19 113 22 100 Room Air 01/10/17 22:43 98 Room Air 01/10/17 21:55 116 18 139/83 98 01/10/17 21:20 108 01/10/17 20:56 36.6 87 20 124/70 98 Room Air Pain Rating (0-10): 0 Physical Exam VITAL SIGNS - Vital signs and nursing notes were reviewed. GENERAL - 76-year-old female appearing her stated age who is in no acute distress. Communicates well with provider and answers questions appropriately. SKIN - drained site noted in the suprapubic area without surrounding erythema or discharge. No tenderness to palpation. No warmth to touch. HEAD - NC/AT. EYES - PERRL with EOMI bilaterally. Sclera anicteric. Palpebral conjunctiva pink and moist with no injection noted. EARS - No deformities of external structures noted on gross examination bilaterally. No pain elicited with palpation of the tragus bilaterally. External auditory canals without discharge or otorrhea. Tympanic membranes pearly matthews without retraction or bulging. No fluid or purulent material visualized behind the TM. Handle of malleus, umbo, cone of light, pars tensa/ flaccid all easily visualized. NOSE - Midline and without cyanosis. No epistaxis or purulent drainage noted. Septum midline without deviation or septal hematoma noted. MOUTH/OROPHARYNX - Without perioral cyanosis. Buccal mucosa pink and moist and without leukoplakia. Tongue midline with equal elevation of palate bilaterally. No tonsillar hypertrophy, erythema, or exudates noted. Who sees no blood noted from the upper and lower lateral surfaces of the posterior molars which have been extracted. NECK - Neck with FROM. Supple to palpation. No lymphadenopathy noted. No nuchal rigidity. LUNGS - Chest wall symmetric without accessory muscle use, intercostals retractions, or central cyanosis. Normal vesicular breath sounds CTA B/L. No wheezes, rales, or rhonchi appreciated. CARDIAC - RRR with S1/S2. No murmur, rubs, or gallops appreciated. ABDOMEN - Skin as above. Abdominal contour obese without pulsations or visible masses. BS normoactive all four quadrants. Mild TTP in the suprapubic area. No palpable masses, hepatosplenomegaly, or ascites noted. EXTREMITIES - No clubbing or peripheral cyanosis. No pretibial edema present. +3 /5 radial, posterior tibial, and dorsalis pedis pulses palpated throughout. +5/ 5 strength noted in UE/LE bilaterally. NEUROLOGIC - Cranial nerves II through XII grossly intact. PSYCH - A&Ox3 and cooperates fully with examiner. Pt is very pleasant and interacts well with examiner. Medical Decision & Procedures ER Provider Diagnostic Interpretation: Radiological imaging and reports were reviewed by myself. Radiologist's Interpretation as follows: CHEST ONE VIEW PORTABLE CLINICAL HISTORY: Weakness. COMPARISON STUDY: Chest CT November 20, 2016. FINDINGS: Lung volumes are normal. There is no pneumothorax or pleural effusion. 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 There are median sternotomy wires and a prosthetic aortic valve. Moderate cardiomegaly is unchanged. There is no evidence of pulmonary edema. No consolidation is identified. Elevation the right humeral head suggests a chronic right rotator cuff tear. IMPRESSION: No acute cardiopulmonary findings. Stable cardiomegaly. No evidence of pulmonary edema. ABDOMEN AND PELVIS CT WITH IV CONTRAST CT DOSE: 1182.42 mGy.cm HISTORY: Pain abd pain h/o rectovesicular fistula/abscess TECHNIQUE: Multiaxial CT images of the abdomen and pelvis were performed following the use of intravenous contrast. COMPARISON STUDY: 01/11/2017 FINDINGS: Lung bases are clear. Several small hepatic cysts unchanged. Cortical scarring of both kidneys. No evidence for hydronephrosis. Moderate atrophic changes of the pancreas. Hyperplastic changes adrenal glands bilaterally unchanged. Several small reactive periaortic and/or mesenteric nodes. Increased colonic fecal content consistent with a component of chronic chronic fecal stasis. Small collection adjacent to the anterolateral aspect of the bladder containing a combination of air and fluid. This is unchanged. There are findings of a left anterior midline incision. This may represent residual fistula to the skin surface. Findings of diverticulitis appear to be similar. Moderate pericolonic infiltrative change is present. There is no evidence for new or interval abscess. There is no significant free fluid within the pelvic cul-de-sac. Localized bowel wall thickening adjacent to the small collection is stable. IMPRESSION: 1. Unaltered diverticular abscess and or collection adjacent to the anterolateral aspect of the bladder dome. 2. This again potentially contains a fistulous tract extending to the skin surface and again is similar. 3. Findings of diverticulitis of the sigmoid is stable to perhaps minimally improved. 4. Increased colonic fecal load consistent with a component of fecal stasis. 5. Mild cortical scarring of both kidneys 6. Several for a small hepatic cysts unchanged Laboratory Results Test 01/10/17 22:35 01/10/17 23:06 Prothrombin Time 11.5 SECONDS (9.0-12.0) Prothromb Time International Ratio 1.1 (0.9-1.1) Activated Partial Thromboplast Time 33.9 SECONDS (21.0-31.0) Partial Thromboplastin Ratio 1.3 Magnesium Level 2.4 mg/dl (1.8-2.4) Total Bilirubin 0.3 mg/dl (0.2-1) Aspartate Amino Transf (AST/SGOT) 8 U/L (15-37) Alanine Aminotransferase (ALT/SGPT) 10 U/L (12-78) Alkaline Phosphatase 107 U/L (45-117) Total Creatine Kinase 13 U/L (26-192) Creatine Kinase MB 1.1 ng/ml (0.5-3.6) Creatine Kinase MB Ratio 8.5 (0-3.0) Total Protein 6.0 gm/dl (6.4-8.2) Albumin 2.4 gm/dl (3.4-5.0) Globulin 3.6 gm/dl (2.5-4.0) Albumin/Globulin Ratio 0.7 (0.9-2) Lipase 57 U/L (73-393) Thyroid Stimulating Hormone (TSH) 3.150 uIu/ml (0.300-4.500) Urine Color YELLOW Urine Appearance CLEAR (CLEAR) Urine pH 7.0 (4.5-7.5) Urine Specific [place] 1.005 (1.000-1.030) Urine Protein NEG (NEG) Urine Glucose (UA) NEG (NEG) Urine Ketones NEG (NEG) Urine Occult Blood NEG (NEG) Urine Nitrite NEG (NEG) Urine Bilirubin NEG (NEG) Urine Urobilinogen NEG (NEG) Urine Leukocyte Esterase TRACE (NEG) Urine WBC (Auto) 5-10 /hpf (0-5) Urine RBC (Auto) 0-4 /hpf (0-4) Urine Hyaline Casts (Auto) 1-5 /lpf (0-5) Urine Epithelial Cells (Auto) 10-20 /lpf (0-5) Urine Bacteria (Auto) NEG (NEG) Date/Time Source Procedure Growth Status 01/11/17 00:00 Urine,Catheterized Urine Culture - Final NO GROWTH - LESS THAN 1,000 COLONIES/ML Complete Medications Administered Medications (Trade) Dose Ordered Sig/Vibha Route Start Time Stop Time Status Last Admin Dose Admin Piperacillin Sod/ Tazobactam Sod 4.5 gm 4.5 gm NOW STAT IV 01/10/17 23:51 01/10/17 23:52 DC 01/11/17 00:53 4.5 GM Sodium Chloride 250 ml @ 999 mls/hr Q16M STAT IV 01/11/17 01:48 01/11/17 02:03 DC 01/11/17 01:48 999 MLS/HR Sodium Chloride (Nss 1000ml) 1,000 ml @ 100 mls/hr Q10H STAT IV 01/11/17 01:48 01/11/17 04:39 DC 01/11/17 02:01 100 MLS/HR Potassium Chloride (Klor-Con M10) 40 meq NOW STAT PO 01/11/17 02:47 01/11/17 02:51 DC 01/11/17 03:33 40 MEQ Albuterol (Ventolin Hfa Inhaler) 2 puffs Q6H PRN INH 01/11/17 03:00 01/13/17 15:26 DC 01/12/17 06:01 2 PUFFS Procedure Patient was placed on the laboratory monitor and monitored throughout the entire extent of their stay. In addition, the patient's pulse oximetry was monitored throughout the entire stay. Any abnormalities or aberrancies were addressed appropriately. ECG Indication: weakness Rate (beats per minute): 93 Rhythm: atrial fibrillation Findings: other ED Course Patient was seen and evaluated by myself. Labs were drawn, saline lock in place. I did speak with Dr. Cao who suggests utilizing Amicar topically to the dentition. This was applied for comfort. Chest x-ray and EKG were obtained. Laboratory results demonstrated significant leukocytosis of greater than 21,000. The patient has a mild anemia. There are no significant electrolyte abnormalities. Cath urine specimen was obtained and demonstrated no acute findings. Patient was treated with IV Zosyn after blood cultures were obtained. CT of the abdomen and pelvis with IV contrast was ordered. Case was discussed with my attending physician who independently evaluated the patient and agrees with diagnostic approach and treatment plan. The patient was hydrated with a 250 mL normal saline bolus followed by normal saline at a rate of 100 mL per hour. Laboratory results and imaging studies were discussed with the [facility] hospitalist who agrees to admit the patient for further evaluation and management. Patient admitted in stable condition. Medical Decision Given the patient's presentation and stated complaints, I did elect to perform the above-mentioned workup. The patient presents today with complaint of bleeding from the gums as well as generalized weakness and malaise. The bleeding was stopped with topical Amicar. While in the emergency setting, it was noticed that the patient did have an elevated heart rate that bounced up to the 130s. She was also found to be in A. fib. I did question the patient if she took her nightly medications which she had not. She admits that she has not taken her metoprolol for the last several days since the procedure as she was instructed not to. I question if the patient was instructed not to use her Xarelto instead and mixed of the medications and she is expressing weakness secondary to the atrial fibrillation. Regardless, she was found have a market leukocytosis and has a known history of abdominal abscess with possible fistula. I did obtain urinalysis which was otherwise unremarkable. She was currently treated for UTI, however, so this was concerning as she had no urinary source. Blood cultures were then obtained and she was treated with IV Zosyn for abdominal coverage. CT as above. At this point, the patient warrants further admission for evaluation and treatment. The patient was admitted in fair condition. In the evaluation and treatment of this patient, the following differential diagnoses were considered: ACS, OK, PE, bleeding dyscrasia, DIC, abdominal abscess, diverticulitis, appendicitis, UTI, pyelonephritis, sepsis, amongst others. Impression Primary Impression: Atrial fibrillation with RVR Additional Impression: Postoperative bleeding from mouth Departure Information Dispostion Admitted as an inpatient Condition FAIR Prescriptions Potassium Chloride Microencaps (POTASSIUM CHLORIDE ER) 20 Meq Tab 50 MEQ PO QAM for 30 Days, TAB Prov: Mercedes Mcfadden MD 01/13/17 Furosemide (Lasix) 80 Mg Tab 120 MG PO QAM for 30 Days, #45 TAB Prov: Mercedes Mcfadden MD 01/13/17 Referrals Jesus Amaya M.D. (PCP) Forms WORK / SCHOOL INSTRUCTIONS, HOME CARE DOCUMENTATION FORM, IMPORTANT VISIT INFORMATION Patient Instructions Diabetes Low Blood Sugar Ch, My [facility] Health Problem Qualifiers
== END 2017-01-13 15:26 | disposition home health service (06) | DRG 920 ==
LOC: ENRESERVDT → ENRESERVTM → EDBD 20:29 → C.EDC 20:30 → C.2T 01-11 03:07 → EDBEDREQSVC 01-11 03:18
PROVIDERS: ADMIT Hospitalist; ATTEND Family Medicine
DX: K91.840 Postprocedural hemorrhage of a digestive system organ or structure following a digestive system procedure (principal); D62 Acute posthemorrhagic anemia; K57.20 Diverticulitis of large intestine with perforation and abscess without bleeding; K63.2 Fistula of intestine; I50.32 Chronic diastolic (congestive) heart failure; I48.2 Chronic atrial fibrillation; Z91.138 Patient's unintentional underdosing of medication regimen for other reason; N32.89 Other specified disorders of bladder; E11.9 Type 2 diabetes mellitus without complications; J44.9 Chronic obstructive pulmonary disease, unspecified; K21.9 Gastro-esophageal reflux disease without esophagitis; E03.9 Hypothyroidism, unspecified; I25.10 Atherosclerotic heart disease of native coronary artery without angina pectoris; M10.9 Gout, unspecified; F32.9 Major depressive disorder, single episode, unspecified; E66.01 Morbid (severe) obesity due to excess calories; Z79.899 Other long term (current) drug therapy; Z79.01 Long term (current) use of anticoagulants; Z79.4 Long term (current) use of insulin; Z79.02 Long term (current) use of antithrombotics/antiplatelets; Z79.82 Long term (current) use of aspirin; Z87.440 Personal history of urinary (tract) infections; Z95.4 Presence of other heart-valve replacement; Z85.3 Personal history of malignant neoplasm of breast; Z92.3 Personal history of irradiation; Z95.0 Presence of cardiac pacemaker; Z86.14 Personal history of Methicillin resistant Staphylococcus aureus infection; Z68.36 Body mass index [BMI] 36.0-36.9, adult; Z83.3 Family history of diabetes mellitus; Z82.49 Family history of ischemic heart disease and other diseases of the circulatory system

== ENCOUNTER 2017-01-22 23:46 | Inpatient (IN) | payer OTHER ==
[~2017-01-22] VITALS: Ht 152.4 cm; Wt 87.2 kg
[~2017-01-22 23:46] MED LIST changes: -ALBU1AER9 INH; +ASPI81TA28 PO; -BISA10SU7 PR; -CIPR250T3 PO; -CLOP1TAB15 PO; -MOML PO; -ONDA8TAB12 PO; -PRED10TA PO; -SCPTP TOP; -SODIENE PR; -TRAM-10 PO; +VNTHFA/IN INH
[2017-01-23] VITALS (53 sets, daily range): BP systolic 0–124; BP diastolic 0–81; PULSE 0–150; TEMP 36.1–36.5; O2SAT 71–100; Ht 152.4 cm; Wt 87.2 kg
[2017-01-23] MEDS ORDERED: CHOL2000 PO (00:08)
[2017-01-23] MEDS ORDERED: POTA20TA11 PO (00:09)
[2017-01-23] MEDS ORDERED: CRAN1TAB4 PO (00:11)
[2017-01-23] MEDS ORDERED: SODIUM CHLORIDE 0.9% 500ML 500 ML IV STA (00:11)
[2017-01-23] MEDS ORDERED: SCOP1DIS14 TD (00:12)
[2017-01-23] MEDS ORDERED: TRAM-10 PO (00:12)
[2017-01-23] MEDS ORDERED: DICL1GEL12 TOP (00:14)
[2017-01-23] MEDS ORDERED: NYST100010 TD (00:19)
[2017-01-23] MEDS ORDERED: CEFU250T15 PO (00:19)
[2017-01-23] MEDS ORDERED: INSHNI SQ (00:20)
[2017-01-23 00:25] LABS: BASO % 0.1 %; BASO ABS # 0.03 K/uL (0-0.2); COMPLETE YES; HEMATOCRIT 27.7 % (37-47); IG% 1.9 %; LYMPH % 13.8 %; LYMPH ABS # 3.17 K/uL (1.2-3.4); MEAN CELL VOLUME 87.7 fL (80-100); MEAN CORPUSCULAR HEMOGLOBIN 28.5 pg (25-34); MEAN CORPUSCULAR HGB CONC 32.5 g/dl (32-36); MONO % 8.4 %; NEUT % 75.8 %; PLATELET COUNT 513 K/uL (130-400); RED BLOOD COUNT 3.16 M/uL (4.2-5.4); WHITE BLOOD COUNT 23.02 K/uL (4.8-10.8)
[2017-01-23 00:41] LABS: URINE APPEARANCE CLEAR (CLEAR); URINE BILIRUBIN NEG (NEG); URINE COLOR YELLOW; URINE EPITHELIAL CELL AUTO 0-5 /lpf (0-5); URINE NITRITE NEG (NEG); URINE SPECIFIC GRAVITY 1.004 (1.000-1.030); UROBILINOGEN NEG (NEG); ZZURINE CULT IF INDIC CATH YES
[2017-01-23 00:42] LABS: INR 1.3 (0.9-1.1); PARTIAL THROMBOPLASTIN RATIO 1.8; PROTHROMBIN TIME (PATIENT) 14.3 SECONDS (9.0-12.0)
[2017-01-23 00:44] LABS: ALT/SGPT 10 U/L (12-78); AST/SGOT 5 U/L (15-37); BLOOD UREA NITROGEN 48 mg/dl (7-18); BUN/CREATININE RATIO 48.2 (10-20); CALCIUM 8.1 mg/dl (8.5-10.1); CARBON DIOXIDE 22 mmol/L (21-32); CHLORIDE 105 mmol/L (98-107); GLUCOSE 56 mg/dl (70-99); MAGNESIUM 2.6 mg/dl (1.8-2.4); POTASSIUM 3.2 mmol/L (3.5-5.1); SODIUM 140 mmol/L (136-145)
[2017-01-23 00:45] LABS: MANUAL MICROSCOPIC REQUIRED? NO; REVIEW REQ? NO
[2017-01-23 00:47] LABS: ALKALINE PHOSPHATASE 108 U/L (45-117); PHOSPHORUS 3.2 mg/dl (2.5-4.9)
[2017-01-23] MEDS ORDERED: PIPERACILLIN/TAZOBACTAM 4.5 GM/100ML D5W IV STA (01:18)
[2017-01-23] MEDS ORDERED: DEXTROSE 50% 50 ML SYR IV STA (01:37)
[2017-01-23] MEDS ORDERED: GUAIFENESIN 600 MG TABCR PO PRN (02:00)
[2017-01-23] MEDS ORDERED: ZOLPIDEM TARTRATE 5 MG TAB PO PRN (02:00)
[2017-01-23] MEDS ORDERED: NITROGLYCERIN 0.4 MG SL PER TAB CHARGE SL PRN (02:00)
[2017-01-23] MEDS ORDERED: ALBUTEROL HFA 8 GM INHALER INH PRN (02:00)
[2017-01-23] MEDS ORDERED: ACETAMINOPHEN 325 MG TAB PO PRN (02:00)
[2017-01-23] MEDS ORDERED: DICLOFENAC SOD 1% GEL 100 GM TUBE EXT PRN (02:00)
[2017-01-23] MEDS ORDERED: LORATADINE 10 MG TAB PO PRN (02:00)
--- NOTE | 2017-01-23 02:10 | History and Physical ---
History & Physical Date & Time of Service: Jan 23, 2017 at 02:09 Chief Complaint: Weakness Primary Care Physician: Jesus Amaya M.D. History of Present Illness Source: patient The patient is a 76-year-old female who was most recently in hospital from January 11 to January 13 due to episode of atrial fibrillation with RVR and workup for chronic diverticulitis and bleeding after dental procedure. The patient was discharged to home and feeling better however she primarily sat in her chair, did not engage in much activity, and then has developed progressively worsening weakness, ambulatory dysfunction, difficulty with urination, and re-presents emergency department for assessment tonight. Past Medical/Surgical History Medical Problems: (1) Collins's palsy Status: Chronic (2) CHF (congestive heart failure) Status: Chronic (3) COPD (chronic obstructive pulmonary disease) Status: Chronic (4) Ductal carcinoma in situ (DCIS) of left breast Permanent Comment: Abnormal left breast mammogram Status post biopsy revealing DCIS Reexcision with no residual disease status post completion of radiation therapy 08/17/2012 utilizing accelerated partial breast treatment received 3850 cGy Reexcision of fibroadipose tissue and fat necrosis 02/15/2014 Status: Resolved (5) Emphysema of lung Status: Chronic (6) GERD (gastroesophageal reflux disease) Status: Chronic (7) Pacemaker Status: Chronic Surgical Problems: (1) H/O aortic valve replacement Status: Chronic (2) S/P AVR (aortic valve replacement) Status: Resolved Family History Cancer Diabetes mellitus Heart disease Hypertension Social History Smoking Status: Never Smoker Smokeless Tobacco Use: No Alcohol Use: none Drug Use: none Marital Status: Housing status: lives alone Occupational Status: retired Immunizations History of Influenza Vaccine: Yes Influenza Vaccine Date: Aug 02, 2011 History of Tetanus Vaccine?: Yes History of Pneumococcal: Yes Pneumococcal Date: Jul 02, 2000 History of Hepatitis B Vaccine: No Multi-Drug Resistant Organisms History of MDRO: Yes Type of MDRO: MRSA Allergies Coded Allergies: Atorvastatin (Verified Allergy, Severe, SWELLING, 01/22/17) Sulfa Antibiotics (Verified Allergy, Severe, MOUTH AND TOUNGE SWELL, ) Angiotensin Receptor Blockers (Verified Allergy, Unknown, Unknown, 01/22/17 ) Losartan (Verified Allergy, Unknown, swelling/reflux, 01/22/17) Morphine and Related (Verified Allergy, Unknown, Unknown, 01/22/17) Quinolones (Verified Allergy, Unknown, Unknown, 01/22/17) Statins (Verified Allergy, Unknown, Unknown, 01/22/17) Sulfonylureas (Verified Allergy, Unknown, Unknown, 01/22/17) Glipizide (Verified Adverse Reaction, Intermediate, NAUSEA, 01/22/17) Metformin (Verified Adverse Reaction, Intermediate, vomiting, 01/22/17) Nitrofurantoin (Verified Adverse Reaction, Intermediate, dizziness,nausea vomiting, 01/22/17) BROWN Inhibitors (Verified Adverse Reaction, Mild, COUGH, 01/22/17) Levofloxacin (Verified Adverse Reaction, Mild, NAUSEA, 01/22/17) Lisinopril (Verified Adverse Reaction, Mild, cough, 01/22/17) Pravastatin (Verified Adverse Reaction, Mild, NAUSEA, 01/22/17) Cephalexin (Verified Adverse Reaction, Unknown, GI SYMPTOMS, 01/22/17) Oxycodone (Verified Adverse Reaction, Unknown, DELIRIUM, 01/22/17) Home Medications Scheduled Allopurinol (Zyloprim), 300 MG PO DAILY Allopurinol (Zyloprim), 100 MG PO DAILY Budesonide/Formoterol Fumarate (Symbicort 160/4.5 Inhaler ), 2 PUFFS INH BID Cefuroxime Axetil (Ceftin), 250 MG PO Q12 Cholecalciferol (Vitamin D3), 1 CAP PO DAILY Cranberry (Vaccinium Macrocarp (Cranberry), 400 MG PO DAILY Diclofenac Sodium (Topical) (Voltaren 1% Top Gel), 1 APPLN TOP DAILY Docusate Sodium (Docusate Sodium), 100 MG PO BID Ferrous Sulfate (Ferrous Sulfate), 325 MG PO DAILY Furosemide (Lasix), 120 MG PO QAM Insulin Human NPH (Humulin N), SQ UD Levothyroxine Sodium (Levothyroxine Sodium), 75 MCG PO DAILY Magnesium Oxide (Mg Supplement (Magnesium Oxide), 400 MG PO BID Metoprolol Succinate (Metoprolol Succinate ER), 25 MG PO BID Nystatin (Topical) (Nystop), 1 APPLN TD BID Oxybutynin Chloride (Ditropan), 5 MG PO BID Pantoprazole (Protonix), 40 MG PO DAILY Polyvinyl Alcohol (Artificial Tears), 1 DROP OPB QID Potassium Chloride Microencaps (Potassium Chloride Cr), 2 TABS PO BID Pravastatin Sod (Pravastatin Sodium), 40 MG PO QPM Probiotic Product (Align), 4 MG PO DAILY Ranitidine Hcl (Zantac), 150 MG PO BID Scopolamine (Transderm-Scop), 3 MG TD Q72H Sucralfate (Carafate), 1 GM PO ACHS Scheduled PRN Albuterol Hfa (Ventolin Hfa), 2 PUFFS INH Q6H PRN for SOB/Wheezing Guaifenesin Ext Rel (Mucinex Ext Rel), 600 MG PO Q12 PRN for CONGESTION Loratadine (Claritin), 10 MG PO DAILY PRN for ALLERGIC RHINITIS Tramadol (Ultram), 25 MG PO Q4H PRN for SEVERE PAIN Review of Systems The patient denies chest pain, palpitations, shortness of breath, cough, lower extremity swelling, vision change, hearing change, sore throat, fevers, chills, sweats, weight change, vomiting, abdominal pain, pelvic pain, blood in urine or stool, urinary frequency or urgency, headache, memory loss, rash, abnormal bruising or bleeding, imbalance, focal weakness, numbness or tingling in arms or legs, arthralgias or myalgias, back or neck pain, night sweats, or allergy symptoms. The review of systems is otherwise negative other than for that already noted above, and at least 10 systems have been reviewed. Physical Exam Vital Signs Date Time Temp Pulse Resp B/P Pulse Ox O2 Delivery O2 Flow Rate FiO2 01/23/17 00:35 83 18 121/86 100 Room Air 01/23/17 00:04 104 80/51 98 86/61 01/22/17 23:58 36.6 79 18 89/67 100 Room Air 01/22/17 23:51 87 The patient is awake, alert and oriented 3, very fatigued appearing, lying in bed and in no acute distress. HEENT--PERRL, EOMI, mucous membranes and oropharynx dry. Neck--supple, no JVD or bruits, thyroid normal, trachea midline, no adenopathy. Heart--normal S1 and S2, no extra beats, no murmurs, rubs or gallops. Lungs--clear bilaterally but diminished throughout, no respiratory distress, no accessory muscle use. Abdomen--normal bowel sounds and soft, nontender and nondistended, no hernias or masses, no organomegaly. Extremities--no cyanosis, clubbing or edema. There are good distal pulses b/l. Dermatologic--normal skin turgor, normal color, warm and dry, no abnormal lymph nodes, no rash. Neurologic--cranial nerves II through XII grossly intact, motor and sensory examination normal. Rheumatologic--normal range of motion, nontender, muscles and joints for age. Psychiatric--flat affect. Diagnostics Laboratory Results Results Past 24 Hours Test 01/23/17 00:00 01/23/17 00:31 Range/Units White Blood Count 23.02 4.8-10.8 K/uL Red Blood Count 3.16 4.2-5.4 M/uL Hemoglobin 9.0 12.0-16.0 g/dL Hematocrit 27.7 37-47 % Mean Corpuscular Volume 87.7 80-100 fL Mean Corpuscular Hemoglobin 28.5 25-34 pg Mean Corpuscular Hemoglobin Concent 32.5 32-36 g/dl Platelet Count 513 130-400 K/uL Mean Platelet Volume 9.0 7.4-10.4 fL Neutrophils (%) (Auto) 75.8 % Lymphocytes (%) (Auto) 13.8 % Monocytes (%) (Auto) 8.4 % Eosinophils (%) (Auto) 0.0 % Basophils (%) (Auto) 0.1 % Neutrophils # (Auto) 17.44 1.4-6.5 K/uL Lymphocytes # (Auto) 3.17 1.2-3.4 K/uL Monocytes # (Auto) 1.94 0.11-0.59 K/uL Eosinophils # (Auto) 0.01 0-0.5 K/uL Basophils # (Auto) 0.03 0-0.2 K/uL RDW Standard Deviation 54.4 36.4-46.3 fL RDW Coefficient of Variation 17.2 11.5-14.5 % Immature Granulocyte % (Auto) 1.9 % Immature Granulocyte # (Auto) 0.43 0.00-0.02 K/uL Prothrombin Time 14.3 9.0-12.0 SECONDS Prothromb Time International Ratio 1.3 0.9-1.1 Activated Partial Thromboplast Time 46.8 21.0-31.0 SECONDS Partial Thromboplastin Ratio 1.8 Sodium Level 140 136-145 mmol/L Potassium Level 3.2 3.5-5.1 mmol/L Chloride Level 105 98-107 mmol/L Carbon Dioxide Level 22 21-32 mmol/L Anion Gap 13.0 3-11 mmol/L Blood Urea Nitrogen 48 7-18 mg/dl Creatinine 1.00 0.60-1.20 mg/dl Est Creatinine Clear Calc Drug Dose 48.5 ml/min Estimated GFR () 63.8 Estimated GFR (Non- 55.1 BUN/Creatinine Ratio 48.2 10-20 Random Glucose 56 70-99 mg/dl Calcium Level 8.1 8.5-10.1 mg/dl Phosphorus Level 3.2 2.5-4.9 mg/dl Magnesium Level 2.6 1.8-2.4 mg/dl Total Bilirubin 0.2 0.2-1 mg/dl Direct Bilirubin < 0.1 0-0.2 mg/dl Aspartate Amino Transf (AST/SGOT) 5 15-37 U/L Alanine Aminotransferase (ALT/SGPT) 10 12-78 U/L Alkaline Phosphatase 108 45-117 U/L Total Creatine Kinase 10 26-192 U/L Creatine Kinase MB 0.8 0.5-3.6 ng/ml Creatine Kinase MB Ratio 8.0 0-3.0 Troponin I < 0.015 0-0.045 ng/ml Total Protein 5.0 6.4-8.2 gm/dl Albumin 2.0 3.4-5.0 gm/dl Lipase 46 73-393 U/L Urine Color YELLOW Urine Appearance CLEAR CLEAR Urine pH 7.0 4.5-7.5 Urine Specific [place] 1.004 1.000-1.030 Urine Protein NEG NEG Urine Glucose (UA) NEG NEG Urine Ketones NEG NEG Urine Occult Blood NEG NEG Urine Nitrite NEG NEG Urine Bilirubin NEG NEG Urine Urobilinogen NEG NEG Urine Leukocyte Esterase MODERATE NEG Urine WBC (Auto) >30 0-5 /hpf Urine RBC (Auto) 0-4 0-4 /hpf Urine Hyaline Casts (Auto) 1-5 0-5 /lpf Urine Epithelial Cells (Auto) 0-5 0-5 /lpf Urine Bacteria (Auto) NEG NEG Microbiology Results 01/23/17 Blood Culture, Received Pending 01/23/17 Blood Culture, Received Pending 01/23/17 Urine Culture, Received Pending Impression Assessment and Plan UTI/dehydration/generalized weakness--the patient will be admitted, placed on IV fluids, Zosyn 3.375 mg IV every 12 hours, relative bedrest. We'll follow urine culture sensitivity results. She will need PT/OT assessment, and she is aware that she will not be able to return to her current living situation with the help of comfort keepers as she has been. We'll therefore consult rn social work about ,at least for now, halfway placement. Atrial fibrillation--rate controlled at this time, continue all her routine medications including aspirin 81 mg by mouth daily, clopidogrel 75 mg by mouth daily, metoprolol succinate ER 25 mg by mouth twice a day with hold parameters. Dental bleeding--resolved during last visit. Chronic diverticulitis--we'll continue to follow with [facility]. Next Bladder spasm--continue Ditropan 5 mg twice a day. GERD-- continue Protonix 40 mg daily and Carafate 1 g before meals and at bedtime. Diabetes/hypoglycemia--mellitus blood sugar is relatively low at this point due to her lack of oral intake. She is being given an amp of D50 in the emergency department, and will place her on D5 normal saline with potassium chloride 20 mEq at 125 ML's per hour. We'll hold Novolin N 16 units subcutaneous daily, and we'll place on Accu-Cheks before meals and at bedtime with NovoLog coverage. CHF history--we'll be holding Lasix and placing an IV fluids as noted above. COPD--continue Symbicort, Ventolin HFA and duo nebs. Depression--continue sertraline 25 mg by mouth at bedtime. Hypothyroidism continue levothyroxine sodium at 75 g by mouth daily. Gout continue allopurinol Level of Care Med/Surg Advanced Directives Existing Advance Directive: No Existing Living Will: No Existing Power of Scooter Mechanic: No Resuscitation Status FULL RESUSCITATION VTE Prophylaxis VTE Risk Assessment Done? Y/N: Yes Risk Level: Moderate Given or contraindicated: SCD's
[2017-01-23] MEDS ORDERED: PIPERACILL/TAZOBAC CONSULT ACTIVE PRN (02:45)
--- NOTE | 2017-01-23 04:29 | EMERGENCY ROOM VISIT NOTE ---
History Report prepared by Odilon: Raul Rivera Under the Supervision of: Dr. Miguel Calix M.D. First contact with patient: 23:47 Chief Complaint: WEAKNESS Stated Complaint: WEAKNESS History of Present Illness The patient is a 76 year old female who presents to the Emergency Room with complaints of persistent generalized weakness for the past two days. The patient has been having difficulty walking secondary to weakness. She has not been able to eat for the past several days. Today she only had a cracker to eat with some juice and milk. The patient was discharged from the hospital about one week ago. She was doing well for several days after being discharged. The patient has been taking Zofran for nausea but denies any vomiting. She denies any recent falls or head trauma. She lives alone, but is checked on by her neighbor and home nurses. The patient recently started following up with a new Pharmacy Intake Coordinator, Dr. Lee. The patient spent four months in rehabilitation in the past. As per ED nurse, the patient had an episode of incontinence today. Source of History: patient, nursing staff Onset: two days ago Position: other (generalized) Quality: other (weakness) Timing: other (persistent) Associated Symptoms: + nausea, No vomiting Review of Systems See HPI for pertinent positives & negatives. A total of 10 systems reviewed and were otherwise negative. Past Medical & Surgical Medical Problems: (1) Acute respiratory failure with hypoxia (2) Atrial fibrillation with RVR (3) Collins's palsy (4) CHF (congestive heart failure) (5) Chronic diastolic (congestive) heart failure (6) COPD (chronic obstructive pulmonary disease) (7) COPD exacerbation (8) Diverticulitis (9) Ductal carcinoma in situ (DCIS) of left breast (10) Emphysema of lung (11) Failure of outpatient treatment (12) Frequent falls (13) Gait abnormality (14) GERD (gastroesophageal reflux disease) (15) hyperkalemia, acute kidney failure, fall (16) Hypoglycemia (17) Leucocytosis (18) Pacemaker (19) Pneumonia (20) Sepsis (21) sepsis, UTI, severe hypokalemia Surgical Problems: (1) H/O aortic valve replacement (2) S/P AVR (aortic valve replacement) Family History Cancer Diabetes mellitus Heart disease Hypertension Social History Smoking Status: Never Smoker Alcohol Use: none Drug Use: none Marital Status: Housing Status: lives alone Occupation Status: retired Current/Historical Medications Scheduled Allopurinol (Zyloprim), 300 MG PO DAILY Allopurinol (Zyloprim), 100 MG PO DAILY Budesonide/Formoterol Fumarate (Symbicort 160/4.5 Inhaler ), 2 PUFFS INH BID Cefuroxime Axetil (Ceftin), 250 MG PO Q12 Cholecalciferol (Vitamin D3), 1 CAP PO DAILY Cranberry (Vaccinium Macrocarp (Cranberry), 400 MG PO DAILY Diclofenac Sodium (Topical) (Voltaren 1% Top Gel), 1 APPLN TOP DAILY Docusate Sodium (Docusate Sodium), 100 MG PO BID Ferrous Sulfate (Ferrous Sulfate), 325 MG PO DAILY Furosemide (Lasix), 120 MG PO QAM Insulin Human NPH (Humulin N), SQ UD Levothyroxine Sodium (Levothyroxine Sodium), 75 MCG PO DAILY Magnesium Oxide (Mg Supplement (Magnesium Oxide), 400 MG PO BID Metoprolol Succinate (Metoprolol Succinate ER), 25 MG PO BID Nystatin (Topical) (Nystop), 1 APPLN TD BID Oxybutynin Chloride (Ditropan), 5 MG PO BID Pantoprazole (Protonix), 40 MG PO DAILY Polyvinyl Alcohol (Artificial Tears), 1 DROP OPB QID Potassium Chloride Microencaps (Potassium Chloride Cr), 2 TABS PO BID Pravastatin Sod (Pravastatin Sodium), 40 MG PO QPM Probiotic Product (Align), 4 MG PO DAILY Ranitidine Hcl (Zantac), 150 MG PO BID Scopolamine (Transderm-Scop), 3 MG TD Q72H Sucralfate (Carafate), 1 GM PO ACHS Scheduled PRN Albuterol Hfa (Ventolin Hfa), 2 PUFFS INH Q6H PRN for SOB/Wheezing Guaifenesin Ext Rel (Mucinex Ext Rel), 600 MG PO Q12 PRN for CONGESTION Loratadine (Claritin), 10 MG PO DAILY PRN for ALLERGIC RHINITIS Tramadol (Ultram), 25 MG PO Q4H PRN for SEVERE PAIN Allergies Coded Allergies: Atorvastatin (Verified Allergy, Severe, SWELLING, 01/22/17) Sulfa Antibiotics (Verified Allergy, Severe, MOUTH AND TOUNGE SWELL, ) Angiotensin Receptor Blockers (Verified Allergy, Unknown, Unknown, 01/22/17 ) Losartan (Verified Allergy, Unknown, swelling/reflux, 01/22/17) Morphine and Related (Verified Allergy, Unknown, Unknown, 01/22/17) Quinolones (Verified Allergy, Unknown, Unknown, 01/22/17) Statins (Verified Allergy, Unknown, Unknown, 01/22/17) Sulfonylureas (Verified Allergy, Unknown, Unknown, 01/22/17) Glipizide (Verified Adverse Reaction, Intermediate, NAUSEA, 01/22/17) Metformin (Verified Adverse Reaction, Intermediate, vomiting, 01/22/17) Nitrofurantoin (Verified Adverse Reaction, Intermediate, dizziness,nausea vomiting, 01/22/17) BROWN Inhibitors (Verified Adverse Reaction, Mild, COUGH, 01/22/17) Levofloxacin (Verified Adverse Reaction, Mild, NAUSEA, 01/22/17) Lisinopril (Verified Adverse Reaction, Mild, cough, 01/22/17) Pravastatin (Verified Adverse Reaction, Mild, NAUSEA, 01/22/17) Cephalexin (Verified Adverse Reaction, Unknown, GI SYMPTOMS, 01/22/17) Oxycodone (Verified Adverse Reaction, Unknown, DELIRIUM, 01/22/17) Physical Exam Vital Signs Date Time Temp Pulse Resp B/P Pulse Ox O2 Delivery O2 Flow Rate FiO2 01/23/17 02:00 86 26 99/53 99 01/23/17 01:56 102/59 01/23/17 01:30 89 17 104/60 01/23/17 01:15 97/70 01/23/17 01:00 92 14 110/74 99 01/23/17 00:35 83 18 121/86 100 Room Air 01/23/17 00:04 104 80/51 98 86/61 01/22/17 23:58 36.6 79 18 89/67 100 Room Air 01/22/17 23:51 87 Physical Exam GENERAL: Patient is chronically unwell appearing, in minimal distress, tired appearing. HEENT: No acute trauma, normocephalic atraumatic, mucous membranes moist, no nasal congestion, no scleral icterus. NECK: No stridor, no adenopathy, no meningismus, trachea is midline. LUNGS: No dyspnea. Clear to auscultation and equal bilaterally. No wheeze, no rhonchi. HEART: Irregular rate and rhythm with a mild systolic murmur. ABDOMEN: Soft, nontender, bowel sounds positive, no masses appreciated, no peritonitis. Wound dressing over the lower abdomen. BACK: No midline tenderness, no CVA tenderness EXTREMITIES: Normal motion all extremities, no cyanosis. Edema of the bilateral legs and arms. NEUROLOGIC: Alert and oriented, no acute motor or sensory deficits, no focal weakness, cranial nerves grossly intact. SKIN: No rash, no jaundice, no diaphoresis. Medical Decision & Procedures ER Provider Diagnostic Interpretation: X ray results are stated below per my interpretation. ONE VIEW CHEST: No infiltrate, no effusion, ICD in right chest with leads intact. Laboratory Results 01/23/17 00:00 Red Blood Count 3.16, Mean Corpuscular Volume 87.7, Mean Corpuscular Hemoglobin 28.5, Mean Corpuscular Hemoglobin Concent 32.5, Mean Platelet Volume 9.0, Neutrophils (%) (Auto) 75.8, Lymphocytes (%) (Auto) 13.8, Monocytes (%) (Auto) 8.4, Eosinophils (%) (Auto) 0.0, Basophils (%) (Auto) 0.1, Neutrophils # (Auto) 17.44, Lymphocytes # (Auto) 3.17, Monocytes # (Auto) 1.94, Eosinophils # (Auto) 0.01, Basophils # (Auto) 0.03 01/23/17 00:00 Test 01/23/17 00:00 01/23/17 00:31 01/23/17 01:55 White Blood Count 23.02 K/uL (4.8-10.8) Red Blood Count 3.16 M/uL (4.2-5.4) Hemoglobin 9.0 g/dL (12.0-16.0) Hematocrit 27.7 % (37-47) Mean Corpuscular Volume 87.7 fL (80-100) Mean Corpuscular Hemoglobin 28.5 pg (25-34) Mean Corpuscular Hemoglobin Concent 32.5 g/dl (32-36) Platelet Count 513 K/uL (130-400) Mean Platelet Volume 9.0 fL (7.4-10.4) Neutrophils (%) (Auto) 75.8 % Lymphocytes (%) (Auto) 13.8 % Monocytes (%) (Auto) 8.4 % Eosinophils (%) (Auto) 0.0 % Basophils (%) (Auto) 0.1 % Neutrophils # (Auto) 17.44 K/uL (1.4-6.5) Lymphocytes # (Auto) 3.17 K/uL (1.2-3.4) Monocytes # (Auto) 1.94 K/uL (0.11-0.59) Eosinophils # (Auto) 0.01 K/uL (0-0.5) Basophils # (Auto) 0.03 K/uL (0-0.2) RDW Standard Deviation 54.4 fL (36.4-46.3) RDW Coefficient of Variation 17.2 % (11.5-14.5) Immature Granulocyte % (Auto) 1.9 % Immature Granulocyte # (Auto) 0.43 K/uL (0.00-0.02) Prothrombin Time 14.3 SECONDS (9.0-12.0) Prothromb Time International Ratio 1.3 (0.9-1.1) Activated Partial Thromboplast Time 46.8 SECONDS (21.0-31.0) Partial Thromboplastin Ratio 1.8 Anion Gap 13.0 mmol/L (3-11) Est Creatinine Clear Calc Drug Dose 48.5 ml/min Estimated GFR () 63.8 Estimated GFR (Non- 55.1 BUN/Creatinine Ratio 48.2 (10-20) Calcium Level 8.1 mg/dl (8.5-10.1) Phosphorus Level 3.2 mg/dl (2.5-4.9) Magnesium Level 2.6 mg/dl (1.8-2.4) Total Bilirubin 0.2 mg/dl (0.2-1) Direct Bilirubin < 0.1 mg/dl (0-0.2) Aspartate Amino Transf (AST/SGOT) 5 U/L (15-37) Alanine Aminotransferase (ALT/SGPT) 10 U/L (12-78) Alkaline Phosphatase 108 U/L (45-117) Total Creatine Kinase 10 U/L (26-192) Creatine Kinase MB 0.8 ng/ml (0.5-3.6) Creatine Kinase MB Ratio 8.0 (0-3.0) Troponin I < 0.015 ng/ml (0-0.045) Total Protein 5.0 gm/dl (6.4-8.2) Albumin 2.0 gm/dl (3.4-5.0) Lipase 46 U/L (73-393) Urine Color YELLOW Urine Appearance CLEAR (CLEAR) Urine pH 7.0 (4.5-7.5) Urine Specific [place] 1.004 (1.000-1.030) Urine Protein NEG (NEG) Urine Glucose (UA) NEG (NEG) Urine Ketones NEG (NEG) Urine Occult Blood NEG (NEG) Urine Nitrite NEG (NEG) Urine Bilirubin NEG (NEG) Urine Urobilinogen NEG (NEG) Urine Leukocyte Esterase MODERATE (NEG) Urine WBC (Auto) >30 /hpf (0-5) Urine RBC (Auto) 0-4 /hpf (0-4) Urine Hyaline Casts (Auto) 1-5 /lpf (0-5) Urine Epithelial Cells (Auto) 0-5 /lpf (0-5) Urine Bacteria (Auto) NEG (NEG) Bedside Lactic Acid Venous 0.64 mmol/L (0.90-1.70) Laboratory results as reviewed by me. Medications Administered Medications (Trade) Dose Ordered Sig/Vibha Route Start Time Stop Time Status Last Admin Dose Admin Sodium Chloride (Nss 500ml) 500 ml @ 999 mls/hr Q31M STAT IV 01/23/17 00:11 01/23/17 00:41 DC 01/23/17 00:11 999 MLS/HR Piperacillin Sod/ Tazobactam Sod (Zosyn Iv) 4.5 gm NOW STAT IV 01/23/17 01:18 01/23/17 01:19 DC 01/23/17 02:03 4.5 GM Dextrose (Dextrose 50% 50ML Syringe) 50 ml NOW STAT IV 01/23/17 01:37 01/23/17 01:38 DC 01/23/17 02:02 50 ML ECG Indication: weakness Rate (beats per minute): 95 Rhythm: atrial fibrillation Findings: PVC, no acute ischemic change, other (periodic ventricular paced beats as well as PVCs) ED Course 2352: The patient was evaluated in room B2. A complete history and physical exam was performed. 0011: NSS 500 ml @ 999 mls/hr. 0020: The patient's blood pressure dropped to 50/20. She was put in the Trendelenburg position and given a liter of fluid. Her blood pressure increased to 95 systolically. 0118: Zosyn 4.5 gm IV. 0130: [facility] Service paged. 0137: Dextrose 50% 50 ml IV. 0145: Spoke with Dr. Jain, [facility]. The patient will be evaluated. Medical Decision Differential: Sepsis, Infectious (UTI/Pneumonia/Meningitis/etc), Metabolic/ Electrolyte Abnormality, Cardiac, Hepatic, Endocrine, Toxicologic, Neurologic, amongst other pathologies entertained. 76 yr old female brought in from home. Has been in chair at home all evening due to inability to get up as she is so weak. Just released from hospital a few days ago with rapidly progressing weakness. Hypotensive on arrival which fortunately resolved with initial fluid bolus. With known CHF issues will hold on full resus as it would likely kill her. Lactic acid OK. Blood cultures obtained. UA via cath consistent with UTI which may be cause of weakness and hypotension, though I feel likely there is element of dehydration, along with lack of eating causing some hypoglycemia as well. To weak to even sit up. She is not doing well at home and will likely need custodial once stable, though she is not yet stable for outpatient/NH at this time. Consults Time Called: 129 Consulting Physician: Dr. Jain, [facility]. Returned Call: [phone]: Spoke with Dr. Jain, [facility]. The patient will be evaluated. Impression Primary Impression: UTI (urinary tract infection) Additional Impressions: Hypotension Hypoglycemia Failure to thrive General weakness Scribe Attestation The scribe's documentation has been prepared under my direction and personally reviewed by me in its entirety. I confirm that the note above accurately reflects all work, treatment, procedures, and medical decision making performed by me. Departure Information Dispostion Being Evaluated By Hospitalist Referrals Jesus Amaya M.D. (PCP) Patient Instructions My [facility] Health Problem Qualifiers Primary Impression: UTI (urinary tract infection) Urinary tract infection type: acute cystitis Hematuria presence: without hematuria Qualified Codes: N30.00 - Acute cystitis without hematuria Additional Impressions: Hypotension Hypotension type: unspecified hypotension type Qualified Codes: I95.9 - Hypotension, unspecified Failure to thrive Failure to thrive age range: in adult Qualified Codes: R62.7 - Adult failure to thrive
[2017-01-23] MEDS ORDERED: ONDANSETRON INJ 2 MG/ML 2 ML VIAL IV PRN ×3 (04:45→15:30)
[2017-01-23] MEDS: TRAMADOL HCL 50 MG TAB PO PRN ×2 (04:54→09:06)
[2017-01-23] MEDS: D5NSS + 20MEQ KCL 1,000 ML IV SCH ×2 (04:55→11:46)
[2017-01-23] MEDS ORDERED: LEVOTHYROXINE 75 MCG TAB PO SCH (06:00)
--- NOTE | 2017-01-23 06:50 | DIAGNOSTIC IMAGING REPORT ---
CHEST ONE VIEW PORTABLE CLINICAL HISTORY: Generalized Weakness COMPARISON STUDY: 01/10/2017 FINDINGS: The heart is at the upper limits of normal in size. There are postsurgical changes of a midline sternotomy and valvular replacement. There is a right subclavian dual-chamber central venous pacemaker present. There is no failure. There is no focal pulmonary consolidation. No pleural effusions are visualized.[ IMPRESSION: No active disease in the chest. Electronically signed by: Jose Vázquez M.D. 01/23/2017 6:48 AM Dictated Date/Time: 01/23/2017 6:48 AM
[2017-01-23] MEDS: SUCRALFATE 1 GM TAB PO SCH ×3 (07:00→11:00)
[2017-01-23] MEDS: LACTOBACILLUS ACIDOPHILUS (FLORANEX) TAB PO SCH ×3 (07:30→11:30)
[2017-01-23] MEDS ORDERED: PIPERACILL/TAZOBAC IV 4.5 GM in DEXTROSE 5% 100ML 100 ML IV SCH (08:00)
[2017-01-23] MEDS: OXYBUTYNIN CHLORIDE 5 MG TAB PO SCH ×2 (08:43→09:00)
[2017-01-23] MEDS: POTASSIUM CHLORIDE 20 MEQ TABCR PO SCH ×2 (08:43→13:45)
[2017-01-23] MEDS: CHOLECALCIFEROL 1000 INTER.UNIT TAB PO SCH ×2 (08:43→09:00)
[2017-01-23] MEDS: ALLOPURINOL 100 MG TAB PO SCH ×2 (08:44→09:00)
[2017-01-23] MEDS: DOCUSATE SODIUM 100 MG CAP PO SCH ×2 (08:44→09:00)
[2017-01-23] MEDS: FERROUS SULFATE 325 MG TAB PO SCH ×2 (08:44→09:00)
[2017-01-23] MEDS: ALLOPURINOL 300 MG TAB PO SCH ×2 (08:44→09:00)
[2017-01-23] MEDS: ARTIFICIAL TEARS OP SOLN OPB SCH ×6 (08:45→17:00)
[2017-01-23] MEDS ORDERED: BUDESONIDE/FORMOTEROL FUMARATE 160/4.5 60 PUFFS/INHALER INH SCH (09:00)
[2017-01-23] MEDS ORDERED: NYSTATIN POWDER 15GM BTL EXT SCH (09:00)
[2017-01-23] MEDS ORDERED: METOPROLOL SUCC 25MG EXT REL TAB PO SCH (09:00)
[2017-01-23] MEDS ORDERED: PANTOprazole SOD 40 MG TAB PO SCH (09:00)
[2017-01-23] MEDS ORDERED: RANITIDINE HCL 150 MG TAB PO SCH (09:00)
[2017-01-23] MEDS ORDERED: MAGNESIUM OXIDE 400 MG TAB PO SCH (09:00)
[2017-01-23] MEDS ORDERED: ONDANSETRON INJ 2 MG/ML 2 ML VIAL IV ONE (09:46)
[2017-01-23] MEDS ORDERED: OPTIRAY 320 IV PRN (10:00)
[2017-01-23] MEDS ORDERED: ONDANSETRON INJ 8 MG in DEXTROSE 5% 50ML 50 ML IV PRN (10:15)
[2017-01-23] MEDS ORDERED: HYDROmorphone INJ 0.5 MG/0.5 ML SYR ONE (11:40)
[2017-01-23] MEDS ORDERED: HYDROmorphone INJ 0.5 MG/0.5 ML SYR IV PRN (11:45)
[2017-01-23] MEDS ORDERED: HYDROmorphone INJ 1 MG/ML SYR IV PRN (11:45)
--- NOTE | 2017-01-23 13:00 | Progress Note ---
Subjective Date of Service: Jan 23, 2017. Subjective this pt has significant abdominal pain and a distended abdomen, pain is mostly in the RUQ is on IV zosyn for uti that will also treat any gb issues CT results are pending formallly but concern for free air and ruptured viscus Pt decompensated early in the afternoon, prompting moving to ICU and requiring emergent intubation and central venous access to administer additional fluid bolus and pressors during this time the family a niece without formal poa, arrived and is at bedside and updated [place] is poor at this time for the patient to make it to the OR Problem List Medical Problems: (1) Anticoagulant long-term use Status: Acute (2) Bilateral pneumonia Status: Acute (3) Bronchitis Status: Acute (4) Bronchitis Status: Acute (5) Cellulitis Status: Acute (6) Congestive heart failure Status: Acute (7) Dehydration Status: Acute (8) Failure of outpatient treatment Status: Acute (9) Failure to thrive Status: Acute (10) Failure to thrive Status: Acute (11) Fall Status: Acute (12) Fall Status: Acute (13) General weakness Status: Acute (14) Generalized weakness Status: Acute (15) Generalized weakness Status: Acute (16) H. pylori infection Status: Acute (17) Hypotension Status: Acute (18) Hypoxia Status: Acute (19) Intractable nausea and vomiting Status: Acute (20) Intractable vomiting Status: Acute (21) Leukocytosis Status: Acute (22) Renal insufficiency Status: Acute (23) Supratherapeutic INR Status: Acute (24) Theophylline toxicity Status: Acute (25) Urinary tract infection Status: Acute (26) UTI (urinary tract infection) Status: Acute (27) UTI (urinary tract infection) Status: Acute (28) Vomiting and diarrhea Status: Acute (29) Weakness Status: Acute (30) Weakness Status: Acute (31) Weakness Status: Acute Review of Systems PT decompensated and was unresponsive and unable to obtain ROS Objective Vital Signs Date Time Temp Pulse Resp B/P Pulse Ox O2 Delivery O2 Flow Rate FiO2 01/23/17 07:04 36.1 90 22 95/66 100 Room Air 01/23/17 05:02 92 24 102/71 01/23/17 04:00 Room Air 01/23/17 03:13 36.3 84 20 80/56 97 Room Air 01/23/17 02:30 99/61 01/23/17 02:20 79 15 98 01/23/17 02:15 105/60 01/23/17 02:00 86 26 99/53 99 01/23/17 01:56 102/59 01/23/17 01:30 89 17 104/60 01/23/17 01:15 97/70 01/23/17 01:00 92 14 110/74 99 01/23/17 00:35 83 18 121/86 100 Room Air 01/23/17 00:04 104 80/51 98 86/61 01/22/17 23:58 36.6 79 18 89/67 100 Room Air 01/22/17 23:51 87 Physical Exam General Appearance: + severe distress, + obese Respiratory/Chest: + respiratory distress, + decreased breath sounds Cardiovascular: + tachycardia, + systolic murmur Abdomen: + abnormal bowel sounds, + distended, + guarding, + rebound, + tenderness Extremities: + pedal edema Neurologic/Psychiatric: + pertinent finding (unresponsive) Laboratory Results Last 24 Hours Test 01/23/17 00:00 01/23/17 00:31 01/23/17 01:55 01/23/17 02:42 White Blood Count 23.02 K/uL Red Blood Count 3.16 M/uL Hemoglobin 9.0 g/dL Hematocrit 27.7 % Mean Corpuscular Volume 87.7 fL Mean Corpuscular Hemoglobin 28.5 pg Mean Corpuscular Hemoglobin Concent 32.5 g/dl Platelet Count 513 K/uL Mean Platelet Volume 9.0 fL Neutrophils (%) (Auto) 75.8 % Lymphocytes (%) (Auto) 13.8 % Monocytes (%) (Auto) 8.4 % Eosinophils (%) (Auto) 0.0 % Basophils (%) (Auto) 0.1 % Neutrophils # (Auto) 17.44 K/uL Lymphocytes # (Auto) 3.17 K/uL Monocytes # (Auto) 1.94 K/uL Eosinophils # (Auto) 0.01 K/uL Basophils # (Auto) 0.03 K/uL RDW Standard Deviation 54.4 fL RDW Coefficient of Variation 17.2 % Immature Granulocyte % (Auto) 1.9 % Immature Granulocyte # (Auto) 0.43 K/uL Prothrombin Time 14.3 SECONDS Prothromb Time International Ratio 1.3 Activated Partial Thromboplast Time 46.8 SECONDS Partial Thromboplastin Ratio 1.8 Sodium Level 140 mmol/L Potassium Level 3.2 mmol/L Chloride Level 105 mmol/L Carbon Dioxide Level 22 mmol/L Anion Gap 13.0 mmol/L Blood Urea Nitrogen 48 mg/dl Creatinine 1.00 mg/dl Est Creatinine Clear Calc Drug Dose 48.5 ml/min Estimated GFR () 63.8 Estimated GFR (Non- 55.1 BUN/Creatinine Ratio 48.2 Random Glucose 56 mg/dl Calcium Level 8.1 mg/dl Phosphorus Level 3.2 mg/dl Magnesium Level 2.6 mg/dl Total Bilirubin 0.2 mg/dl Direct Bilirubin < 0.1 mg/dl Aspartate Amino Transf (AST/SGOT) 5 U/L Alanine Aminotransferase (ALT/SGPT) 10 U/L Alkaline Phosphatase 108 U/L Total Creatine Kinase 10 U/L Creatine Kinase MB 0.8 ng/ml Creatine Kinase MB Ratio 8.0 Troponin I < 0.015 ng/ml Total Protein 5.0 gm/dl Albumin 2.0 gm/dl Lipase 46 U/L Urine Color YELLOW Urine Appearance CLEAR Urine pH 7.0 Urine Specific [place] 1.004 Urine Protein NEG Urine Glucose (UA) NEG Urine Ketones NEG Urine Occult Blood NEG Urine Nitrite NEG Urine Bilirubin NEG Urine Urobilinogen NEG Urine Leukocyte Esterase MODERATE Urine WBC (Auto) >30 /hpf Urine RBC (Auto) 0-4 /hpf Urine Hyaline Casts (Auto) 1-5 /lpf Urine Epithelial Cells (Auto) 0-5 /lpf Urine Bacteria (Auto) NEG Bedside Lactic Acid Venous 0.64 mmol/L Bedside Glucose 161 mg/dl Test 01/23/17 05:02 01/23/17 06:50 Bedside Glucose 116 mg/dl 111 mg/dl Assessment and Plan 76 F recently discharged after dental bleeding associated with Anticoagulation for A FIB, Aovr and defibrilator presents with weakness and ambulatory dysfunction metabolic encephalopathy initially treated for UTI poa, Zosyn 3.375 mg IV every 12 hours, Has intense abdominal pain and CT performed shows free air, concern for sigmoid mass and ascites or stool in abdominal cavity developed septic shock, moved to ICU and currently undergoing attempts at stabilizing hemodynamics, surgeon has been at bedside since approximately 1430 anesthesia is assessing patient but patient appears hemodynamically unstable to induce anesthesia niece updated and aware of gravity of situation. Atrial fibrillation-now with RVR usually-rate controlled metoprolol succinate ER 25 mg bid, thromboembolic prevention aspirin 81 mg by mouth daily, clopidogrel 75 mg by mouth daily, Diabetes/hypoglycemia-- blood sugar low due to her lack of oral intake. Chronic systolic HF history--hold Lasix and placing an IV fluids 60 minutes of critical care time usual home problems COPD--stable Symbicort, Ventolin HFA and duo nebs. Chronic diverticulitis--stable Bladder spasm-- Ditropan 5 mg twice a day. GERD-- Protonix 40 mg daily and Carafate 1 g before meals and at bedtime. Depression-- sertraline 25 mg by mouth at bedtime. Hypothyroidism levothyroxine sodium at 75 g by mouth daily. Gout allopurinol
--- NOTE | 2017-01-23 13:01 | DIAGNOSTIC IMAGING REPORT ---
CT ABD/PELVIS IV AND ORAL CONT CLINICAL HISTORY: RIGHT UPPER QUADRANT ABDOMINAL PAIN COMPARISON STUDY: 01/11/2017 TECHNIQUE: Following the IV administration of 92 mL of Optiray-320, CT scan of the abdomen and pelvis was performed from the lung bases to the proximal femurs. Images are reviewed in the axial, sagittal, and coronal planes. IV contrast was administered without complication. CT DOSE: 1562.84 mGy.cm FINDINGS: Lower chest: The heart is enlarged. There are coronary artery calcifications present. There is a trace left pleural effusion. There is bibasal atelectasis. Liver: There is a stable 7 mm hypodensity within the right hepatic lobe. Gallbladder: The gallbladder is mildly distended. No calculi are visualized. Spleen: Normal in size and attenuation. Pancreas: Unremarkable. Adrenal glands: There is bilateral adrenal gland thickening, similar to the prior study. Kidneys: There are few tiny cortical calcifications. No solid renal masses are visualized. There is no hydronephrosis. Bowel: There is a distended stool-filled colon. The cecum measures 9 cm in diameter. There is sigmoid wall thickening. There is a fistulous tract extending to the anterior abdominal wall. This extends to the left anterior bladder wall which is thickened. This was previously felt to be secondary to a diverticular abscess. Peritoneum: There is ascites. There is free intraperitoneal air. The absence of recent surgery, the findings suggest a perforated viscus. Surgical consultation is recommended. Vasculature: The abdominal aorta is normal in course and caliber. Adenopathy: None. Pelvic viscera: The uterus appears surgically absent. Skeletal structures: No destructive osseous lesions are seen. IMPRESSION: 1. Interval development of ascites and free intraperitoneal air. In the absence of recent surgery, the findings are viewed as suspicious for a perforated viscus. Surgical consultation is recommended. 2. Sigmoid wall thickening with associated luminal narrowing, post inflammatory versus neoplastic. The colon proximal to this is distended and stool-filled. There is pneumatosis within the ascending colon. The cecum measures 9 cm. GI consultation should be considered to exclude a sigmoid carcinoma. 3. Fistulous tract extending from the lower anterior abdominal wall to the left bladder dome. There is mild bladder wall thickening. On prior studies, this was felt to be secondary to a peridiverticular abscess. No air is visualized within the bladder Electronically signed by: Jose Vázquez M.D. 01/23/2017 1:00 PM Dictated Date/Time: 01/23/2017 12:48 PM
[2017-01-23] MEDS ORDERED: SODIUM CHLORIDE 0.9% 500ML 500 ML IV SCH (13:30)
[2017-01-23] MEDS ORDERED: POTASSIUM CHLR 10 MEQ / WTR 10 MEQ in PREMIXED WATER 100 ML IV SCH (14:00)
[2017-01-23 14:16] LABS: ARTERIAL BLD GAS O2 SATURATION 97.7 % (90-95); ARTERIAL BLOOD GAS BASE EXCESS -9.9 mEq/L (-9-1.8); ARTERIAL BLOOD GAS HCO3 13 mmol/L (19-24); ARTERIAL BLOOD GAS PO2 112 mm/Hg (80-95); ARTERIAL BLOOD GAS pH 7.46 (7.35-7.45)
[2017-01-23 14:20] LABS: ALLEN TEST POS (POS); O2 ADMINISTRATION ROOM AIR
[2017-01-23] MEDS ORDERED: NALOXONE HCL 0.4 MG/1 ML VIAL/CARP ONE (14:55)
[2017-01-23] MEDS ORDERED: [UNRECOGNIZED DRUG - OTHER] ONE (14:58)
[2017-01-23] MEDS ORDERED: NALOXONE ONE (14:58)
[2017-01-23] MEDS ORDERED: RAPID SEQUENCE INDUCTION BAG ONE (15:09)
[2017-01-23] MEDS ORDERED: NURSING VERBAL MED ORDER ONE ×4 (15:30→16:00)
[2017-01-23] MEDS ORDERED: NOREPINEPHRINE BIT INJ 8 MG in DEXTROSE 5% 500ML 500 ML IV PRN ×2 (15:30→16:46)
[2017-01-23] MEDS ORDERED: LORAZEPAM 2 MG/ML 1 ML VIAL IV PRN ×3 (15:30→17:15)
[2017-01-23] MEDS ORDERED: SODIUM BICARB 8.4% INJ 50 MEQ/50 ML SYR IV ONE ×2 (15:32→16:38)
[2017-01-23] MEDS ORDERED: VASOPRESSIN INJ 50 UNITS in SODIUM CHLORIDE 0.9% 500ML 500 ML IV SCH (16:00)
[2017-01-23 16:04] LABS: HEMATOCRIT 21.1 % (37-47); MEAN CELL VOLUME 89.4 fL (80-100); MEAN CORPUSCULAR HEMOGLOBIN 28.8 pg (25-34); MEAN CORPUSCULAR HGB CONC 32.2 g/dl (32-36); MEAN PLATELET VOLUME 8.8 fL (7.4-10.4); PLATELET COUNT 363 K/uL (130-400); RED BLOOD COUNT 2.36 M/uL (4.2-5.4)
[2017-01-23 16:14] LABS: INR 1.7 (0.9-1.1); PROTHROMBIN TIME (PATIENT) 18.4 SECONDS (9.0-12.0)
[2017-01-23] MEDS ORDERED: EPINEPHRINE HCL 4 MG in DEXTROSE 5% 250ML IV PRN (16:15)
--- NOTE | 2017-01-23 16:15 | DIAGNOSTIC IMAGING REPORT ---
CHEST ONE VIEW PORTABLE CLINICAL HISTORY: Respiratory failure COMPARISON STUDY: 01/23/2017 FINDINGS: There is a right subclavian dual-chamber central venous pacemaker present. There is an apparent right internal jugular central venous catheter. There is been interval placement of endotracheal tube which is positioned approximately 3 cm above the iris. There is a nasogastric tube which passes into the stomach. There is an overlying cardiac electrode. There is free intraperitoneal air. There is no failure. There is no lobar consolidation.[ IMPRESSION: 1. Free intraperitoneal air 2. Interval placement of endotracheal tube 3 cm above the iris 3. Nasogastric tube within the stomach 4. Right internal jugular central venous catheter projected over the superior vena cava. No evidence of pneumothorax Electronically signed by: Jose Vázquez M.D. 01/23/2017 4:14 PM Dictated Date/Time: 01/23/2017 4:12 PM
--- NOTE | 2017-01-23 16:17 | DIAGNOSTIC IMAGING REPORT ---
KUB CLINICAL HISTORY: Orogastric tube placement COMPARISON STUDY: 12/29/2015 FINDINGS: The recently placed orogastric tube passes into the stomach. The tip is not visualized on the provided image. There are suspected free intraperitoneal air. The inferior aspect of the abdomen is not included on the study. IMPRESSION: 1. Free intraperitoneal air 2. The recently placed orogastric tube passes into the stomach Electronically signed by: Jose Vázquez M.D. 01/23/2017 4:15 PM Dictated Date/Time: 01/23/2017 4:14 PM
[2017-01-23 16:27] LABS: ALT/SGPT 9 U/L (12-78); BLOOD UREA NITROGEN 45 mg/dl (7-18); BUN/CREATININE RATIO 37.3 (10-20); CALCIUM 6.9 mg/dl (8.5-10.1); CARBON DIOXIDE 12 mmol/L (21-32); CHLORIDE 113 mmol/L (98-107); GLUCOSE 177 mg/dl (70-99); MAGNESIUM 3.6 mg/dl (1.8-2.4); POTASSIUM 4.3 mmol/L (3.5-5.1); SODIUM 144 mmol/L (136-145)
[2017-01-23 16:40] LABS: ANISOCYTOSIS PRESENT; COMPLETE YES; ECHINOCYTES 1+; LYMPH ABS # 3.15 K/uL (1.2-3.4); LYMPHOCYTE % 23.5 %; NEUTROPHILS % 75.6 %; POLYCHROMASIA 1+; TOXIC GRANULATION 1+; VACUOLIZATION OCCASIONAL
[2017-01-23] MEDS ORDERED: EpINEphrine HCL INJ 4 MG in DEXTROSE 5% 250ML 250 ML IV STA (16:46)
[2017-01-23] MEDS ORDERED: VASOPRESSIN INJ 50 UNITS in SODIUM CHLORIDE 0.9% 500ML 500 ML IV STA (16:46)
[2017-01-23] MEDS ORDERED: FENTANYL 1250MCG/250ML NSS 250 ML IV PRN (16:46)
[2017-01-23] MEDS ORDERED: FENTANYL CITRATE INJ 50 MCG/1 ML 2 ML VIAL IV ONE (17:00)
[2017-01-23] MEDS ORDERED: SODIUM CHLORIDE 0.9% 1000ML 1,000 ML IV SCH (17:00)
[2017-01-23] MEDS ORDERED: MoRPHine SULFATE 4 MG/ML 1 ML CARP\\VIAL ONE (17:02)
[2017-01-23] MEDS ORDERED: MoRPHine SULFATE 2 MG/ML CARP ONE (17:03)
[2017-01-23] MEDS ORDERED: MoRPHine SULFATE 10 MG/ML CARP/VIAL IV STA (17:04)
[2017-01-23] MEDS ORDERED: ONDANSETRON INJ 2 MG/ML 2 ML VIAL IV STA (17:09)
[2017-01-23] MEDS ORDERED: LORAZEPAM 2 MG/ML 1 ML VIAL IV STA (17:09)
[2017-01-23 17:11] LABS: ALB/GLOB RATIO 0.4 (0.9-2); ALKALINE PHOSPHATASE 86 U/L (45-117); PHOSPHORUS 3.6 mg/dl (2.5-4.9)
[2017-01-23 17:14] LABS: ISTAT ARTERIAL BLOOD GAS HCO3 21 meq/L (19-24); ISTAT ARTERIAL BLOOD GAS PCO2 30 mmHg (35-46); ISTAT ARTERIAL BLOOD GAS PO2 > 420 mmHg (80-95); ISTAT ARTERIAL BLOOD GAS pH 7.43 (7.35-7.45); ISTAT CARBON DIOXIDE 21 mEq/l (24-31); ISTAT DELIVERY SYSTEM Ventilator; ISTAT FIO2 100 %; ISTAT PEEP 8; ISTAT RATE 18; ISTAT SITE Art Line; VE 8.1; Vt 450
[2017-01-23] MEDS ORDERED: MoRPHine SULF/NSS 250MG/250ML 250 ML IV PRN (17:15)
[2017-01-23] MEDS ORDERED: MoRPHine SULFATE 4 MG/ML 1 ML CARP\\VIAL IV PRN (17:15)
--- NOTE | 2017-01-23 17:25 | Progress Note ---
Progress Note Date of Service Jan 23, 2017. Progress Note Jewel Sorter: Patient arrived in ICU the poor respiratory effort, hypotensive and with 2 small peripheral IV's. I emergently intubated her, placed a RIJ TLC and R radial arterial line without complications. Procedure notes to follow as well as formal consult. Discussion with Stefanie STAPLETON, who has decided that the patient would not want to undergo emergency surgery for her perforated viscus. She has been struggling for years with her health and her had a colostomy before he . She has been unhappy with her quality of life. Goals of care are changing to comfort. I have explained the use of morphine and ativan at end of life as well as with terminal extubation. Questions were answered and support was provided.
[2017-01-23] MEDS ORDERED: MoRPHine SULFATE 4 MG/ML 1 ML CARP\\VIAL IV STA (17:36)
[2017-01-23 17:46] LABS: AST/SGOT < 3 U/L (15-37)
--- NOTE | 2017-01-23 18:53 | Progress Note ---
Progress Note Date of Service Jan 23, 2017. Progress Note Imaging Assistant: Patient was terminally extubated and at 18:45. She was in PEA. Niece, Stefanie and other family at bedside.
--- NOTE | 2017-01-23 19:15 | Procedure Note ---
Procedure Note Date of Service Jan 23, 2017. Procedure Note Utilization Manager: Patient arrived in the ICU lethargic with poor respiratory effort. She was bagged with 100% FIO2 while staff and equipment for intubation were gathered. Saturations were not able to be obtained. She was intubated by me using a 3.0 glidescope blade and a 7.5 ETT. BS equal bilaterally and CO2 detector +. The tube was then secured into place. F/U CXR with tip in satisfactory position.
--- NOTE | 2017-01-23 19:21 | Procedure Note ---
Procedure Note Procedure Date Jan 23, 2017. Procedure Description Procedure Name: Right internal jugular triple lumen catheter Procedure time out: side/site verified Consent obtained: emergent consent implied Performed by: attending Indications: other Contraindications: none Description: The patient was placed supine. I donned a hat, mask, sterile gown and sterile glove and prepped the R neck with chlorhexidine prior to draping her in sterile fashion. Landmarks were identified and the 2cc of 1% lidocaine was used to numb the skin and the vein was cannulated very briefly with that 22 g needle. I then used an 18g needle and cannulated the vein on the first pass. A wire was placed through the needle and the needle was removed. The vein was then dilated after a jerry was made in the skin adjacent to the wire. The TLC was placed over the wire and the wire was removed. The line was flushed and sutured into place. CXR without PTX and tip in SVC. Complications: none Patient tolerated procedure: well Post-procedure vital signs: other Comments: Patient was hypotensive throughout - before and after due to intrabodominal sepsis.
--- NOTE | 2017-01-23 19:26 | Procedure Note ---
Procedure Note Procedure Date Jan 23, 2017. Procedure Description Procedure Name: Right radial arterial line Procedure time out: side/site verified Consent obtained: emergent consent implied Performed by: attending Indications: other Contraindications: none Description: The right wrist was prepped with chlorhexidine after I donned a hat mask sterile gown and gloves. It was then draped in sterile fashion. I used the U/ S to identify the the R radial artery and placed a 20g Arrow catheter into the artery after cannulating it and passing a wire through the needle. The catheter had to be adjusted over the wire once but had good flow after that adjustment. The line was sutured into place with 3.0 silk after being attached to the transducer tubing. It was dressed by the RN. Complications: none Patient tolerated procedure: well
[2017-01-23] MEDS ORDERED: CHLORHEXIDINE GLUCONATE 0.12% 480 ML MT SCH (21:00)
[2017-01-23] MEDS ORDERED: PRAVASTATIN SOD 40 MG TAB PO SCH (21:00)
--- NOTE | 2017-01-24 05:45 | CRITICAL CARE CONSULTATION ---
DATE OF CONSULTATION: 01/23/2017 CHIEF COMPLAINT: Weakness. HISTORY OF PRESENT ILLNESS: The patient is a 76-year-old woman with multiple medical problems such as atrial fibrillation, congestive heart failure, chronic obstructive pulmonary disease and status post pacemaker placement among other maladies, who presented to the Emergency Department early this morning with complaints of weakness. She was having trouble walking and was experiencing some nausea. She was recently also discharged from the hospital. In the Emergency Department, labs were drawn and she was given 500 mL of normal saline, Zosyn and D50. She was admitted to the hospital with Zosyn to treat a urinary tract infection. At some point, she must have developed abdominal pain as she was seen by Dr. Michael today and underwent CT scan of the abdomen which showed ascites and free intraperitoneal air, sigmoid wall thickening with associated luminal narrowing with pneumatosis within the ascending colon. The cecum measured 9 cm. There is also a fistulous tract extending from the lower anterior abdominal wall to the left bladder dome. General surgery service was consulted and she was continued on IV fluids. She eventually became hypotensive and had poor respiratory effort necessitating transfer to the intensive care unit. She arrived in the intensive care unit looking pale and with very poor respiratory effort. I immediately made preparations and intubated her with a 7.5 endotracheal tube using the GlideScope. She received 2 liters of IV fluid via two peripheral IVs while I inserted a right internal jugular triple lumen catheter. I also placed a right radial arterial line. She required escalating doses of vasopressor including Levophed, vasopressin and epinephrine boluses as well as an effusion. PAST MEDICAL HISTORY: Diastolic failure, chronic obstructive pulmonary disease, breast cancer, COPD, gastroesophageal reflux disease and pacemaker. PAST SURGICAL HISTORY: Status post aortic valve replacement. ALLERGIES: Numerous and are as documented. They have been reviewed. OUTPATIENT MEDICATIONS: Albuterol, allopurinol, Symbicort, Ceftin, vitamin D3, cranberry, Voltaren, Colace, ferrous sulfate, Lasix, Mucinex, insulin, levothyroxine, Claritin, magnesium, Lopressor, Nystatin, Ditropan, Protonix, artificial tears, potassium, pravastatin, probiotic, ranitidine, scopolamine, sucralfate, and tramadol. SOCIAL HISTORY: She lives alone with caretakers. She does not drink or smoke. She is . FAMILY HISTORY: Noncontributory. REVIEW OF SYSTEMS: Not obtainable secondary to being critically ill and on the ventilator. PHYSICAL EXAMINATION: GENERAL: This is an obese woman lying in bed, pale, obtunded and with very poor respiratory effort. VITAL SIGNS: Temperature 36.5, heart rate 109 and respiratory rate 27. Blood pressure not obtainable at the time of my exam. LUNGS: Coarse bilaterally. No rales, rhonchi or wheezes. HEART: Tachycardic, regular. ABDOMEN: Obese, firm and tender. No bowel sounds. EXTREMITIES: Cool without palpable pulses. Capillary refill was sluggish. LABORATORY DATA: White blood cell count 13.4, hemoglobin 6.8, hematocrit 21.1 and platelets 363. Sodium 144, potassium 4.3, chloride 113, CO2 12, BUN 45, creatinine 1.2, blood sugar 177, pH 7.43, pCO2 30, pO2 greater than 420 and HCO3 21. Portable chest x-ray status post triple lumen catheter shows free intraperitoneal air with satisfactory placement of the endotracheal tube and right internal jugular catheter. No pneumothorax. KUB shows NG tube in the stomach. CT of the abdomen and pelvis as previously discussed. EKG on admission shows atrial fibrillation with intermittent pacing. IMPRESSION: 1. Acute hypoxemic hypercapnic respiratory failure. Emergently intubated on arrival to the intensive care unit. 2. Perforated viscus, cecal enlargement and pneumatosis of the ascending colon. 3. Septic shock from peritonitis and UTI. 4. Metabolic acidosis. 5. Acute anemia of blood loss. 6. Coagulopathy, PTT was 73 - likely secondary to sepsis. 7. History of chronic obstructive pulmonary disease. 8. Chronic atrial fibrillation. 9. Diastolic dysfunction. PLAN: Vasopressors were escalated and she was given an additional 2 liters of normal saline. Antibiotics were continued. As noted above, triple lumen catheter and arterial catheter were placed. Discussions were undertaken regarding consent for abdominal surgery and the patient's power of state attorney eventually decided to forego that option. She preferred that the patient be made comfortable. I then stopped her unnecessary medications after explaining to her power of state attorney the utility of morphine and Ativan at end of life care. She was started on a morphine infusion and given several boluses of morphine. I was in and out of the room multiple times to make sure she was comfortable. Eventually, her vasopressors were stopped. She was placed on CPAP and extubated. She eventually at 18:45. She was in PEA at that time. Family was at the bedside. Critical care time; 60 minutes excluding procedures. MACI
[2017-01-24] MEDS ORDERED: PANTOprazole INJ 40 MG in SYRINGE 0 ML IV SCH (09:00)
--- NOTE | 2017-01-24 11:09 | Death Summary ---
Summary of Admission Date Jan 23, 2017 at 02:06 Date & Time of Jan 23, 2017. 1845 Cause of sepsis from perforated colon Hospital Course 76 F admitted with metabolic encephalopathy found to have free air in abdomen from perforated colon and fear of sigmoid mass Pt decompensated hemodynamically requiring maximal support, preventing possibility of going to OR, and family felt she would not want to be on prolonged ICU support that likely would be required post op. Family at bedside and decision to stop support was made, pt quickly from sepsis. Copy To Jesus mAaya M.D.
== END 2017-01-23 20:45 | disposition expired | DRG 871 ==
LOC: ENRESERVTM → ENRESERVDT → EDBD 23:46 → C.EDB 23:47 → C.2T 01-23 02:06 → C.MSICU 01-23 15:20
PROVIDERS: ADMIT Hospitalist; ATTEND Internal Medicine
PROC: 05HM33Z Insertion of Infusion Device into Right Internal Jugular Vein, Percutaneous Approach (ICD-10-PCS; principal; 2017-01-23)
DX: A41.9 Sepsis, unspecified organism (principal); K63.1 Perforation of intestine (nontraumatic); R65.21 Severe sepsis with septic shock; G93.41 Metabolic encephalopathy; J96.02 Acute respiratory failure with hypercapnia; J96.01 Acute respiratory failure with hypoxia; I50.32 Chronic diastolic (congestive) heart failure; N30.00 Acute cystitis without hematuria; K57.92 Diverticulitis of intestine, part unspecified, without perforation or abscess without bleeding; E87.2 Acidosis; I48.91 Unspecified atrial fibrillation; Z95.0 Presence of cardiac pacemaker; I35.0 Nonrheumatic aortic (valve) stenosis; I25.10 Atherosclerotic heart disease of native coronary artery without angina pectoris; Z95.2 Presence of prosthetic heart valve; Z79.01 Long term (current) use of anticoagulants; J44.9 Chronic obstructive pulmonary disease, unspecified; K21.9 Gastro-esophageal reflux disease without esophagitis; I95.9 Hypotension, unspecified; R62.7 Adult failure to thrive; N32.89 Other specified disorders of bladder; E11.649 Type 2 diabetes mellitus with hypoglycemia without coma; E03.9 Hypothyroidism, unspecified; M10.9 Gout, unspecified